=== PATIENT | female | born 1935 | race Caucasian/White ===

== ENCOUNTER 2019-09-13 09:08 | Outpatient (CLI) | payer MEDICARE, SELFPAY ==
[2019-09-13 09:57] LABS: Basophils Absolute Auto 0.1 K/mm3 (0.0-0.1); Basophils Percent Auto 0.5 % (0.2-1.2); Eosinophils Absolute Auto 0.1 K/mm3 (0-0.3); Eosinophils Percent Auto 1.1 % (0-4.4); Hematocrit 37.9 % (37.0-47.0); Hemoglobin 11.7 g/dL (12.0-15.0); Immature Granulocyte Absolute 0.05 K/mm3 (0.00-0.031); Immature Granulocyte Percent A 0.4 % (0-0.5); Lymphocytes Absolute Auto 1.04 K/mm3 (0.9-3.2); Lymphocytes Percent Auto 8.5 % (18.3-44.2); Mean Corpuscular HGB Conc 30.9 g/dl (32-36); Mean Corpuscular Hemoglobin 29.3 pg (26-34); Mean Corpuscular Volume 94.8 fl (80-100); Mean Platelet Volume 12.2 fl (7.4-10.4); Monocytes Percent Auto 8.5 % (2.6-8.5); Neutrophils Absolute Auto 9.9 K/mm3 (1.3-6.7); Platelet Count Result 168 k/mm3 (150-375); Red Cell Distribution Width 14.2 % (11.5-14.5); White Blood Count 12.2 K/mm3 (4.5-10.0)
[2019-09-13 10:03] LABS: Hemoglobin A1C 5.8 % (<5.7)
[2019-09-13 10:05] LABS: Blood Urea Nitrogen 22 mg/dL (7-17); Calcium 10.1 mg/dL (8.4-10.2); Carbon Dioxide 29 mmol/L (22-30); Chloride 102 mmol/L (98-107); Cholesterol 131 mg/dL (0-200); Estimated Glomerular Filt Rate 43; Glucose 110 mg/dL (65-105); HDL Direct 69 mg/dL; Potassium 4.1 mmol/L (3.4-5.0); Sodium 137 mmol/L (137-145); Triglycerides 51 mg/dL (<150)
[2019-09-13 10:16] LABS: LDL Cholesterol Direct 39 mg/dL
== END 2019-09-13 09:09 | disposition home or self-care (01) ==
PROVIDERS: PCP Internal Medicine; Visit Provider Internal Medicine
DX: E78.2 Mixed hyperlipidemia (principal); I10 Essential (primary) hypertension; E11.9 Type 2 diabetes mellitus without complications
CPT/HCPCS: 36415; 80048; 80061; 83036; 85025

== ENCOUNTER 2019-10-19 12:15 | Outpatient (CLI) | payer MEDICARE, SELFPAY ==
[2019-10-19 12:47] LABS: Basophils Percent Auto 0.5 % (0.2-1.2); Eosinophils Absolute Auto 0.3 K/mm3 (0-0.3); Eosinophils Percent Auto 3.8 % (0-4.4); Hemoglobin 11.4 g/dL (12.0-15.0); Immature Granulocyte Absolute 0.03 K/mm3 (0.00-0.031); Immature Granulocyte Percent A 0.4 % (0-0.5); Lymphocytes Absolute Auto 1.51 K/mm3 (0.9-3.2); Lymphocytes Percent Auto 17.8 % (18.3-44.2); Mean Corpuscular HGB Conc 31.7 g/dl (32-36); Mean Corpuscular Hemoglobin 29.8 pg (26-34); Mean Corpuscular Volume 94.2 fl (80-100); Mean Platelet Volume 11.8 fl (7.4-10.4); Monocytes Absolute Auto 0.8 K/mm3 (0.1-0.6); Monocytes Percent Auto 8.9 % (2.6-8.5); Neutrophils Absolute Auto 5.8 K/mm3 (1.3-6.7); Neutrophils Percent Auto 68.6 % (45.5-73.1); Platelet Count Result 176 k/mm3 (150-375); Red Blood Count 3.82 M/mm3 (4.2-5.4); Red Cell Distribution Width 14.6 % (11.5-14.5); White Blood Count 8.5 K/mm3 (4.5-10.0)
[2019-10-19 13:03] LABS: Blood Urea Nitrogen 19 mg/dL (7-17); CRP 2.1 mg/dL (<1.0); Carbon Dioxide 25 mmol/L (22-30); Chloride 106 mmol/L (98-107); Estimated Glomerular Filt Rate 53; Glucose 88 mg/dL (65-105); Potassium 4.4 mmol/L (3.4-5.0); Sodium 137 mmol/L (137-145)
[2019-10-19 13:41] LABS: Erythrocyte Sedimentation Rate 77 mm/hr (0-20)
== END 2019-10-19 12:16 | disposition home or self-care (01) ==
PROVIDERS: PCP Internal Medicine; Visit Provider Internal Medicine
DX: M35.3 Polymyalgia rheumatica (principal); E11.9 Type 2 diabetes mellitus without complications
CPT/HCPCS: 36415; 80048; 85025; 85652; 86140

== ENCOUNTER 2019-11-26 10:24 | Outpatient (CLI) | payer MEDICARE, SELFPAY ==
[2019-11-26 11:17] LABS: Erythrocyte Sedimentation Rate 22 mm/hr (0-20)
[2019-11-26 11:21] LABS: Blood Urea Nitrogen 29 mg/dL (7-17); CRP 0.6 mg/dL (<1.0); Calcium 9.8 mg/dL (8.4-10.2); Carbon Dioxide 26 mmol/L (22-30); Chloride 106 mmol/L (98-107); Estimated Glomerular Filt Rate 39; Glucose 113 mg/dL (65-105); Potassium 4.7 mmol/L (3.4-5.0); Sodium 138 mmol/L (137-145)
[2019-11-26 11:23] LABS: Hemoglobin A1C 5.8 % (<5.7)
== END 2019-11-26 10:25 | disposition home or self-care (01) ==
LOC: ANHLAB 10:27
PROVIDERS: PCP Internal Medicine; Visit Provider Internal Medicine
DX: E11.9 Type 2 diabetes mellitus without complications (principal); M35.3 Polymyalgia rheumatica; I10 Essential (primary) hypertension
CPT/HCPCS: 36415; 80048; 83036; 85652; 86140

== ENCOUNTER 2019-12-14 10:22 | Observation (INO) | payer MEDICARE, SELFPAY ==
[2019-12-14] VITALS (10 sets, daily range): BP systolic 119–163; BP diastolic 67–107; PULSE 80–106; RESP 16–22; TEMP 36.3–37.3; O2SAT 97–100; BMI 28.8
--- NOTE | ~2019-12-14 | XR_ITS ---
EXAMINATION: XR hip BI 2V w AP pelvis DATE: 12/15/2019 08:29 INDICATION: Chronic bilateral hip pain TECHNIQUE: AP view the pelvis and two views of each hip were obtained. COMPARISON: 05/20/2018 FINDINGS: There are changes of left hip hemiarthroplasty. There is moderate right hip osteoarthritis. Bone alignment is normal. There is no fracture. Phleboliths are noted in the pelvis. IMPRESSION: 1. No acute osseous abnormality. Reviewed, dictated and finalized at location B.
--- NOTE | ~2019-12-14 | XR_ITS ---
EXAMINATION: XR chest 1V INDICATION: Leukocytosis and generalized weakness TECHNIQUE: AP view of the chest is obtained COMPARISON: 05/19/2018 FINDINGS: The lungs are free of acute opacities. There is no pleural effusion or pneumothorax. The ca rdiomediastinal silhouette is normal. The visualized bones and soft tissues are unremarkable. IMPRESSION: 1. No acute cardiopulmonary abnormality. Reviewed, dictated and finalized at location B.
[2019-12-14 10:56] LABS: Basophils Percent Auto 0.2 % (0.2-1.2); Eosinophils Percent Auto 0.2 % (0-4.4); Hematocrit 40.5 % (37.0-47.0); Hemoglobin 13.2 g/dL (12.0-15.0); Immature Granulocyte Absolute 0.13 K/mm3 (0.00-0.031); Immature Granulocyte Percent A 0.8 % (0-0.5); Lymphocytes Absolute Auto 1.27 K/mm3 (0.9-3.2); Lymphocytes Percent Auto 7.9 % (18.3-44.2); Mean Corpuscular HGB Conc 32.6 g/dl (32-36); Mean Corpuscular Hemoglobin 31.4 pg (26-34); Mean Corpuscular Volume 96.4 fl (80-100); Mean Platelet Volume 11.6 fl (7.4-10.4); Monocytes Absolute Auto 1.6 K/mm3 (0.1-0.6); Monocytes Percent Auto 9.7 % (2.6-8.5); Neutrophils Percent Auto 81.2 % (45.5-73.1); Platelet Count Result 165 k/mm3 (150-375); Red Cell Distribution Width 15.7 % (11.5-14.5); White Blood Count 16.1 K/mm3 (4.5-10.0)
[2019-12-14 11:10] LABS: Alanine Aminotransferase 23 U/L (4-35); Albumin Level 4.1 g/dL (3.5-5.1); Alkaline Phosphatase 89 U/L (38-126); Aspartate Amino Transferase 31 U/L (14-36); Bilirubin,Total 1.1 mg/dL (0.2-1.3); Blood Urea Nitrogen 21 mg/dL (7-17); Calcium 10.1 mg/dL (8.4-10.2); Carbon Dioxide 28 mmol/L (22-30); Chloride 104 mmol/L (98-107); Creatine Kinase 142 U/L (30-135); Estimated CRCL calculation 33 ml/min; Estimated Glomerular Filt Rate 47; Glucose 106 mg/dL (65-105); Sodium 140 mmol/L (137-145)
--- NOTE | 2019-12-14 11:46 | ED.WEAKNESS ---
HPI - Weakness General Chief complaint: Weakness Stated complaint: Weakness Time Seen by Provider: 12/14/19 11:35 History of Present Illness HPI Narrative: Patient presents via EMS from home after falling on the floor and not being able to get up all night. She has polymyalgia rheumatica, and has severe hip pain. She is currently on prednisone for that, but it is not helping the pain or the weakness. She is unable to sit herself up in the exam bed. She has chronic hip pain. He has been walking with a walker and a cane. She has a lifeline but did not use it last night waiting for her cousin Angelique to come and pick her up. Angelique said she is not strong enough to pick her up. The daughter lives in [place] and was on the phone and wants her mom to go back to rehab. If rehab does not work she will need long-term nursing care. The patient is oriented x3 I would prefer to go back home but does not have sufficient help there. She has not been sick recently. MD Complaint: generalized weakness Onset (ago): hour(s) Duration: constant Location: generalized Context: history of similar Associated symptoms: denies other symptoms Related Data Home Medications Medication Instructions Recorded Confirmed ascorbate calcium (vitamin C) 500 500 mg PO DAILY 04/19/19 11/26/19 mg tablet aspirin 81 mg tablet,delayed 81 mg PO DAILY 04/19/19 11/26/19 release blood sugar diagnostic #10 each 04/19/19 11/26/19 magnesium oxide 400 mg PO DAILY 04/19/19 11/26/19 potassium chloride 10 mEq 10 meq PO DAILY 04/19/19 11/26/19 tablet,extended release vitamin B complex 1 tablet PO DAILY 04/19/19 11/26/19 multivit with 1 tablet PO DAILY 09/21/19 11/26/19 [id number] 8 mg iron-400 mcg-300 mcg tablet Allergies Allergy/AdvReac Type Severity Reaction Status Date / Time No Known Allergies Allergy Unknown Verified 11/26/19 09:48 Review of Systems Review of Systems: Narrative: CONSTITUTIONAL: Denies fever, chills, or sweats. EYES: Denies visual changes, redness, or discharge. ENT: Denies rhinorrhea, congestion, sore throat, or otalgia. CARDIOVASCULAR: Denies chest pain, palpitations, or edema. RESPIRATORY: Denies cough or dyspnea. GASTROINTESTINAL: Denies abdominal pain, nausea, vomiting, or diarrhea. GENITOURINARY: Denies dysuria or hematuria. SKIN: Denies rash or itching. MUSCULOSKELETAL: Denies back pain, but has bilateral hip pain. NEUROLOGIC: Denies headache, numbness, but has generalized weakness.. All systems reviewed & are unremarkable except as noted in HPI and below PMFSH Past Medical History Medical History Abnormal finding of blood chemistry, unspecified Arrhythmia Benign essential hypertension BMI 29.0-29.9,adult BMI 30.0-30.9,adult BMI 31.0-31.9,adult Cellulitis Diastolic dysfunction DJD (degenerative joint disease), multiple sites DM type 2 (diabetes mellitus, type 2) Encounter for routine adult health examination without abnormal findings Follow up Hyperlipidemia On long-term drug therapy Pedal edema Valvular heart disease Social History Social History Second hand tobacco smoke exposure: No Alcohol intake: never Exam Narrative: Exam Narrative: GENERAL: Well-appearing, well-nourished, and in no acute distress. HEAD: Normocephalic, atraumatic. EYES: PERRLA and EOMI. ENT: Nares clear, no rhinorrhea or epistaxis. Mucous membranes moist. NECK: Supple. CHEST: Clear to auscultation. No respiratory distress. HEART: Regular rate and rhythm. No murmur heard. Normal peripheral pulses. ABDOMEN: Soft, nontender, nondistended, normal active bowel sounds. EXTREMITIES: Normal range of motion. No edema. SKIN: Warm, dry, no rash. NEURO: No focal deficits. Alert and oriented x3. PSYCH: Normal mood and affect. Course Consultations Consultation #1: The daughter from [place] was on the phone and wants her mom to
[2019-12-14 12:13] LABS: Add Urine Microscopic? YES; Appearance Urine Clear (Clear); Bilirubin Urine Negative (Negative); Blood Urine Negative (Negative); Color Urine Yellow (Yellow); Glucose Urine UA Negative (Negative); Ketones Urine Trace mg/dL (Negative); Leukocyte Esterase Ur Negative LEU/UL (Negative); Nitrate Urine Negative (Negative); Protein Urine Negative (Negative); RBC Urine 0-2 /hpf (0-2); Specific Grav Ur 1.011 (1.001-1.035); Urobilinogen Urine Negative mg/dL (<2.0)
[2019-12-14 13:28] LABS: CRP 6.8 mg/dL (<1.0)
[2019-12-14 14:05] LABS: Erythrocyte Sedimentation Rate 44 mm/hr (0-20)
--- NOTE | 2019-12-14 14:22 | ADMGEN ---
This patient, Nery Agrawal, was admitted to 3 Med Surg Room 322-01. Patient/family oriented to hospital policies and general routines including ID bracelet, bed and alarms, visiting hours, pain management, procedures, bathroom and other care routines, personal items, smoking policy, room service/diet, and visiting hours. Valuables list has been completed. Information on how to activate the Rapid Response Team has been discussed. Patient/Family are encouraged to report perceived risks to care and to ask questions if they do not understand what they are told or what they should do.
--- NOTE | 2019-12-14 16:00 | PM.IMHP ---
H&P: HPI History of Present Illness Chief complaint: Generalized weakness. Narrative: Nery Agrawal is an 84-year-old female with history of memory loss, paroxysmal atrial fibrillation, hypertension, chronic kidney disease, and polymyalgia rheumatica presented to the emergency department earlier this morning via EMS from home for evaluation of generalized weakness. She was seen by Dr. Cheikh Galvan on October 19, 2019 with complaints of 3 to 4 weeks worth aching in her shoulders hips and low back. She was started on prednisone 40 milligrams for polymyalgia rheumatica and was doing much better when she was seen in follow-up on November 25. Unfortunately her symptoms worsened when her steroid taper hit 10 mg a day. She has pain and weakness, more so in her left hip but she has aching in her lower back and upper arms/shoulders as well. last night when she tried to get up to go to the bathroom, she was too weak to stand up, and she slid herself off the chair and onto her buttocks on the floor. She is able to scoot around but could not get herself up to the toilet so she lie on the floor from around midnight until 0930. It sounds as though a cousin came to check up on the patient and found her on the floor. She has a Life Alert necklace however did not push the button because I forgot it was there. At the time my evaluation she has no active complaints. Her children think that she needs to go to a rehab facility, and she is okay with that but she is hesitant to move to assisted living. She denies falling last night and tells me she purposely slid herself off the chair onto the floor as she knew she would fall if she stood up. She denies head trauma and loss of consciousness. She sustained no injuries. She has not had fever, chills, or sweats. No nausea, vomiting, or diarrhea. No dysuria. Review of Systems Review of Systems: Narrative: Twelve systems were reviewed with pertinent positives and negatives as per HPI. No fever, chills, or sweats. No recent cold or flu symptoms. She denies cough and shortness of breath. No travel or sick contacts. She denies chest pain, pleuritic pain, and palpitations. She is not on long-term anticoagulation for her paroxysmal atrial fibrillation, presumably due to fall risk. Except as documented, all other systems were reviewed and are negative. [facility] Past Medical History Medical History (Updated 12/14/19 @ 22:50 by Arianne Mcfadden PA-C) Benign essential hypertension Cellulitis Chronic kidney disease, stage 3 Baseline creatinine around 1.20. Degenerative joint disease Diastolic dysfunction recent echocardiogram showed mild mitral valve regurgitation, grade 1 diastolic dysfunction, ejection fraction of 69%. Hyperlipidemia Kidney stones Memory loss Parathyroid adenoma Paroxysmal atrial fibrillation Polymyalgia rheumatica Type 2 diabetes mellitus Hemoglobin A1c was 5.8% on 11/26/2019. Valvular heart disease Surgical History Surgical History (Updated 12/14/19 @ 20:50 by Arianne Mcfadden PA-C) History of bunionectomy of both great toes History of parathyroidectomy Family History Family History Father Family history of diabetes mellitus in first degree relative Diabetes mellitus Mother Family history of malignant neoplasm of brain Hypertension Other Family history of coronary artery disease Social History Social History (Updated 12/14/19 @ 20:52 by Arianne Mcfadden PA-C) Social History: Surrogate decision maker: Therese Agrawal, daughter. Code status: Full code. Smoking status: Never smoker Second hand tobacco smoke exposure: No Alcohol intake: current Substance use type: does not use Additional living arrangements comments: Patient lives in her own home in [place]. Occupation/Education: retired Gender identity (if verbalized by the patient): Female Sexual Orientation (if Verbalized by the Patien
[2019-12-14] MEDS: METOPROLOL TARTRATE 25 MG TABLET PO (21:42)
[2019-12-14] MEDS: predniSONE 20 MG TABLET 40 MG PO (21:42)
[2019-12-14] MEDS: SODIUM CHLORIDE 0.9% IV 500 ML IV CONT (23:25)
[2019-12-15 06:00] VITALS: BP 172/79; PULSE 76; RESP 18; TEMP 36.7; O2SAT 96
[2019-12-15 06:13] LABS: Basophils Percent Auto 0.1 % (0.2-1.2); Hematocrit 37.1 % (37.0-47.0); Hemoglobin 11.8 g/dL (12.0-15.0); Immature Granulocyte Absolute 0.07 K/mm3 (0.00-0.031); Immature Granulocyte Percent A 0.9 % (0-0.5); Lymphocytes Absolute Auto 0.44 K/mm3 (0.9-3.2); Lymphocytes Percent Auto 5.4 % (18.3-44.2); Mean Corpuscular HGB Conc 31.8 g/dl (32-36); Mean Corpuscular Hemoglobin 30.6 pg (26-34); Mean Corpuscular Volume 96.1 fl (80-100); Mean Platelet Volume 11.6 fl (7.4-10.4); Monocytes Absolute Auto 0.3 K/mm3 (0.1-0.6); Monocytes Percent Auto 3.2 % (2.6-8.5); Neutrophils Absolute Auto 7.3 K/mm3 (1.3-6.7); Neutrophils Percent Auto 90.4 % (45.5-73.1); Platelet Count Result 148 k/mm3 (150-375); Red Blood Count 3.86 M/mm3 (4.2-5.4); Red Cell Distribution Width 15.5 % (11.5-14.5); White Blood Count 8.1 K/mm3 (4.5-10.0)
[2019-12-15 06:29] LABS: Glucose Point of Care 125 (65-105)
[2019-12-15 06:46] LABS: Anion Gap 9.2 mmol/L (7-16); Blood Urea Nitrogen 21 mg/dL (7-17); Calcium 9.1 mg/dL (8.4-10.2); Carbon Dioxide 25 mmol/L (22-30); Chloride 106 mmol/L (98-107); Estimated CRCL calculation 36 ml/min; Estimated Glomerular Filt Rate 53; Glucose 130 mg/dL (65-105); Potassium 4.2 mmol/L (3.4-5.0); Sodium 136 mmol/L (137-145)
[2019-12-15 08:49] LABS: Glucose Point of Care 124 (65-105)
[2019-12-15] MEDS: IRBESARTAN 150 MG TABLET 300 MG PO (08:55)
[2019-12-15] MEDS: THERAPEUTIC MULTIVITAMINS/MINERALS TAB (*BKC) 1 TABLET PO (08:55)
[2019-12-15] MEDS: MAGNESIUM OXIDE 400 MG TABLET PO (08:55)
[2019-12-15] MEDS: VITAMIN B COMPLEX CAPSULE 1 CAP PO (08:55)
[2019-12-15] MEDS: FUROSEMIDE 40 MG TABLET PO (08:56)
[2019-12-15] MEDS: predniSONE 20 MG TABLET 40 MG PO (08:56)
[2019-12-15] MEDS: ASPIRIN 81 MG ENTERIC TABLET PO (08:56)
[2019-12-15] MEDS: POTASSIUM CHLORIDE 10 MEQ TABLET.ER PO (08:56)
[2019-12-15] MEDS: ASCORBIC ACID 500 MG TABLET PO (08:56)
[2019-12-15 08:57] VITALS: PULSE 62
[2019-12-15] MEDS: METOPROLOL TARTRATE 25 MG TABLET PO (08:57)
--- NOTE | 2019-12-15 11:08 | PM.IMPN ---
Progress Note: A&P Assessment and Plan (1) Polymyalgia rheumatica: Code(s): M35.3 - Polymyalgia rheumatica Status: Acute Assessment and Plan: Patient recently diagnosed by PCP with PMR and was started on prednisone. It seems her symptoms worsened (MIQUEL hip pain, weakness primarily) as her prednisone dose tapered lower. Previous provider discussed with Dr Galvan a longer prednisone taper. XR of MIQUEL hips unremarkable. Care coordination arranging discharge to SNF. Ordered COVID test for discharge planning. (2) Generalized weakness: Code(s): R53.1 - Weakness Status: Acute Assessment and Plan: PT/OT. Anticipate possible discharge to rehab. (3) Chronic kidney disease, stage 3: Code(s): N18.3 - Chronic kidney disease, stage 3 (moderate) Status: Chronic Assessment and Plan: Cr stable on review of previous labs. (4) Type 2 diabetes mellitus: Code(s): E11.9 - Type 2 diabetes mellitus without complications Status: Acute Assessment and Plan: A1c 5.8% on 11/26/2019. Hold home Jardiance. Monitor with Accu-cheks and cover with SSI. Blood sugars appropriate this morning. (5) Benign essential hypertension: Code(s): I10 - Essential (primary) hypertension Status: Acute Assessment and Plan: BP elevated this AM prior to mornning medications. Continue home lopressor and monitor. Will add PRN hydralazine if needed. (6) Leukocytosis: Code(s): D72.829 - Elevated white blood cell count, unspecified Status: Resolved Assessment and Plan: Resolved today. Likely due to recent steroid use and inflammation from PMR; no infectious process suspected. Subjective Date/time seen: 12/15/19 1030 Interval history: Ms. Agrawal is a pleasant 84yo F admitted for weakness and hip pain with polymyalgia rheumatica. She is feeling a bit better this morning. She is agreeable to discharging to rehab. She denies chest pain or shortness of breath. She denies nausea or vomiting and has tolerated some breakfast. Review of Systems Review of Systems: Narrative: Twelve systems were reviewed with pertinent positives and negatives as per HPI. Exam Narrative: Exam Narrative: General: Elderly female sitting comfortably in bedside chair in no acute distress. HEENT: Normocephalic, EOMI, oral mucosa moist. Cardiovascular: Rate and rhythm are regular. Respiratory: Lungs clear to auscultation all [place]. Non-labored breathing. Abdomen: Soft, non-tender, non-distended, bowel sounds present. Extremities: Peripheral pulses intact. No edema. Neuro: No focal neurological deficits. Speech is clear. Objective Data Vital Signs Vital Signs: Last Vital Signs Temp 98.0 F 12/15/19 06:00 Pulse 62 12/15/19 08:57 Resp 18 12/15/19 06:00 BP 172/79 H 12/15/19 06:00 Pulse Ox 96 12/15/19 06:00 Intake/Output Intake/Output: Intake & Output 12/12/19 12/13/19 12/14/19 12/15/19 23:59 23:59 23:59 23:59 Intake Total 300 820 Output Total 400 Balance 300 420 Meds/Results Medications: Active Medications Generic Name Dose Route Start Last Admin Trade Name Freq PRN Reason Stop Dose Admin Ascorbic Acid 500 mg 12/15/19 09:00 12/15/19 08:56 Vitamin C PO 500 mg DAILY VANI Administration Aspirin 81 mg 12/15/19 09:00 12/15/19 08:56 Aspirin Ec PO 81 mg DAILY VANI Administration Dextrose 12.5 gm 12/14/19 22:52 Dextrose 50% Syringe IV PUSH PRN PRN Hypoglycemia Protocol Furosemide 40 mg 12/15/19 09:00 12/15/19 08:56 Lasix Tablet PO 40 mg QAM VANI Administration Glucagon 1 mg 12/14/19 22:52 Glucagon For Inj IM PRN PRN Hypoglycemia Protocol Glucose 15 gm 12/14/19 22:52 Glutose 15 PO
[2019-12-15 12:47] LABS: Glucose Point of Care 123 (65-105)
[2019-12-15 14:00] VITALS: BP 138/74; PULSE 77; RESP 18; TEMP 36.8; O2SAT 98
--- NOTE | 2019-12-19 05:19 | PM.DS ---
DS: Admitting Diagnosis Admitting Diagnosis Admitting Diagnosis: Polymyalgia rheumatica DS: Discharge Diagnosis Discharge Diagnosis (1) Polymyalgia rheumatica: Code(s): M35.3 - Polymyalgia rheumatica Status: Acute Assessment and Plan: Patient recently diagnosed by PCP with PMR and was started on prednisone. It seems her symptoms worsened (MIQUEL hip pain, weakness primarily) as her prednisone dose tapered lower. Previous provider discussed with Dr Galvan a longer prednisone taper. XR of MIQUEL hips unremarkable. Discharge to [facility] for continued PT/OT. (2) Generalized weakness: Code(s): R53.1 - Weakness Status: Acute Assessment and Plan: PT/OT. TR. (3) Chronic kidney disease, stage 3: Code(s): N18.3 - Chronic kidney disease, stage 3 (moderate) Status: Chronic Assessment and Plan: Cr stable on review of previous labs. (4) Type 2 diabetes mellitus: Code(s): E11.9 - Type 2 diabetes mellitus without complications Status: Acute Assessment and Plan: A1c 5.8% on 11/26/2019. Hold home Jardiance. Blood sugars appropriate this morning. (5) Benign essential hypertension: Code(s): I10 - Essential (primary) hypertension Status: Acute Assessment and Plan: BP elevated this AM prior to mornning medications. BP improved to 138/74 prior to discharge, continue home Lopressor. (6) Leukocytosis: Code(s): D72.829 - Elevated white blood cell count, unspecified Status: Resolved Assessment and Plan: Resolved today. Likely due to recent steroid use and inflammation from PMR; no infectious process suspected. DS: Summary Hospital Course Hospital Course: Date of Service 12/15/19 Ms. Agrawal is an 84 yo F who had recently be diagnosed with polymyalgia rheumatica by her PCP and was prescribed prednisone taper, who presented to the ED for evaluation of worsening bilateral hip pain. She laid on the floor from 0000 to 0930 when family found her as she could not get off the floor. She described that her symptoms were improved on prednisone but began to worsen once the dose tapered down to 10mg daily. She was otherwise medically stable. Previous PA spoke with patient's PCP, Dr Galvan, and they agreed on restarting prednisone at 40 mg daily with a longer taper. She worked with PT/ OT and was felt to be a good candidate for continued therapy at [facility]. She was hemodynamically stable for discharge to [facility] on 12/15/19 and will follow up with Dr Galvan after her discharge. Time Spent with Patient Time attestation: Total time spent providing and/or coordinating discharge services: 35 minutes Exam Narrative: Exam Narrative: Last Vital Signs Temp 98.3 F 12/15/19 14:00 Pulse 77 12/15/19 14:00 Resp 18 12/15/19 14:00 BP 138/74 12/15/19 14:00 Pulse Ox 98 12/15/19 14:00 General: Elderly female sitting comfortably in bedside chair in no acute distress. HEENT: Normocephalic, EOMI, oral mucosa moist. Cardiovascular: Rate and rhythm are regular. Respiratory: Lungs clear to auscultation all [place]. Non-labored breathing. Abdomen: Soft, non-tender, non-distended, bowel sounds present. Extremities: Peripheral pulses intact. No edema. Neuro: No focal neurological deficits. Speech is clear. DS: Data Imaging Radiologist's impression: ITS Impressions Chest X-Ray 12/15/19 08:35 IMPRESSION: 1. No acute cardiopulmonary abnormality. Hip/Pelvis X-Ray 12/15/19 08:38 IMPRESSION: 1. No acute osseous abnormality. Laboratory Tests 12/15/19 05:53 12/15/19 05:53 Discharge Plan Discharge Attending aric
== END 2019-12-15 16:45 ==
LOC: ANHED 12:33 → ANH3MEDSUR 13:33
PROVIDERS: Physician Assistant; Admitting Provider Internal Medicine; Emergency Provider Emergency Medicine; PCP Internal Medicine; Visit Provider Family Medicine
DX: M35.3 Polymyalgia rheumatica (principal); R53.1 Weakness; D72.829 Elevated white blood cell count, unspecified; I13.0 Hypertensive heart and chronic kidney disease with heart failure and stage 1 through stage 4 chronic kidney disease, or unspecified chronic kidney disease; E78.5 Hyperlipidemia, unspecified; I48.0 Paroxysmal atrial fibrillation; N18.3 Chronic kidney disease, stage 3 (moderate); E11.22 Type 2 diabetes mellitus with diabetic chronic kidney disease; I50.30 Unspecified diastolic (congestive) heart failure; Z79.82 Long term (current) use of aspirin
CPT/HCPCS: 36415; 51701; 71045; 73521; 80048; 80053; 81001; 82550; 84443; 85025; 85652; 86140; 97161; 97165; 99285; A9270; G0378; J7040; J7512

== ENCOUNTER 2019-12-15 16:54 | IRF | payer MEDICARE, SELFPAY ==
[2019-12-15 16:54] VITALS: BP 117/75; PULSE 56; RESP 18; TEMP 36.4; O2SAT 98; BMI 30.4
--- NOTE | 2019-12-15 16:54 | PC.NURSE ---
This patient, Nery Agrawal, was admitted to [facility] Room 221-02. Patient/family oriented to hospital policies and general routines including ID bracelet, bed and alarms, visiting hours, pain management, procedures, bathroom and other care routines, personal items, smoking policy, room service/diet, and visiting hours. Valuables list has been completed. Information on how to activate the Rapid Response Team has been discussed. Patient/Family are encouraged to report perceived risks to care and to ask questions if they do not understand what they are told or what they should do.
[2019-12-15 17:09] VITALS: BMI 30.4
[2019-12-15 17:12] VITALS: PULSE 58; RESP 18; O2SAT 97
[2019-12-15 20:55] VITALS: PULSE 66
[2019-12-15] MEDS: METOPROLOL TARTRATE 25 MG TABLET PO (20:55)
--- NOTE | 2019-12-15 20:56 | PM.DS ---
DS: Summary Hospital Course Hospital Course: Date of Service 12/15/19 Ms. Agrawal is an 84yo F Time Spent with Patient Time attestation: Total time spent providing and/or coordinating discharge services: 35 minutes Discharge Plan Discharge Follow-up/Referrals: Dr Galvan [Provider Group] (Follow up; call for appointment once you have discharged from rehab unit at [phone]) Discharge Medications: No Action Centrum Silver Women 8 mg iron-400 mcg-300 mcg tablet 1 tablet PO DAILY RF: 0 prednisone 10 mg tablet 40 mg PO DAILY 56 Days Qty: 140 RF: 0 furosemide [Lasix] 40 mg tablet 40 mg PO QAM RF: 0 aspirin [Adult Low Dose Aspirin] 81 mg tablet,delayed release (DR/EC) 81 mg PO DAILY RF: 0 vitamin B complex Tablet 1 tablet PO DAILY RF: 0 magnesium oxide 400 mg magnesium tablet 400 mg PO DAILY RF: 0 (DME) Blood Glucose Test Strip See Rx Instructions .ROUTE .MEDSUPPLY Qty: 10 RF: 0 ascorbate calcium (vitamin C) 500 mg tablet 500 mg PO DAILY RF: 0 potassium chloride [Klor-Con 10] 10 mEq tablet extended release 10 meq PO DAILY RF: 0 triamcinolone acetonide 0.1 % cream 1 applic TOPICAL BID Qty: 30 RF: 1 nystatin 100,000 unit/gram cream 1 applic TOPICAL BID Qty: 30 RF: 1 Januvia 100 mg tablet 100 mg PO DAILY Qty: 90 RF: 3 metoprolol tartrate 25 mg tablet 25 mg PO BID Qty: 180 RF: 3 rosuvastatin 10 mg tablet 10 mg PO DAILY Qty: 90 RF: 3 irbesartan 300 mg tablet 300 mg PO DAILY Qty: 90 RF: 3 Date of admission: 12/15/19 16:54 Primary Care Provider: Cheikh Galvan Admitting Provider: Jose R Donovan Attending physician on admission: Jose R Donovan
[2019-12-15 21:18] LABS: Glucose Point of Care 173 (65-105)
[2019-12-15 22:00] VITALS: BP 135/87; PULSE 75; RESP 17; TEMP 36.4; O2SAT 98
[2019-12-16 04:59] LABS: Basophils Percent Auto 0.2 % (0.2-1.2); Eosinophils Absolute Auto 0.1 K/mm3 (0-0.3); Eosinophils Percent Auto 0.4 % (0-4.4); Hematocrit 37.3 % (37.0-47.0); Immature Granulocyte Percent A 0.8 % (0-0.5); Lymphocytes Absolute Auto 1.24 K/mm3 (0.9-3.2); Lymphocytes Percent Auto 9.3 % (18.3-44.2); Mean Corpuscular HGB Conc 32.2 g/dl (32-36); Mean Corpuscular Volume 96.4 fl (80-100); Mean Platelet Volume 11.3 fl (7.4-10.4); Monocytes Absolute Auto 1.4 K/mm3 (0.1-0.6); Monocytes Percent Auto 10.4 % (2.6-8.5); Neutrophils Absolute Auto 10.5 K/mm3 (1.3-6.7); Neutrophils Percent Auto 78.9 % (45.5-73.1); Platelet Count Result 156 k/mm3 (150-375); Red Blood Count 3.87 M/mm3 (4.2-5.4); Red Cell Distribution Width 15.3 % (11.5-14.5); White Blood Count 13.3 K/mm3 (4.5-10.0)
[2019-12-16 05:17] LABS: Anion Gap 7.8 mmol/L (7-16); Blood Urea Nitrogen 31 mg/dL (7-17); Calcium 9.1 mg/dL (8.4-10.2); Carbon Dioxide 29 mmol/L (22-30); Chloride 103 mmol/L (98-107); Estimated CRCL calculation 34 ml/min; Estimated Glomerular Filt Rate 47; Glucose 128 mg/dL (65-105); Potassium 3.8 mmol/L (3.4-5.0); Sodium 136 mmol/L (137-145)
[2019-12-16 06:00] VITALS: BP 149/60; PULSE 60; RESP 18; TEMP 36.3; O2SAT 96
[2019-12-16 06:58] LABS: Glucose Point of Care 98 (65-105)
[2019-12-16] MEDS: ASPIRIN 81 MG ENTERIC TABLET PO (08:35)
[2019-12-16] MEDS: FUROSEMIDE 40 MG TABLET PO (08:35)
[2019-12-16] MEDS: ASCORBIC ACID 500 MG TABLET PO (08:35)
[2019-12-16 08:36] VITALS: PULSE 60
[2019-12-16] MEDS: THERAPEUTIC MULTIVITAMINS/MINERALS TAB (*BKC) 1 TABLET PO (08:36)
[2019-12-16] MEDS: IRBESARTAN 150 MG TABLET 300 MG PO (08:36)
[2019-12-16] MEDS: METOPROLOL TARTRATE 25 MG TABLET PO ×2 (08:36→20:49)
[2019-12-16] MEDS: MAGNESIUM OXIDE 400 MG TABLET PO (08:36)
[2019-12-16] MEDS: POTASSIUM CHLORIDE 10 MEQ TABLET.ER PO (08:36)
[2019-12-16] MEDS: predniSONE 10 MG TABLET 40 MG PO (08:37)
[2019-12-16] MEDS: ROSUVASTATIN 10 MG TABLET PO (08:37)
[2019-12-16] MEDS: VITAMIN B COMPLEX CAPSULE 1 CAP PO (08:37)
--- NOTE | 2019-12-16 10:00 | WPDREHABHP ---
H&P: HPI History of Present Illness Chief complaint: Debility/Polymyalgia/Rheumatica Narrative: Nery Agrawal is a 84 year old femaleHISTORY OF PRESENT ILLNESS: The patient's primary rehab impairment category is rheumatoid and other arthritis The etiologic diagnosis is polymyalgia rheumatica with significant weakness of both upper lower extremities proximal distance about equally involved and generalize weakness and aches and pains starting from the lower part of the neck all the way down to her feet and ankles I saw this patient [id number] on December 16, 2019 at 10:00 a.m. The patient is a very pleasant 84-year-old woman with a history of memory loss, proximal atrial fibrillation, hypertension, chronic kidney disease and polymyalgia rheumatica which was initially diagnosed several weeks ago and she was on prednisone on doing fairly well she presented to [facility]'s emergency department on December 14, 2019. She arrived via EMS from home for evaluation of generalized weakness. The patient was initially seen by her primary care physician on October 19, 2019 with complaints of 3 to 4 weeks worth of aching in her shoulders hips and low back. She was started on prednisone 40 milligram for new diagnosis of polymyalgia rheumatica and was doing much better when she was seen for follow-up on November 25. Unfortunately her symptoms worsened where his toy taper hit 10 milligram a day. She had pain and weakness more in her left hip but also in the lower back and upper arms and shoulders. On the night of December 13, 2019 when the patient tried to get up to the bathroom she was too weak to stand up. She then slid herself off the chair onto her buttocks on the floor. She was able to scoot around but could not get herself up the toilet so she continue to lie on the floor from 12:00 a.m. until 9:30 a.m. on December 14, 2019 her cousin came to check on the patient and found her on the floor. She has a Life Alert necklace but did not push the button because she forgot it was there. The patient vital signs in the emergency room were fairly decent and oxygenation on room air was 99% blood pressure was also fairly decent [place] [address] and decent BUN and creatinine and glucose of 106 on December 15, 2019 the patient's x-rays of chest and hip and pelvis revealed no abnormalities. Lab work revealed hemoglobin of 11.8 sodium 136 BUN of 21 and creatinine of 1.0. The glucose was 125 the patient's A1c was noted to be 5.8 and November 25 so the hospitalist held her home GERD aunts and the patient will become monitored and covered with a sliding scale insulin the patient blood pressure has been elevated during this hospital stay and her home medications Lopressor was continued and p.r.n. hydralazine was added. The patient will require belt pressure monitoring and medication adjustments prior to discharge home. Lab work we monitoring the rehab due to elevated BUN and also CRP glucose and low hemoglobin. The patient initial treatment of polymyalgia rheumatica was unsuccessful with the patient is having performed weakness and intractable pain resulting in hospitalization. Patient presents less awake alert well oriented x3 and demonstrated significant decrease in the strength gait deviation higher imbalance and significant amount of the pain weakness is much more performed in the lower extremities than the upper extremities and aches and pains her prednisone has been increased back to 40 milligram daily for right now Therapy was initiated at the acute care facility and the patient transferred to us from [facility] on December 15, 2019 FALLS OR SURGERIES: The patient has had no major surgeries in the 100 days prior to admission. They had falls in the past year. They had no falls with injury in the past year. PAST MEDICAL HISTORY: benign essential hypertension, cellulitis, chronic kidney disease stage 3, did to joint disease, diastolic dysfunction, hype
[2019-12-16 12:09] LABS: Glucose Point of Care 148 (65-105)
[2019-12-16 12:26] VITALS: BMI 30.4
[2019-12-16 14:00] VITALS: BP 125/79; PULSE 74; RESP 20; TEMP 37.1; O2SAT 95
--- NOTE | 2019-12-16 14:53 | PCCCNOTE ---
On 12/16/19, the student, [Augusto Naqvi ], provided care and completed [facility] documentation on this patient. I have reviewed the student's documentation and agree with the findings.
--- NOTE | 2019-12-16 15:33 | RPD ---
INDIVIDUALIZED PLAN OF CARE FOR Nery Agrawal Brief Synthesis of Pre-Admission Screen, Post-Admission Evaluation and Therapy Evaluations: The patient presents to rehab with polymyalgia rheumatica. Comorbidities include leukocytosis, stage 3 CKD, polymyagia rheumatica, type 2 diabetes mellitus, diastolic dysfunction, DJD, paroxysmal atrial fibrillation, hyperlipidemia, hypertension, hyponatremia, cellulitis, valvular heart disease, pedal edema, anemia, hyperglycemia, and pain. The patient?s needs will be best met in an intensive program vs. at a lower level of care. The patient requires physician services for medical oversight, management of medical complications during her hospital stay in the setting of present comorbidities, and pain management. The patient requires nursing services for medication management and education, pressure relief and skin care management, monitoring of labs, diabetes management and education, and fall/safety precautions. Deficits include:ADLs, Balance, Cognition, Endurance, Family Training/Education, Mobility, Pain Management, ROM, Safety, Strength, Transfers Machine Slat Basket Maker/Case Management for: Discharge Planning and Patient/Family Counseling Physical Therapy: 5 days per week for 75 minutes. Treatments may include: Therapeutic Exercise, Gait Training, Neuromuscular Re-education, Transfer Training, Community Reintegration, Bed Mobility, Patient/Family Education, Wheelchair Mobility Group Therapy/Concurrent Therapy Rationales: -Improve attention span during functional activities in a distracted environment. -Enhance problem solving and/or adequate judgment skills during functional activities in a distracted environment. -Promote increased safety awareness in a distracted environment to reduce fall risk with functional tasks, transfers, and ambulation to allow a more safe, self-sufficient return to the home environment. -Improve dynamic balance skills to promote safety and independence with functional activities in a distracted environment for maximum gain. Occupational Therapy: 5 days per week for 75 minutes. Treatments may include: Therapeutic Exercise, Therapeutic Activity, Cognitive Training, Self-Care Transfer Training, Community Reintegration, Home Management, Patient/Family Education, Wheelchair Mobility Training, Energy Conservation Training Group Therapy/Concurrent Therapy Rationales: -Allow therapist to observe and teach generalization and carry-over of skills learned in individual therapy. -Enhance problem solving and sequencing skills during therapeutic activities in a distracted environment. -Promote increased safety awareness in a realistic setting to reduce fall risk with functional tasks due to visual and verbal distractions. -Increase functional level with ADLs, ADL transfers and use of adaptive equipment through therapeutic activities with others while promoting safety to allow a more safe, self-sufficient return home. Speech Therapy: 5 days per week for 30 minutes. Treatments may include: Dysphasia Therapy, Speech/Language/Communication Therapy, Cognitive Training, Patient/Family Education Group Therapy/Concurrent Therapy - Rationale: -Allow therapist to observe and teach generalization and carry-over of skills learned in individual therapy. -Improve comprehension skills with complex or abstract ideas through discussion in a realistic setting. -Enhance problem solving skills with complex issues during activities in a distracted environment. -Promote increased memory skills and concentration in a distracted environment for a safe transition home. -Improve attention and focus with language/communication skills in a realistic and supportive therapeutic setting. -Allow for practice of expression of basic needs and ideas through functional activities with others. Medical Prognosis: Good Anticipated Length of Stay: 7 days Rehab Goals: Eating Goal: 06-Independent Oral Hygiene Goal: 06-Independent Toileting Hygie
[2019-12-16 17:08] LABS: Glucose Point of Care 224 (65-105)
[2019-12-16 20:49] VITALS: PULSE 68
[2019-12-16 21:23] LABS: Glucose Point of Care 95 (65-105)
[2019-12-16 22:00] VITALS: BP 150/72; PULSE 70; RESP 19; TEMP 36.6; O2SAT 99
[2019-12-17 04:55] LABS: Potassium 3.9 mmol/L (3.4-5.0)
[2019-12-17 06:00] VITALS: BP 136/68; PULSE 54; RESP 16; TEMP 36.3; O2SAT 95
[2019-12-17 06:40] LABS: Glucose Point of Care 91 (65-105)
[2019-12-17] MEDS: ASPIRIN 81 MG ENTERIC TABLET PO (09:32)
[2019-12-17] MEDS: ASCORBIC ACID 500 MG TABLET PO (09:33)
[2019-12-17] MEDS: IRBESARTAN 150 MG TABLET 300 MG PO (09:33)
[2019-12-17] MEDS: FUROSEMIDE 40 MG TABLET PO (09:33)
[2019-12-17 09:38] VITALS: PULSE 54
[2019-12-17] MEDS: THERAPEUTIC MULTIVITAMINS/MINERALS TAB (*BKC) 1 TABLET PO (09:38)
[2019-12-17] MEDS: MAGNESIUM OXIDE 400 MG TABLET PO (09:38)
[2019-12-17] MEDS: POTASSIUM CHLORIDE 10 MEQ TABLET.ER PO (09:38)
[2019-12-17] MEDS: METOPROLOL TARTRATE 25 MG TABLET PO ×2 (09:38→20:35)
[2019-12-17] MEDS: ROSUVASTATIN 10 MG TABLET PO (09:39)
[2019-12-17] MEDS: predniSONE 10 MG TABLET 40 MG PO (09:39)
[2019-12-17] MEDS: VITAMIN B COMPLEX CAPSULE 1 CAP PO (09:40)
[2019-12-17 11:55] LABS: Glucose Point of Care 116 (65-105)
--- NOTE | 2019-12-17 13:53 | PCPTNOTE ---
Nery Laura Agrawal was evaluated for a wheeled walker on 12/17/2019 by this physical therapist internal medicine physician assistant. The wheeled walker will resolve patient's mobility limitations and will be used for ADL's within the home. The patient can safely use the wheeled walker. ?The wheeled walker will resolve the patient?s mobility deficits, including impaired balance and decreased endurance.
[2019-12-17 14:00] VITALS: BP 103/64; PULSE 50; RESP 18; TEMP 36.7; O2SAT 98
--- NOTE | 2019-12-17 14:40 | WPDNEURORHBP ---
Subjective Date/time seen: 12/17/19 14:40 Interval history: this 84-year-old is here because of significant debility related to body myalgia rheumatica she is relatively better comparing to previous several days being on a higher dose of prednisone she denies any headache nausea vomiting chest pain shortness of breath she is hard of hearing which is stable her daughter worse present who is from [facility] and her questions were answered to the best of my ability Review of Systems Review of Systems: All systems reviewed & are unremarkable except as noted in HPI and below Functional Status Ambulation Ability Ability to Ambulate 10 Feet: Contact Guard Ability to Ambulate 50 Feet With 2 Turns: Contact Guard Ambulation Assistive Devices: Walker, Wheeled Transfers Ability Ability to Transfer In/Out of Chair: Contact Guard Exam Const: General: comfortable and no acute distress HENMT: General nose exam: Normal nares present Mouth: Yes moist mucous membranes Eyes: General: appearance normal, both eyes and all related structures Neck: Neck: supple and no JVD Resp: Effort & Inspection: normal respiratory effort Auscultation: clear to auscultation bilaterally Cardio: Rate: regular rate Rhythm: regular rhythm GI: GI Palp: Yes Soft to palpation Auscultation: normal bowel sounds Skin: General skin exam: normal color and no rashes or lesions noted Neuro: Other: patient is awake alert well oriented with mild short-term memory deficit and also [id number] she has generalized weakness of both upper lower extremities proximal more than distal and the arthritic changes and multiple tender spots throughout her upper and lower extremities including the upper torso on the lower torso Extrem: Other: arthritic changes in the hands ankles and the feet Psych: Mental Status: mental status grossly normal Other: mild short-term memory deficit Objective Data Vital Signs Vital Signs: Vital Signs - 24 hr 12/16/19 20:49 12/16/19 22:00 12/17/19 06:00 Temperature 36.6 C 36.3 C L Pulse Rate 68 70 54 L Respiratory Rate 19 16 Blood Pressure 150/72 H 136/68 Pulse Oximetry 99 95 12/17/19 09:38 Temperature Pulse Rate 54 L Respiratory Rate Blood Pressure Pulse Oximetry Intake/Output Intake/Output: Intake & Output 12/14/19 12/15/19 12/16/19 12/17/19 23:59 23:59 23:59 23:59 Intake Total 480 240 Balance 480 240 Meds/Results Medications: Active Medications Generic Name Dose Route Start Last Admin Trade Name Fareed PRN Reason Stop Dose Admin Ascorbic Acid 500 mg 12/16/19 09:00 12/17/19 09:33 Vitamin C PO 500 mg DAILY [facility] Administration Aspirin 81 mg 12/16/19 09:00 12/17/19 09:32 Aspirin Ec PO 81 mg DAILY [facility] Administration Furosemide 40 mg 12/16/19 09:00 12/17/19 09:33 Lasix Tablet PO 40 mg QAM [facility] Administration Irbesartan 300 mg 12/16/19 09:00 12/17/19 09:33 Avapro PO 300 mg DAILY [facility] Administration Magnesium Oxide 400 mg 12/16/19 09:00 12/17/19 09:38 Mag-Ox PO 400 mg DAILY [facility] Administration Metoprolol Tartrate 25 mg 12/15/19 21:00 12/17/19 09:38 Lopressor PO 25 mg Q12HR [facility] Administration Multivitamins/Calcium 1 tablet 12/16/19 09:00 12/17/19 09:38 Therapeutic Multivitamins/Minerals PO 1 tablet DAILY [facility] Administration Non-Formulary Medication 1 applic 12/16/19 09:00 Nystatin TOPICAL 01/15/20 09:01 BID [facility] Potassium Chloride 10 meq 12/16/19 09:00 12/17/19 09:38 Kcl Tablet PO 10 meq DAILY [facility] Administration Prednisone 40 mg 12/16/19 09:00 12/17/19 09:39 Prednisone PO 02/08/20 08:59 40 mg DAILY [facility] Administration Taper Rosuvastatin Calcium 10 mg 12/16/19 09:00 12/17/19 09:39 Crestor PO 10 mg DAILY [facility] Administration Sitagliptin Phosphate 100 mg 12/16/19 09:00 12/17/19 09:39 Januvia PO 100 mg DAILY [facility] Administration Triamcinolone Acetonide 1 applic
[2019-12-17] MEDS: CALCIUM CARBONATE (OSCAL) 500 MG TABLET PO (17:40)
[2019-12-17 17:45] LABS: Glucose Point of Care 191 (65-105)
[2019-12-17 20:35] VITALS: PULSE 72
[2019-12-17 20:44] LABS: Glucose Point of Care 151 (65-105)
[2019-12-17 21:41] VITALS: BP 120/71; PULSE 93; RESP 18; TEMP 35.9; O2SAT 97
[2019-12-18 06:00] VITALS: BP 136/53; PULSE 67; RESP 18; TEMP 36.2; O2SAT 100
[2019-12-18 06:50] LABS: Glucose Point of Care 95 (65-105)
[2019-12-18 08:00] VITALS: PULSE 67; RESP 18; O2SAT 100
[2019-12-18] MEDS: FUROSEMIDE 40 MG TABLET PO (08:49)
[2019-12-18] MEDS: predniSONE 10 MG TABLET 40 MG PO (08:49)
[2019-12-18] MEDS: MAGNESIUM OXIDE 400 MG TABLET PO (08:49)
[2019-12-18] MEDS: CALCIUM CARBONATE (OSCAL) 500 MG TABLET PO ×2 (08:49→17:10)
[2019-12-18] MEDS: CHOLECALCIFEROL 1,000 UNIT TABLET 1000 UNITS PO (08:49)
[2019-12-18] MEDS: THERAPEUTIC MULTIVITAMINS/MINERALS TAB (*BKC) 1 TABLET PO (08:49)
[2019-12-18] MEDS: VITAMIN B COMPLEX CAPSULE 1 CAP PO (08:49)
[2019-12-18 08:50] VITALS: PULSE 67
[2019-12-18] MEDS: ASCORBIC ACID 500 MG TABLET PO (08:50)
[2019-12-18] MEDS: ASPIRIN 81 MG ENTERIC TABLET PO (08:50)
[2019-12-18] MEDS: IRBESARTAN 150 MG TABLET 300 MG PO (08:50)
[2019-12-18] MEDS: POTASSIUM CHLORIDE 10 MEQ TABLET.ER PO (08:50)
[2019-12-18] MEDS: ROSUVASTATIN 10 MG TABLET PO (08:50)
[2019-12-18] MEDS: METOPROLOL TARTRATE 25 MG TABLET PO ×2 (08:50→20:38)
[2019-12-18 14:00] VITALS: BP 122/62; PULSE 78; RESP 20; TEMP 36.6; O2SAT 100
[2019-12-18 16:30] LABS: Glucose Point of Care 152 (65-105)
[2019-12-18 20:38] VITALS: PULSE 78
[2019-12-18 20:42] LABS: Glucose Point of Care 155 (65-105)
[2019-12-18 21:35] VITALS: BP 122/48; PULSE 60; RESP 18; TEMP 36.1; O2SAT 98
[2019-12-19 06:00] VITALS: BP 146/52; PULSE 52; RESP 18; TEMP 35.4; O2SAT 98
[2019-12-19 06:48] LABS: Glucose Point of Care 96 (65-105)
[2019-12-19 07:18] LABS: Potassium 4.3 mmol/L (3.4-5.0)
[2019-12-19 08:00] VITALS: PULSE 58; RESP 18; O2SAT 98
[2019-12-19] MEDS: MAGNESIUM OXIDE 400 MG TABLET PO (08:39)
[2019-12-19] MEDS: VITAMIN B COMPLEX CAPSULE 1 CAP PO (08:39)
[2019-12-19] MEDS: CHOLECALCIFEROL 1,000 UNIT TABLET 1000 UNITS PO (08:39)
[2019-12-19 08:40] VITALS: PULSE 58
[2019-12-19] MEDS: METOPROLOL TARTRATE 25 MG TABLET PO ×2 (08:40→20:48)
[2019-12-19] MEDS: FUROSEMIDE 40 MG TABLET PO (08:40)
[2019-12-19] MEDS: IRBESARTAN 150 MG TABLET 300 MG PO (08:40)
[2019-12-19] MEDS: POTASSIUM CHLORIDE 10 MEQ TABLET.ER PO (08:40)
[2019-12-19] MEDS: predniSONE 10 MG TABLET 40 MG PO (08:40)
[2019-12-19] MEDS: ROSUVASTATIN 10 MG TABLET PO (08:41)
[2019-12-19] MEDS: ASCORBIC ACID 500 MG TABLET PO (08:41)
[2019-12-19] MEDS: THERAPEUTIC MULTIVITAMINS/MINERALS TAB (*BKC) 1 TABLET PO (08:41)
[2019-12-19] MEDS: ASPIRIN 81 MG ENTERIC TABLET PO (08:41)
[2019-12-19] MEDS: CALCIUM CARBONATE (OSCAL) 500 MG TABLET PO ×2 (08:41→17:19)
[2019-12-19 14:00] VITALS: BP 105/59; PULSE 54; RESP 18; TEMP 37; O2SAT 98
[2019-12-19 16:55] LABS: Glucose Point of Care 222 (65-105)
[2019-12-19 20:18] VITALS: BP 107/67; PULSE 64; RESP 18; TEMP 36.5; O2SAT 98
[2019-12-19 20:48] VITALS: PULSE 64
[2019-12-20 06:00] VITALS: BP 145/55; PULSE 75; RESP 20; TEMP 36.5; O2SAT 98
[2019-12-20 06:33] LABS: Glucose Point of Care 88 (65-105)
[2019-12-20] MEDS: POTASSIUM CHLORIDE 10 MEQ TABLET.ER PO (08:54)
[2019-12-20] MEDS: predniSONE 10 MG TABLET 40 MG PO (08:54)
[2019-12-20 08:55] VITALS: PULSE 76; RESP 18; O2SAT 98
[2019-12-20] MEDS: ROSUVASTATIN 10 MG TABLET PO (08:55)
[2019-12-20] MEDS: ASCORBIC ACID 500 MG TABLET PO (08:55)
[2019-12-20] MEDS: CALCIUM CARBONATE (OSCAL) 500 MG TABLET PO ×2 (08:55→18:01)
[2019-12-20] MEDS: ASPIRIN 81 MG ENTERIC TABLET PO (08:55)
[2019-12-20] MEDS: VITAMIN B COMPLEX CAPSULE 1 CAP PO (08:55)
[2019-12-20 08:56] VITALS: PULSE 76
[2019-12-20] MEDS: METOPROLOL TARTRATE 25 MG TABLET PO ×2 (08:56→20:15)
[2019-12-20] MEDS: FUROSEMIDE 40 MG TABLET PO (08:57)
[2019-12-20] MEDS: IRBESARTAN 150 MG TABLET 300 MG PO (08:57)
[2019-12-20] MEDS: THERAPEUTIC MULTIVITAMINS/MINERALS TAB (*BKC) 1 TABLET PO (08:57)
[2019-12-20] MEDS: MAGNESIUM OXIDE 400 MG TABLET PO (08:57)
[2019-12-20] MEDS: CHOLECALCIFEROL 1,000 UNIT TABLET 1000 UNITS PO (08:57)
--- NOTE | 2019-12-20 11:22 | WPDNEURORHBP ---
Subjective Date/time seen: seen on 12/19/19 12 noon and documented on 12/20/19 polymyalgia rheumatica with hearing deficit reviewed and treatment continued as such Review of Systems Review of Systems: All systems reviewed & are unremarkable except as noted in HPI and below Functional Status Ambulation Ability Ability to Ambulate 10 Feet: Standby Assistance Ability to Ambulate 50 Feet With 2 Turns: Standby Assistance Ambulation Assistive Devices: Walker, Wheeled Transfers Ability Ability to Transfer In/Out of Chair: Contact Guard Exam Const: General: cooperative, comfortable, no acute distress, well developed, alert and awake Nutritional Appearance: average body habitus HENMT: Head: normal to inspection and normocephalic General nose exam: Normal external nose present, Normal nares present and No nasal discharge present Face and sinus: normal facial exam Mouth: Yes Normal oral and palatal mucosa present, Yes tongue normal, Yes oropharynx normal, Yes moist mucous membranes and Yes Abnormal oral and palatal mucosa present Eyes: General: appearance normal, both eyes and all related structures Neck: Neck: full ROM Resp: Effort & Inspection: normal respiratory effort and able to speak in complete sentences Cardio: Rate: regular rate Rhythm: regular rhythm GI: Percussion: Yes normal to percussion Auscultation: normal bowel sounds Skin: General skin exam: no rashes or lesions noted Neuro: General: patient oriented x3, moves all extremities and CN's II-XI intact bilaterally Cranial nerves: Yes CN's II-XII intact bilaterally, Yes Equal, round and reactive pupils present, Yes Bilaterally intact EOM present, Yes Nystagmus not present, Yes facial symmetry, Yes Midline tongue present, Yes hard of hearing, Yes Ability to bilaterally rotate head present and Yes Altered sense of smell present Cognition (Neuro): abnormal cognition Speech: normal speech Motor exam (neuro): Abnormal motor strength present Sensory Exam: normal sensation Plantar Reflex Responses: downgoing: bilateral Extrem: General: normal to inspection and normal exam except as noted Psych: Appearance: grossly normal Mental Status: other (memory decreased) Speech and movement: Normal speech and movement present Affect: normal affect Attitude: cooperative Thought process: Normal thought process present Thought content: Yes Normal thought content present Insight: Fair insight present (Psych) Judgement: Fair judgement present (Psych) Objective Data Vital Signs Vital Signs: Vital Signs - 24 hr 12/19/19 14:00 12/19/19 20:18 12/19/19 20:48 Temperature 37.0 C 36.5 C Pulse Rate 54 L 64 64 Respiratory Rate 18 18 Blood Pressure 105/59 L 107/67 Pulse Oximetry 98 98 12/20/19 06:00 12/20/19 08:56 Temperature 36.5 C Pulse Rate 75 76 Respiratory Rate 20 Blood Pressure 145/55 H Pulse Oximetry 98 Intake/Output Intake/Output: Intake & Output 12/17/19 12/18/19 12/19/19 12/20/19 23:59 23:59 23:59 23:59 Intake Total 480 1440 1200 240 Balance 480 1440 1200 240 Meds/Results Medications: Active Medications Generic Name Dose Route Start Last Admin Trade Name Freq PRN Reason Stop Dose Admin Ascorbic Acid 500 mg 12/16/19 09:00 12/20/19 08:55 Vitamin C PO 500 mg DAILY [facility] Administration Aspirin 81 mg 12/16/19 09:00 12/20/19 08:55 Aspirin Ec PO 81 mg DAILY [facility] Administration Calcium Carbonate 500 mg 12/17/19 17:00 12/20/19 08:55 Oscal 500 Mg PO 500 mg BIDWM [facility] Administration Furosemide 40 mg 12/16/19 09:00 12/20/19 08:57 Lasix Tablet PO 40 mg QAM [facility] Administration Irbesartan 300 mg 12/16/19 09:00 12/20/19 08:57 Avapro PO 300 mg DAILY [facility] Administration Magnesium Oxide 400 mg 12/16/19 09:00 12/20/19 08:57 Mag-Ox PO 400 mg DAILY [facility] Administration Metoprolol Tartrate 25 mg 12/15/19 21:00 12/20/19 08:56 Lopressor PO 25 mg Q12HR [facility] Administration Multivitamins/Ca
[2019-12-20 11:51] LABS: Glucose Point of Care 130 (65-105)
[2019-12-20 14:00] VITALS: BP 123/58; PULSE 95; RESP 20; TEMP 36.7; O2SAT 96
[2019-12-20 17:04] LABS: Glucose Point of Care 140 (65-105)
[2019-12-20 20:15] VITALS: PULSE 72
[2019-12-20 20:42] LABS: Glucose Point of Care 168 (65-105)
[2019-12-20 21:43] VITALS: BP 110/66; PULSE 54; RESP 18; TEMP 35.9; O2SAT 96
[2019-12-21 05:54] LABS: Potassium 3.7 mmol/L (3.4-5.0)
[2019-12-21 06:00] VITALS: BP 144/48; PULSE 53; RESP 18; TEMP 35.6; O2SAT 100
[2019-12-21 06:45] LABS: Glucose Point of Care 91 (65-105)
[2019-12-21] MEDS: MAGNESIUM OXIDE 400 MG TABLET PO (10:04)
[2019-12-21] MEDS: FUROSEMIDE 40 MG TABLET PO (10:05)
[2019-12-21] MEDS: POTASSIUM CHLORIDE 10 MEQ TABLET.ER PO (10:05)
[2019-12-21] MEDS: THERAPEUTIC MULTIVITAMINS/MINERALS TAB (*BKC) 1 TABLET PO (10:05)
[2019-12-21 10:06] VITALS: PULSE 53
[2019-12-21] MEDS: IRBESARTAN 150 MG TABLET 300 MG PO (10:06)
[2019-12-21] MEDS: METOPROLOL TARTRATE 25 MG TABLET PO ×2 (10:06→20:11)
[2019-12-21] MEDS: ASPIRIN 81 MG ENTERIC TABLET PO (10:06)
[2019-12-21] MEDS: predniSONE 10 MG TABLET 40 MG PO (10:06)
[2019-12-21] MEDS: CHOLECALCIFEROL 1,000 UNIT TABLET 1000 UNITS PO (10:07)
[2019-12-21] MEDS: ASCORBIC ACID 500 MG TABLET PO (10:07)
[2019-12-21] MEDS: ROSUVASTATIN 10 MG TABLET PO (10:08)
[2019-12-21] MEDS: VITAMIN B COMPLEX CAPSULE 1 CAP PO (10:08)
[2019-12-21 11:26] LABS: Add Urine Microscopic? YES; Appearance Urine Turbid (Clear); Bilirubin Urine Negative (Negative); Blood Urine 2+ (Negative); Color Urine Yellow (Yellow); Glucose Urine UA Negative (Negative); Ketones Urine Negative (Negative); Leukocyte Esterase Ur 3+ LEU/UL (Negative); Nitrate Urine Negative (Negative); Protein Urine 2+ mg/dL (Negative); RBC Urine >75 /hpf (0-2); Specific Grav Ur 1.017 (1.001-1.035); Urobilinogen Urine Negative mg/dL (<2.0); WBC Clumps Urine Present /HPF; WBC Urine >75 /hpf
--- NOTE | 2019-12-21 12:20 | WPDNEURORHBP ---
Subjective Date/time seen: 12/21/19 12:20 Interval history: this 84-year-old woman with mild cognitive deficit is here because of debility/ reoccurrence of polymyalgia rheumatica for which she is on prednisone therapy. The patient denies any headache nausea vomiting chest pain shortness of breath fever chills sore throat Review of Systems Review of Systems: All systems reviewed & are unremarkable except as noted in HPI and below Functional Status Ambulation Ability Ability to Ambulate 10 Feet: Independent Ability to Ambulate 50 Feet With 2 Turns: Independent Ability to Ambulate 150 Feet: Contact Guard Ambulation Assistive Devices: Walker, Wheeled Transfers Ability Ability to Transfer In/Out of Chair: Contact Guard Exam Const: General: comfortable and no acute distress HENMT: General nose exam: Normal nares present Mouth: Yes moist mucous membranes Eyes: General: appearance normal, both eyes and all related structures Neck: Neck: supple and no JVD Resp: Effort & Inspection: normal respiratory effort Auscultation: clear to auscultation bilaterally Cardio: Rate: regular rate Rhythm: regular rhythm GI: GI Palp: Yes Soft to palpation Auscultation: normal bowel sounds Skin: General skin exam: normal color and no rashes or lesions noted Neuro: Other: the patient is awake and alert with mild short-term memory deficit her strength on her ability to the activities of daily living is improving and she is making progress Extrem: Other: multiple areas of tender spots including the head and shoulder arms in the legs with the arthritic changes in the hands and multiple joints Psych: Mental Status: mental status grossly normal Other: [id number] cognitive deficit Objective Data Vital Signs Vital Signs: Vital Signs - 24 hr 12/20/19 14:00 12/20/19 20:15 12/20/19 21:43 Temperature 36.7 C 35.9 C L Pulse Rate 95 72 54 L Respiratory Rate 20 18 Blood Pressure 123/58 L 110/66 Pulse Oximetry 96 96 12/21/19 06:00 12/21/19 10:06 Temperature 35.6 C L Pulse Rate 53 L 53 L Respiratory Rate 18 Blood Pressure 144/48 H Pulse Oximetry 100 Intake/Output Intake/Output: Intake & Output 12/18/19 12/19/19 12/20/19 12/21/19 23:59 23:59 23:59 23:59 Intake Total 1440 1200 720 240 Balance 1440 1200 720 240 Meds/Results Medications: Active Medications Generic Name Dose Route Start Last Admin Trade Name Fareed PRN Reason Stop Dose Admin Ascorbic Acid 500 mg 12/16/19 09:00 12/21/19 10:07 Vitamin C PO 500 mg DAILY [facility] Administration Aspirin 81 mg 12/16/19 09:00 12/21/19 10:06 Aspirin Ec PO 81 mg DAILY [facility] Administration Calcium Carbonate 500 mg 12/17/19 17:00 12/20/19 18:01 Oscal 500 Mg PO 500 mg BIDWM [facility] Administration Furosemide 40 mg 12/16/19 09:00 12/21/19 10:05 Lasix Tablet PO 40 mg QAM [facility] Administration Irbesartan 300 mg 12/16/19 09:00 12/21/19 10:06 Avapro PO 300 mg DAILY [facility] Administration Magnesium Oxide 400 mg 12/16/19 09:00 12/21/19 10:04 Mag-Ox PO 400 mg DAILY [facility] Administration Metoprolol Tartrate 25 mg 12/15/19 21:00 12/21/19 10:06 Lopressor PO 25 mg Q12HR [facility] Administration Multivitamins/Calcium 1 tablet 12/16/19 09:00 12/21/19 10:05 Therapeutic Multivitamins/Minerals PO 1 tablet DAILY [facility] Administration Non-Formulary Medication 1 applic 12/16/19 09:00 Nystatin TOPICAL 01/15/20 09:01 BID [facility] Potassium Chloride 10 meq 12/16/19 09:00 12/21/19 10:05 Kcl Tablet PO 10 meq DAILY [facility] Administration Prednisone 40 mg 12/16/19 09:00 12/21/19 10:06 Prednisone PO 02/08/20 08:59 40 mg DAILY [facility] Administration Taper Rosuvastatin Calcium 10 mg 12/16/19 09:00 12/21/19 10:08 Crestor PO 10 mg DAILY [facility] Administration Sitagliptin Phosphate 100 mg 12/16/19 09:00 12/21/19 10:07 Januvia PO 100 mg DAILY [facility] Administration Triamcinolone Acetonide
[2019-12-21 12:39] LABS: Glucose Point of Care 164 (65-105)
--- NOTE | 2019-12-21 13:48 | PCNFU ---
Nutrition Follow-Up Complete: Obesity related to hx excessive energy intake as evidenced by BMI of 30.4. Goal: Patient to consume 75% of meals or greater. Patient has met goal at 100% meal consumption. Pt current nutrition is Diabetic Consistent Carbohydrate. Nutrition recommendation: Agree with current recommendations Last recorded weight is 80.4 kg. Bowel Motility: last bowel movement reported on 12/18/19 Labs Reviewed: No updated labs. Recommend obtaining new labs. Meds Noted: Vitamin C, Lasix, Mag-Ox, MVI, KCl, Prednisone, Januvia, Vitamin B Complex, lopressor, multivitamin. vitamin D, crestor Additional Notes: Patient states appetite is good. Patient did not report any diet related concerns/questions at this time. Follow up every 7 days.
[2019-12-21 14:00] VITALS: BP 136/76; PULSE 93; RESP 20; TEMP 36; O2SAT 96
--- NOTE | 2019-12-21 14:04 | PCNSR ---
On 12/21/19, the student,Charli Kim, provided care and completed [facility] documentation on this patient. I have reviewed the student's documentation and agree with the findings.
[2019-12-21 17:07] LABS: Glucose Point of Care 212 (65-105)
[2019-12-21] MEDS: CALCIUM CARBONATE (OSCAL) 500 MG TABLET PO (17:21)
[2019-12-21 20:11] VITALS: PULSE 76
[2019-12-21 20:27] LABS: Glucose Point of Care 144 (65-105)
[2019-12-21 20:32] VITALS: BP 118/51; PULSE 67; RESP 18; TEMP 36.5; O2SAT 97
[2019-12-22 05:44] VITALS: BP 128/56; PULSE 51; RESP 20; TEMP 36; O2SAT 98
[2019-12-22 06:51] LABS: Glucose Point of Care 93 (65-105)
[2019-12-22] MEDS: CALCIUM CARBONATE (OSCAL) 500 MG TABLET PO ×2 (07:47→17:28)
[2019-12-22] MEDS: ASCORBIC ACID 500 MG TABLET PO (09:07)
[2019-12-22] MEDS: ASPIRIN 81 MG ENTERIC TABLET PO (09:07)
[2019-12-22] MEDS: CHOLECALCIFEROL 1,000 UNIT TABLET 1000 UNITS PO (09:08)
[2019-12-22] MEDS: VITAMIN B COMPLEX CAPSULE 1 CAP PO (09:08)
[2019-12-22] MEDS: FUROSEMIDE 40 MG TABLET PO (09:08)
[2019-12-22] MEDS: predniSONE 10 MG TABLET 40 MG PO (09:09)
[2019-12-22] MEDS: ROSUVASTATIN 10 MG TABLET PO (09:09)
[2019-12-22 09:10] VITALS: PULSE 51
[2019-12-22] MEDS: METOPROLOL TARTRATE 25 MG TABLET PO ×2 (09:10→20:45)
[2019-12-22] MEDS: POTASSIUM CHLORIDE 10 MEQ TABLET.ER PO (09:10)
[2019-12-22] MEDS: MAGNESIUM OXIDE 400 MG TABLET PO (09:10)
[2019-12-22] MEDS: THERAPEUTIC MULTIVITAMINS/MINERALS TAB (*BKC) 1 TABLET PO (09:10)
[2019-12-22] MEDS: IRBESARTAN 150 MG TABLET 300 MG PO (09:48)
[2019-12-22 12:08] LABS: Glucose Point of Care 144 (65-105)
[2019-12-22 14:00] VITALS: BP 119/55; PULSE 66; RESP 16; TEMP 36.4; O2SAT 100
--- NOTE | 2019-12-22 16:56 | WPDNEURORHBP ---
Subjective Date/time seen: 12/22/19 16:56 Interval history: this 84-year-old woman is here due to polymyalgia rheumatica and is on prednisone and doing fairly well she does have a mild short-term memory deficit her last CRP was over 7 and I will repeated to see with the effect of higher dose prednisone has done to it she does have some aches and pains which is now her concentrated on the lower extremities and around the pelvic area otherwise denies any headache nausea vomiting chest pain shortness of breath fever chills sore throat Review of Systems Review of Systems: All systems reviewed & are unremarkable except as noted in HPI and below Functional Status Ambulation Ability Ability to Ambulate 10 Feet: Independent Ability to Ambulate 50 Feet With 2 Turns: Independent Ability to Ambulate 150 Feet: Independent Ambulation Assistive Devices: Walker, Wheeled Transfers Ability Ability to Transfer In/Out of Chair: Independent Exam Const: General: comfortable and no acute distress HENMT: General nose exam: Normal nares present Mouth: Yes moist mucous membranes Eyes: General: appearance normal, both eyes and all related structures Neck: Neck: supple and no JVD Resp: Effort & Inspection: normal respiratory effort Auscultation: clear to auscultation bilaterally Cardio: Rate: regular rate Rhythm: regular rhythm GI: GI Palp: Yes Soft to palpation Auscultation: normal bowel sounds Skin: General skin exam: normal color and no rashes or lesions noted Neuro: Other: patient is awake and alert with mild short-term memory deficit in without any lateralizing weakness her tender spots in the upper torso as definitely much better she does have a tender spots around the pelvic area and the lower extremities Extrem: General: normal to inspection Other: arthritic changes are noted in multiple joints Psych: Other: mild short-term memory deficit Objective Data Vital Signs Vital Signs: Vital Signs - 24 hr 12/21/19 20:11 12/21/19 20:32 12/22/19 05:44 Temperature 36.5 C 36.0 C L Pulse Rate 76 67 51 L Respiratory Rate 18 20 Blood Pressure 118/51 L 128/56 L Pulse Oximetry 97 98 12/22/19 09:10 12/22/19 14:00 Temperature 36.4 C Pulse Rate 51 L 66 Respiratory Rate 16 Blood Pressure 119/55 L Pulse Oximetry 100 Intake/Output Intake/Output: Intake & Output 08/0212/20/19 12/21/19 12/22/19 23:59 23:59 23:59 23:59 Intake Total 1200 720 480 440 Balance 1200 720 480 440 Meds/Results Medications: Active Medications Generic Name Dose Route Start Last Admin Trade Name Fareed PRN Reason Stop Dose Admin Ascorbic Acid 500 mg 12/16/19 09:00 12/22/19 09:07 Vitamin C PO 500 mg DAILY [facility] Administration Aspirin 81 mg 12/16/19 09:00 12/22/19 09:07 Aspirin Ec PO 81 mg DAILY [facility] Administration Calcium Carbonate 500 mg 12/17/19 17:00 12/22/19 07:47 Oscal 500 Mg PO 500 mg BIDWM [facility] Administration Furosemide 40 mg 12/16/19 09:00 12/22/19 09:08 Lasix Tablet PO 40 mg QAM [facility] Administration Irbesartan 300 mg 12/16/19 09:00 12/22/19 09:48 Avapro PO 300 mg DAILY [facility] Administration Levofloxacin 500 mg 12/21/19 09:00 12/22/19 09:10 Levaquin Tab PO 12/27/19 09:01 500 mg DAILY [facility] Administration Magnesium Oxide 400 mg 12/16/19 09:00 12/22/19 09:10 Mag-Ox PO 400 mg DAILY [facility] Administration Metoprolol Tartrate 25 mg 12/15/19 21:00 12/22/19 09:10 Lopressor PO 25 mg Q12HR [facility] Administration Multivitamins/Calcium 1 tablet 12/16/19 09:00 12/22/19 09:10 Therapeutic Multivitamins/Minerals PO 1 tablet DAILY [facility] Administration Non-Formulary Medication 1 applic 12/16/19 09:00 Nystatin TOPICAL 01/15/20 09:01 BID [facility] Potassium Chloride 10 meq 12/16/19 09:00 12/22/19 09:10 Kcl Tablet PO 10 meq DAILY [facility] Administration Prednisone 40 mg 12/16/19 09:00 12/22/19 09:09 Prednisone PO 02/08/20 08:59 40 mg
[2019-12-22 17:20] LABS: Glucose Point of Care 177 (65-105)
[2019-12-22 18:17] LABS: CRP 2.8 mg/dL (<1.0)
[2019-12-22 20:24] LABS: Glucose Point of Care 222 (65-105)
[2019-12-22 20:45] VITALS: PULSE 66
[2019-12-22 21:48] VITALS: BP 117/63; PULSE 59; RESP 18; TEMP 36.2; O2SAT 96
[2019-12-23 04:52] LABS: Basophils Percent Auto 0.2 % (0.2-1.2); Eosinophils Absolute Auto 0.1 K/mm3 (0-0.3); Eosinophils Percent Auto 0.4 % (0-4.4); Hematocrit 39.2 % (37.0-47.0); Hemoglobin 12.7 g/dL (12.0-15.0); Immature Granulocyte Absolute 0.17 K/mm3 (0.00-0.031); Immature Granulocyte Percent A 1.2 % (0-0.5); Lymphocytes Absolute Auto 1.43 K/mm3 (0.9-3.2); Lymphocytes Percent Auto 10.4 % (18.3-44.2); Mean Corpuscular HGB Conc 32.4 g/dl (32-36); Mean Corpuscular Volume 95.6 fl (80-100); Mean Platelet Volume 11.8 fl (7.4-10.4); Monocytes Absolute Auto 1.5 K/mm3 (0.1-0.6); Monocytes Percent Auto 11.1 % (2.6-8.5); Neutrophils Absolute Auto 10.6 K/mm3 (1.3-6.7); Neutrophils Percent Auto 76.7 % (45.5-73.1); Platelet Count Result 159 k/mm3 (150-375); Red Cell Distribution Width 15.1 % (11.5-14.5); White Blood Count 13.8 K/mm3 (4.5-10.0)
[2019-12-23 05:30] LABS: Anion Gap 8.9 mmol/L (7-16); Blood Urea Nitrogen 42 mg/dL (7-17); Calcium 9.6 mg/dL (8.4-10.2); Carbon Dioxide 29 mmol/L (22-30); Chloride 102 mmol/L (98-107); Estimated CRCL calculation 27 ml/min; Estimated Glomerular Filt Rate 36; Glucose 109 mg/dL (65-105); Potassium 3.9 mmol/L (3.4-5.0); Sodium 136 mmol/L (137-145)
[2019-12-23 06:00] VITALS: BP 134/57; PULSE 57; RESP 18; TEMP 35.8; O2SAT 96
[2019-12-23 06:31] LABS: Glucose Point of Care 94 (65-105)
[2019-12-23] MEDS: MAGNESIUM OXIDE 400 MG TABLET PO (08:49)
[2019-12-23] MEDS: ROSUVASTATIN 10 MG TABLET PO (08:49)
[2019-12-23] MEDS: predniSONE 10 MG TABLET 40 MG PO (08:49)
[2019-12-23] MEDS: POTASSIUM CHLORIDE 10 MEQ TABLET.ER PO (08:49)
[2019-12-23] MEDS: IRBESARTAN 150 MG TABLET 300 MG PO (08:49)
[2019-12-23] MEDS: VITAMIN B COMPLEX CAPSULE 1 CAP PO (08:49)
[2019-12-23] MEDS: ASCORBIC ACID 500 MG TABLET PO (08:49)
[2019-12-23 08:50] VITALS: PULSE 57
[2019-12-23] MEDS: CALCIUM CARBONATE (OSCAL) 500 MG TABLET PO ×2 (08:50→17:41)
[2019-12-23] MEDS: CHOLECALCIFEROL 1,000 UNIT TABLET 1000 UNITS PO (08:50)
[2019-12-23] MEDS: ASPIRIN 81 MG ENTERIC TABLET PO (08:50)
[2019-12-23] MEDS: METOPROLOL TARTRATE 25 MG TABLET PO ×2 (08:50→20:47)
[2019-12-23] MEDS: THERAPEUTIC MULTIVITAMINS/MINERALS TAB (*BKC) 1 TABLET PO (08:52)
[2019-12-23] MEDS: FUROSEMIDE 40 MG TABLET PO (08:52)
[2019-12-23 14:00] VITALS: BP 131/55; PULSE 68; RESP 18; TEMP 36.3; O2SAT 98
[2019-12-23 18:03] LABS: Glucose Point of Care 178 (65-105)
[2019-12-23 20:47] VITALS: PULSE 76
[2019-12-23 22:00] VITALS: BP 129/69; PULSE 71; RESP 20; TEMP 36.6; O2SAT 99
[2019-12-24 06:00] VITALS: BP 146/58; PULSE 65; RESP 18; TEMP 36.2; O2SAT 97
[2019-12-24 06:57] LABS: Glucose Point of Care 96 (65-105)
[2019-12-24] MEDS: CALCIUM CARBONATE (OSCAL) 500 MG TABLET PO (08:36)
[2019-12-24] MEDS: FUROSEMIDE 40 MG TABLET PO (08:37)
[2019-12-24] MEDS: ASPIRIN 81 MG ENTERIC TABLET PO (08:37)
[2019-12-24] MEDS: CHOLECALCIFEROL 1,000 UNIT TABLET 1000 UNITS PO (08:37)
[2019-12-24] MEDS: ASCORBIC ACID 500 MG TABLET PO (08:37)
[2019-12-24] MEDS: IRBESARTAN 150 MG TABLET 300 MG PO (08:37)
[2019-12-24 08:38] VITALS: PULSE 68
[2019-12-24] MEDS: POTASSIUM CHLORIDE 10 MEQ TABLET.ER PO (08:38)
[2019-12-24] MEDS: MAGNESIUM OXIDE 400 MG TABLET PO (08:38)
[2019-12-24] MEDS: VITAMIN B COMPLEX CAPSULE 1 CAP PO (08:38)
[2019-12-24] MEDS: THERAPEUTIC MULTIVITAMINS/MINERALS TAB (*BKC) 1 TABLET PO (08:38)
[2019-12-24] MEDS: predniSONE 10 MG TABLET 40 MG PO (08:38)
[2019-12-24] MEDS: ROSUVASTATIN 10 MG TABLET PO (08:38)
[2019-12-24] MEDS: METOPROLOL TARTRATE 25 MG TABLET PO (08:38)
--- NOTE | 2019-12-24 11:03 | WPDNEURORHBP ---
Subjective Date/time seen: 12/24/19 11:03 Interval history: This 84-year-old low woman has completed the rehab process and is ready to be discharged today she denies any headache nausea vomiting chest pain shortness of breath her strength has improved and she is being treated for polymyalgia rheumatica with the tapering dosages of the prednisone medications were reviewed instructions were giving and the patient will follow-up with the primary care physician and the other physicians involved with her c Review of Systems Review of Systems: All systems reviewed & are unremarkable except as noted in HPI and below Functional Status Ambulation Ability Ability to Ambulate 10 Feet: Independent Ability to Ambulate 50 Feet With 2 Turns: Independent Ability to Ambulate 150 Feet: Independent Ambulation Assistive Devices: Walker, Wheeled Transfers Ability Ability to Transfer In/Out of Chair: Independent Exam Const: General: comfortable and no acute distress HENMT: General nose exam: Normal nares present Mouth: Yes moist mucous membranes Eyes: General: appearance normal, both eyes and all related structures Neck: Neck: supple and no JVD Resp: Effort & Inspection: normal respiratory effort Auscultation: clear to auscultation bilaterally Cardio: Rate: regular rate Rhythm: regular rhythm GI: GI Palp: Yes Soft to palpation Auscultation: normal bowel sounds Skin: General skin exam: normal color and no rashes or lesions noted Neuro: Other: patient is awake and alert well oriented does have a mild short-term memory deficit along on with the weakness which has significantly improved Extrem: Other: arthritic changes and the tender spots the tender spots around her lower torso are better also Psych: Mental Status: mental status grossly normal Other: [id number] memory deficit Objective Data Vital Signs Vital Signs: Vital Signs - 24 hr 12/23/19 14:00 12/23/19 20:47 12/23/19 22:00 Temperature 36.3 C L 36.6 C Pulse Rate 68 76 71 Respiratory Rate 18 20 Blood Pressure 131/55 L 129/69 Pulse Oximetry 98 99 12/24/19 06:00 12/24/19 08:38 Temperature 36.2 C L Pulse Rate 65 68 Respiratory Rate 18 Blood Pressure 146/58 H Pulse Oximetry 97 Intake/Output Intake/Output: Intake & Output 12/21/19 12/22/19 12/23/19 12/24/19 23:59 23:59 23:59 23:59 Intake Total 480 440 720 120 Balance 480 440 720 120 Meds/Results Medications: Active Medications Generic Name Dose Route Start Last Admin Trade Name Fareed CABALLERON Reason Stop Dose Admin Ascorbic Acid 500 mg 12/16/19 09:00 12/24/19 08:37 Vitamin C PO 500 mg DAILY [facility] Administration Aspirin 81 mg 12/16/19 09:00 12/24/19 08:37 Aspirin Ec PO 81 mg DAILY [facility] Administration Calcium Carbonate 500 mg 12/17/19 17:00 12/24/19 08:36 Oscal 500 Mg PO 500 mg BIDWM [facility] Administration Furosemide 40 mg 12/16/19 09:00 12/24/19 08:37 Lasix Tablet PO 40 mg QAM [facility] Administration Irbesartan 300 mg 12/16/19 09:00 12/24/19 08:37 Avapro PO 300 mg DAILY [facility] Administration Levofloxacin 500 mg 12/21/19 09:00 12/24/19 08:38 Levaquin Tab PO 12/27/19 09:01 500 mg DAILY [facility] Administration Magnesium Oxide 400 mg 12/16/19 09:00 12/24/19 08:38 Mag-Ox PO 400 mg DAILY [facility] Administration Metoprolol Tartrate 25 mg 12/15/19 21:00 12/24/19 08:38 Lopressor PO 25 mg Q12HR [facility] Administration Multivitamins/Calcium 1 tablet 12/16/19 09:00 12/24/19 08:38 Therapeutic Multivitamins/Minerals PO 1 tablet DAILY [facility] Administration Non-Formulary Medication 1 applic 12/16/19 09:00 Nystatin TOPICAL 01/15/20 09:01 BID [facility] Potassium Chloride 10 meq 12/16/19 09:00 12/24/19 08:38 Kcl Tablet PO 10 meq DAILY [facility] Administration Prednisone 40 mg 12/16/19 09:00 12/24/19 08:38 Prednisone PO 02/08/20 08:59 40 mg DAILY [facility] Administration Taper Rosuvastatin Calcium 10 mg
--- NOTE | 2019-12-29 14:08 | PM.DS ---
DS: Admitting Diagnosis Admitting Diagnosis Admitting Diagnosis: Polymyalgia rheumatica DS: Discharge Diagnosis Discharge Diagnosis (1) Hip pain, right: Code(s): M25.551 - Pain in right hip Status: Acute (2) Thrush: Code(s): B37.0 - Candidal stomatitis Status: Acute (3) BMI 28.0-28.9,adult: Code(s): Z68.28 - Body mass index (BMI) 28.0-28.9, adult Status: Acute (4) Hospital discharge follow-up: Code(s): Z09 - Encounter for follow-up examination after completed treatment for conditions other than malignant neoplasm Status: Acute (5) UTI (urinary tract infection): Code(s): N39.0 - Urinary tract infection, site not specified Status: Acute (6) Leukocytosis: Code(s): D72.829 - Elevated white blood cell count, unspecified Status: Resolved (7) Chronic kidney disease, stage 3: Code(s): N18.3 - Chronic kidney disease, stage 3 (moderate) Status: Chronic (8) Generalized weakness: Code(s): R53.1 - Weakness Status: Acute (9) Polymyalgia rheumatica: Code(s): M35.3 - Polymyalgia rheumatica Status: Acute (10) Type 2 diabetes mellitus: Code(s): E11.9 - Type 2 diabetes mellitus without complications Status: Acute (11) Diastolic dysfunction: Code(s): I51.89 - Other ill-defined heart diseases Status: Acute (12) DJD (degenerative joint disease), multiple sites: Qualifiers: Osteoarthritis type: unspecified Qualified Code(s): M15.9 - Polyosteoarthritis, unspecified Code(s): M15.9 - Polyosteoarthritis, unspecified Status: Acute (13) Valvular heart disease: Code(s): I38 - Endocarditis, valve unspecified Status: Acute DS: Summary Hospital Course Reason for hospitalization: This 84-year-old woman with underlying cognitive dysfunction was admitted due to significant weakness related to polymyalgia rheumatica along with the other medical issues mentioned in the above mentioned problems she received extensive therapy along with the medical management PT OT and gait training and was able to achieve the following independent measures Hospital Course: eating independent, oral hygiene independent, toileting independent, bathing setup, upper body dressing setup, lower body dressing setup, footwear independent, rolling in bed independent, sitting and lying independent, lying to sitting independent, sit to stand independent, chair transfers independent, toilet transfers independent, car transfers independent, walking 10 feet independent, walking 50 feet for 2 turns independent, walking 150 feet independent, walking 10 feet uneven surfaces independent, carbon are set up independent, 4 steps independent, 12 steps independent, picking up objects independent, wheelchair 50 feet independent, wheelchair 150 feet independent. The patient was discharged home with home health to follow no falls were recorded Time Spent with Patient Time attestation: Total time spent providing and/or coordinating discharge services: Exam Const: General: comfortable and no acute distress HENMT: General nose exam: Normal nares present Mouth: Yes dry mucous membranes Eyes: General: appearance normal, both eyes and all related structures Neck: Neck: supple and no JVD Resp: Effort & Inspection: normal respiratory effort Auscultation: clear to auscultation bilaterally Cardio: Rate: regular rate Rhythm: regular rhythm GI: GI Palp: Yes Soft to palpation Auscultation: normal bowel sounds Skin: General skin exam: normal color and no rashes or lesions noted Neuro: Other: patient is awake and alert well oriented however has short-term memory deficit overall weakness related to polymyalgia rheumatica significantly improved and she was able to achieve the independent measures as mentioned above Extrem: Other: evidence of arthritic changes in multiple joints along with some tender spots which had significan
== END 2019-12-24 12:45 | disposition home health service (06) | DRG 546 ==
PROVIDERS: Admitting Provider Psychiatry & Neurology Neurology; PCP Internal Medicine; Visit Provider Psychiatry & Neurology Neurology
DX: M35.3 Polymyalgia rheumatica (principal); E87.1 Hypo-osmolality and hyponatremia; I38 Endocarditis, valve unspecified; R53.1 Weakness; R60.0 Localized edema; D72.829 Elevated white blood cell count, unspecified; D63.1 Anemia in chronic kidney disease; E78.5 Hyperlipidemia, unspecified; E11.22 Type 2 diabetes mellitus with diabetic chronic kidney disease; H91.90 Unspecified hearing loss, unspecified ear; I12.9 Hypertensive chronic kidney disease with stage 1 through stage 4 chronic kidney disease, or unspecified chronic kidney disease; I48.91 Unspecified atrial fibrillation; I51.89 Other ill-defined heart diseases; M15.9 Polyosteoarthritis, unspecified; N18.3 Chronic kidney disease, stage 3 (moderate); R41.3 Other amnesia; Z79.4 Long term (current) use of insulin
CPT/HCPCS: 36415; 51701; 71045; 73521; 80048; 80053; 81001; 82550; 84132; 84443; 85025; 85652; 86140; 87077; 87086; 87088; 87186; 92507; 92523; 97110; 97116; 97129; 97130; 97161; 97162; 97165; 97166; 97530; 97535; 97542; 99285; A9270; G0378; J7040; J7512

== ENCOUNTER 2020-01-21 09:50 | Outpatient (CLI) | payer MEDICARE, SELFPAY ==
--- NOTE | ~2020-01-21 | US_ITS ---
EXAMINATION: US venous doppler LE RT DATE: 01/21/2020 10:39 INDICATION: Right lower limb edema. TECHNIQUE: Grayscale ultrasound images without and with compression and Doppler ultrasound images of the right lower extremity veins were obtained. COMPARISON: Ultrasound 06/03/2018 FINDINGS: There is thrombus in right common femoral vein, femoral vein, profunda femoral vein, popliteal vein, gastrocnemius veins, and posterior tibial and peroneal veins. IMPRESSION: 1. Extensive acute deep vein thrombosis in right lower limb. I discussed this result with Dr. Galvan . Reviewed, dictated and finalized at location A. IMPRESSION: 1. Extensive acute deep vein thrombosis in right lower limb. I discussed this result with Dr. Galvan.
[2020-01-21 11:17] LABS: Basophils Percent Auto 0.2 % (0.2-1.2); Hematocrit 37.6 % (37.0-47.0); Hemoglobin 12.1 g/dL (12.0-15.0); Immature Granulocyte Absolute 0.24 K/mm3 (0.00-0.031); Immature Granulocyte Percent A 1.8 % (0-0.5); Lymphocytes Absolute Auto 0.43 K/mm3 (0.9-3.2); Lymphocytes Percent Auto 3.2 % (18.3-44.2); Mean Corpuscular HGB Conc 32.2 g/dl (32-36); Mean Corpuscular Hemoglobin 31.9 pg (26-34); Mean Corpuscular Volume 99.2 fl (80-100); Mean Platelet Volume 11.8 fl (7.4-10.4); Monocytes Absolute Auto 0.7 K/mm3 (0.1-0.6); Monocytes Percent Auto 5.4 % (2.6-8.5); Neutrophils Percent Auto 89.4 % (45.5-73.1); Platelet Count Result 113 k/mm3 (150-375); Red Blood Count 3.79 M/mm3 (4.2-5.4); Red Cell Distribution Width 15.5 % (11.5-14.5); White Blood Count 13.4 K/mm3 (4.5-10.0)
[2020-01-21 11:25] LABS: INR 1.2; Prothrombin Time 15.3 Seconds (11.1-14.7)
[2020-01-21 11:26] LABS: Partial Thromboplastin Time 23.6 SECONDS (22.3-36.8)
[2020-01-21 11:28] LABS: Anion Gap 8 mmol/L (8-16); Blood Urea Nitrogen 36 mg/dL (7-17); Calcium 9.6 mg/dL (8.4-10.2); Carbon Dioxide 22 mmol/L (22-30); Chloride 104 mmol/L (98-107); Estimated Glomerular Filt Rate 24; Glucose 133 mg/dL (65-105); Sodium 134 mmol/L (137-145)
== END 2020-01-21 09:51 | disposition home or self-care (01) ==
PROVIDERS: PCP Internal Medicine; Visit Provider Internal Medicine
DX: M79.604 Pain in right leg (principal); R60.0 Localized edema; Z79.899 Other long term (current) drug therapy
CPT/HCPCS: 36415; 80048; 85025; 85055; 85610; 85730; 93971

== ENCOUNTER 2020-01-21 11:03 | Observation (INO) | payer MEDICARE, SELFPAY ==
[2020-01-21] VITALS (10 sets, daily range): BP systolic 98–139; BP diastolic 59–87; PULSE 3–100; RESP 10–20; TEMP 36.2–36.8; O2SAT 98–100; BMI 28.0
--- NOTE | ~2020-01-21 | CT_ITS ---
EXAMINATION: CT facial bones wo con DATE: 01/21/2020 11:55 INDICATION: Right facial pain after trauma TECHNIQUE: Computed tomography (CT) of the facial bones and maxillofacial region was performed withou t intravenous contrast. The dose-length product (DLP) was 605.33 mGy-cm. Automated exposure control a nd iterative reconstruction technique were employed. COMPARISON: None. FINDINGS: There is right periorbital soft tissue swelling. No facial bone fracture is identified. The facial soft tissues are otherwise unremarkable. The globes are intact. Severe cervical spondylosis i s noted. IMPRESSION: 1. Right periorbital soft tissue swelling without acute osseous abnormality. Reviewed, dictated and finalized at location A.
--- NOTE | ~2020-01-21 | CT_ITS ---
EXAMINATION: CT brain wo con INDICATION: Head injury COMPARISON: 05/19/2018 TECHNIQUE: Standard unenhanced head CT. The dose-length product (DLP) was 605.33 mGy-cm. The mA was a djusted according to patient size. Iterative reconstruction technique was employed. FINDINGS: There is no acute intraparenchymal hemorrhage. No evidence of mass lesion. No evidence of a cute infarction. There is mild periventricular and subcortical hypodensity probably related to small vessel ischemic disease. There is mild prominence of the sulci and ventricles related to cerebral atr ophy. Intracranial calcified cerebral atherosclerosis is noted. There are no extra-axial collections. There is no mass effect or midline shift. A right periorbital hematoma is noted. The visualized orbi ts are unremarkable. The visualized sinuses and mastoid air cells are well aerated. IMPRESSION: 1. No acute intracranial abnormality. 2. Age related findings. Reviewed, dictated and finalized at location A.
[2020-01-21 11:46] LABS: Basophils Absolute Auto 0.1 K/mm3 (0.0-0.1); Basophils Percent Auto 0.4 % (0.2-1.2); Hematocrit 39.4 % (37.0-47.0); Hemoglobin 12.6 g/dL (12.0-15.0); Immature Granulocyte Absolute 0.26 K/mm3 (0.00-0.031); Immature Platelet Fraction Pct 6.6 % (0.9-11.2); Lymphocytes Absolute Auto 0.44 K/mm3 (0.9-3.2); Lymphocytes Percent Auto 3.3 % (18.3-44.2); Mean Corpuscular Hemoglobin 31.7 pg (26-34); Mean Platelet Volume 11.3 fl (7.4-10.4); Monocytes Absolute Auto 0.6 K/mm3 (0.1-0.6); Monocytes Percent Auto 4.7 % (2.6-8.5); Neutrophils Percent Auto 89.6 % (45.5-73.1); Platelet Count Result 113 k/mm3 (150-375); Red Blood Count 3.98 M/mm3 (4.2-5.4); Red Cell Distribution Width 15.5 % (11.5-14.5); White Blood Count 13.3 K/mm3 (4.5-10.0)
[2020-01-21 11:56] LABS: INR 1.2; Prothrombin Time 14.4 Seconds (11.1-14.7)
[2020-01-21 11:57] LABS: Alanine Aminotransferase 18 U/L (4-35); Albumin Level 4.2 g/dL (3.5-5.1); Alkaline Phosphatase 215 U/L (38-126); Anion Gap 7 mmol/L (8-16); Aspartate Amino Transferase 24 U/L (14-36); Bilirubin,Total 1.1 mg/dL (0.2-1.3); Blood Urea Nitrogen 37 mg/dL (7-17); Calcium 9.9 mg/dL (8.4-10.2); Carbon Dioxide 23 mmol/L (22-30); Chloride 102 mmol/L (98-107); Estimated CRCL calculation 18 ml/min; Estimated Glomerular Filt Rate 24; Glucose 138 mg/dL (65-105); Potassium 5.2 mmol/L (3.4-5.0); Sodium 132 mmol/L (137-145)
--- NOTE | 2020-01-21 13:13 | ED.GENADULT ---
HPI - General Adult General Chief complaint: Extremity Problem,Nontraumatic Stated complaint: dvt-right Time Seen by Provider: 01/21/20 12:14 Source: patient and family Limitations: no limitations History of Present Illness HPI narrative: 84 years old white female, lives alone, tripped and fell 48 hours ago, subsequently developed a swelling on the right lower extremity. And right facial bruising. Patient denies loss of consciousness, headache, nausea, vomiting, chest pain, back pain, abdominal pain, dizziness, lightheadedness or shortness of breath. Patient referred to the emergency room by her family physician to rule out the possibility of deep vein thrombosis. Currently patient on aspirin. Patient reports multiple bruises all over her body even prior to the falls but the swelling of the right lower extremity is new after the fall. Related Data Home Medications Medication Instructions Recorded Confirmed ascorbate calcium (vitamin C) 500 500 mg PO DAILY 04/19/19 01/21/20 mg tablet aspirin 81 mg tablet,delayed 81 mg PO DAILY 04/19/19 01/21/20 release blood sugar diagnostic #10 each 04/19/19 01/21/20 vitamin B complex 1 tablet PO DAILY 04/19/19 01/21/20 multivit with 1 tablet PO DAILY 09/21/19 01/21/20 pigzszbt-[id number]-DQ-lutein 8 mg iron-400 mcg-300 mcg tablet furosemide [Lasix] 40 mg PO QAM 12/15/19 01/21/20 Allergies Allergy/AdvReac Type Severity Reaction Status Date / Time No Known Allergies Allergy Unknown Verified 01/21/20 12:13 Review of Systems Review of Systems: Narrative: CONSTITUTIONAL: Denies fever, chills, or sweats. EYES: Denies visual changes, redness, or discharge. ENT: Denies rhinorrhea, congestion, sore throat, or otalgia. CARDIOVASCULAR: Denies chest pain, palpitations, or edema. RESPIRATORY: Denies cough or dyspnea. GASTROINTESTINAL: Denies abdominal pain, nausea, vomiting, or diarrhea. GENITOURINARY: Denies dysuria or hematuria. SKIN: Denies rash or itching. MUSCULOSKELETAL: Denies back pain, joint pain, or myalgia. NEUROLOGIC: Denies headache, numbness, or weakness. PSYCHIATRIC: Denies anxiety or depression. [facility] Past Medical History Medical History Benign essential hypertension BMI 28.0-28.9,adult Cellulitis Chronic kidney disease, stage 3 Baseline creatinine around 1.20. Degenerative joint disease Diastolic dysfunction recent echocardiogram showed mild mitral valve regurgitation, grade 1 diastolic dysfunction, ejection fraction of 69%. Fall Hip pain, right Hospital discharge follow-up Hyperlipidemia Kidney stones Memory loss Pain and swelling of right lower extremity Parathyroid adenoma Paroxysmal atrial fibrillation Polymyalgia rheumatica Thrush Type 2 diabetes mellitus Hemoglobin A1c was 5.8% on 11/26/2019. Valvular heart disease Surgical History Surgical History History of bunionectomy of both great toes History of parathyroidectomy Family History Family History Father Family history of diabetes mellitus in first degree relative Diabetes mellitus Mother Family history of malignant neoplasm of brain Hypertension Other Family history of coronary artery disease Social History Social History Social History: Surrogate decision maker: Therese Agrawal, daughter. Code status: Full code. Smoking status: Never smoker Second hand tobacco smoke exposure: No Alcohol intake: never Substance use: never Substance use type: does not use Additional living arrangements comments: Patient lives in her own home in [place]. Gender identity (if verbalized by the patient): Female Spiritual care concerns: No Exam Narrative: Exam Narrative: General appearance: Well-developed, well-nourished Skin: Normal color. Multiple bruises upper
[2020-01-21] MEDS: ENOXAPARIN 80 MG/0.8 ML SYRINGE 70 MG SUB-Q (14:31)
--- NOTE | 2020-01-21 22:22 | PM.IMHP ---
H&P: HPI History of Present Illness Date/Time: 01/21/20 23:00 Chief complaint: Right lower extremity deep vein thrombosis Narrative: Nery Agrawal is a 84 year old female With a past medical history of diabetes, polymyalgia rheumatica, chronic gait instability, mild memory loss, and chronic kidney disease stage 3 who presented to the ER from her primary care physician's office due to imaging demonstrated extensive right lower extremity DVT. The patient reports that she tripped and fell while rushing to the door to answer it for her home health care provider approximately 48 hours prior to arrival to the ER. She developed swelling in her right lower extremity later that evening and thought it was due to her fall. She followed up with Dr. Cheikh Galvan today who ordered a venous Doppler of her right lower extremity which demonstrated extensive DVT. He directed the patient to come to the ER for further treatment. The patient reports that when she fell she was not feeling lightheaded or dizzy. She did hit her head and has extensive facial bruising and bruising to bilateral upper extremities. She did not lose consciousness. She was able to work her way over to 1 of her kitchen chairs and was able to stand up. She was ambulating with her cane when she fell. She reported that her home health provider was actually coming to the house to perform physical therapy. She was trying to perera to the door to answer when she fell. She was receiving physical therapy due to her polymyalgia rheumatica. She had been hospitalized in early December due to generalized weakness and had been discharged to acute rehab. She remained in acute rehab until December 28. Since that time she had returned home. She did not notice any pain in her lower extremity. She reports that the swelling in her lower extremity progressed rapidly and is now up into her thigh. She denies a history of prior blood clots. She denies any chest pain, shortness of breath or palpitations. She is not having any orthopnea or paroxysmal nocturnal dyspnea. She denies any hematuria dysuria or changes in urinary frequency. She will occasionally have a small amount of blood in her stool if she has an episode of constipation. She has not been constipated in quite some time. She does have a history of chronic kidney disease with her baseline creatinine between 1 and 1.4. Her creatinine is currently slightly elevated. She reports that she has been trying to drink plenty of fluids. she denies any recent medication changes. She has not been taking any NSAIDs Besides her baby aspirin daily. Source of information is patient report and review of past medical records. Patient is a fair historian. Review of Systems Review of Systems: Narrative: 12 systems were reviewed with pertinent positives and negatives per HPI. Except as documented in the HPI, all other systems were reviewed and are negative. [facility] Past Medical History Medical History (Updated 01/22/20 @ 01:32 by Talia Kemp DO) Benign essential hypertension BMI 28.0-28.9,adult Cellulitis Chronic kidney disease, stage 3 Baseline creatinine around 1.20. Degenerative joint disease Diastolic dysfunction recent echocardiogram showed mild mitral valve regurgitation, grade 1 diastolic dysfunction, ejection fraction of 69%. Hard of hearing Hyperlipidemia Kidney stones Memory loss Parathyroid adenoma s/p excision Paroxysmal atrial fibrillation followed by Dr. Alejo Del Rio. The patient had 1 episode atrial fibrillation following her hip replacement surgery in May Two thousand nineteen Polymyalgia rheumatica Type 2 diabetes mellitus Hemoglobin A1c was 5.8% on 11/26/2019. Valvular heart disease echocardiogram May 2018 demonstrated EF of 70-75%, grade 1 diastolic dysfunction, mild LVH, moderate mitral regurgitation, mild aortic insufficiency, mild pulmonary hypertension with RVSP of 40-45, mild tricuspid regurgitation, mild pulmo
[2020-01-22] VITALS (9 sets, daily range): BP systolic 95–152; BP diastolic 65–71; PULSE 60–99; RESP 18–20; TEMP 36.2–36.4; O2SAT 98–100
[2020-01-22 06:05] LABS: Creatine Kinase 24 U/L (30-135)
[2020-01-22 06:07] LABS: Hematocrit 35.8 % (37.0-47.0); Hemoglobin 11.6 g/dL (12.0-15.0); Immature Platelet Fraction Pct 6.8 % (0.9-11.2); Mean Corpuscular HGB Conc 32.4 g/dl (32-36); Mean Corpuscular Volume 98.9 fl (80-100); Mean Platelet Volume 11.9 fl (7.4-10.4); Platelet Count Result 99 k/mm3 (150-375); Red Blood Count 3.62 M/mm3 (4.2-5.4); Red Cell Distribution Width 15.2 % (11.5-14.5); White Blood Count 9.2 K/mm3 (4.5-10.0)
[2020-01-22 06:32] LABS: Anion Gap 4 mmol/L (8-16); Blood Urea Nitrogen 37 mg/dL (7-17); Calcium 9.3 mg/dL (8.4-10.2); Carbon Dioxide 24 mmol/L (22-30); Chloride 108 mmol/L (98-107); Estimated CRCL calculation 22 ml/min; Estimated Glomerular Filt Rate 29; Glucose 88 mg/dL (65-105); Sodium 136 mmol/L (137-145)
[2020-01-22 07:18] LABS: Potassium 4.5 mmol/L (3.4-5.0)
[2020-01-22 08:01] LABS: Glucose Point of Care 75 (65-105)
[2020-01-22] MEDS: predniSONE 10 MG TABLET 30 MG PO (08:21)
[2020-01-22] MEDS: THERAPEUTIC MULTIVITAMINS/MINERALS TAB (*BKC) 1 TABLET PO (08:21)
[2020-01-22] MEDS: CALCIUM CARBONATE (OSCAL) 500 MG TABLET PO (08:22)
[2020-01-22] MEDS: ASPIRIN 81 MG ENTERIC TABLET PO (08:22)
[2020-01-22] MEDS: ASCORBIC ACID 500 MG TABLET PO (08:22)
[2020-01-22] MEDS: ROSUVASTATIN 10 MG TABLET PO (08:22)
[2020-01-22] MEDS: METOPROLOL TARTRATE 12.5 MG TABLET PO ×2 (08:22→21:18)
[2020-01-22] MEDS: VITAMIN B COMPLEX CAPSULE 1 CAP PO (08:22)
--- NOTE | 2020-01-22 13:08 | PM.IMPN ---
Progress Note: A&P Assessment and Plan (1) Acute deep vein thrombosis (DVT) of right lower extremity: Qualifiers: Affected thrombotic vein of extremity: femoral Qualified Code(s): I82.411 - Acute embolism and thrombosis of right femoral vein Code(s): I82.401 - Acute embolism and thrombosis of unspecified deep veins of right lower extremity Status: Acute Assessment and Plan: Venous Doppler shows extensive acute DVT of right lower limb. Patient is on renally dosed Lovenox at this time. Will discontinue Lovenox and plan to transition to Eliquis tomorrow. Begin with 10 mg BID x7 days. No renal dosing required for therapeutic treatment. The risks of bleeding if future falls while on anticoagulants have been discussed with the patient. (2) Fall: Qualifiers: Encounter type: initial encounter Qualified Code(s): W19.XXXA - Unspecified fall, initial encounter Code(s): W19.XXXA - Unspecified fall, initial encounter Status: Acute Assessment and Plan: Patient tripped and fell while attempting to perera to answer her door. She has significant facial bruising with a CT showing right periorbital soft tissue swelling without fracture. Head CT was negative for any acute abnormalities. PT and OT consult has been placed and recommendations are appreciated. (3) Acute renal failure superimposed on stage 3 chronic kidney disease: Qualifiers: Acute renal failure type: unspecified Qualified Code(s): N17.9 - Acute kidney failure, unspecified; N18.3 - Chronic kidney disease, stage 3 (moderate) Code(s): N17.9 - Acute kidney failure, unspecified; N18.3 - Chronic kidney disease, stage 3 (moderate) Status: Acute Assessment and Plan: Baseline creatinine appears to be about 1.1-1.2. Creatinine at presentation was 2.0. Improved today to 1.7. Likely prerenal due to dehydration. Will add low dose IV fluids cautiously given diastolic dysfunction Continue to hold Lasix and angiotensin receptor kylah. Continue to monitor renal function closely. Renally dose medications and avoid nephrotoxic agents. (4) Polymyalgia rheumatica: Code(s): M35.3 - Polymyalgia rheumatica Status: Acute Assessment and Plan: She reports no current joint pain. Continue PO prednisone (5) Type 2 diabetes mellitus: Qualifiers: Diabetes mellitus mcfp insulin use: without mcfp use Code(s): E11.9 - Type 2 diabetes mellitus without complications Status: Acute Assessment and Plan: The patient was euglycemic on presentation to the ER. Blood sugars reviewed today and are stable. Will continue patient's home Januvia and low-dose sliding scale insulin with Accu-Cheks ACHS and hypoglycemia protocol. (6) Hyperkalemia: Code(s): E87.5 - Hyperkalemia Status: Acute Assessment and Plan: Potassium was 5.2 at presentation. She is on 10 mEq KCl daily. The patient's home potassium supplement and angiotensin receptor kylah have been held. Repeat BMP in a.m. (7) Thrombocytopenia: Code(s): D69.6 - Thrombocytopenia, unspecified Status: Acute Assessment and Plan: Platelets within normal limits at presentation 159k. Declined to 113k yesterday evening and 99,000 today. Etiology for this is unclear. Most likely secondary to platelet consumption due to extensive DVT burden, which is supported by elevated immature platelets. ITP, TTP, and HUS is considered given bruising, but this may simply be explained by patients fall. She has no petechiae or any additional evidence of bleeding. No fevers or diarrhea. HIT is considered as patient has received 2 doses of Lovenox. Less likely with only 2 doses and <4 days since exposure. Patient has 1 point on 4T score indicating low probability for HIT. Discontinue Lovenox. Monitor platelets closely. Suspect platelet increase wi
[2020-01-22] MEDS: ENOXAPARIN 80 MG/0.8 ML SYRINGE 70 MG SUB-Q (14:27)
[2020-01-22 16:26] LABS: Glucose Point of Care 198 (65-105)
[2020-01-22] MEDS: SODIUM CHLORIDE 0.9% IV 500 ML 75 ML IV CONT (17:19)
[2020-01-22 20:21] LABS: Glucose Point of Care 116 (65-105)
[2020-01-22 21:26] LABS: Glucose Point of Care 117 (65-105)
[2020-01-23] VITALS (7 sets, daily range): BP systolic 104–142; BP diastolic 58–62; PULSE 54–99; RESP 16–18; TEMP 36.2–36.3; O2SAT 99–100
[2020-01-23 06:01] LABS: Basophils Percent Auto 0.2 % (0.2-1.2); Eosinophils Percent Auto 0.3 % (0-4.4); Hematocrit 34.6 % (37.0-47.0); Hemoglobin 11.2 g/dL (12.0-15.0); Immature Granulocyte Percent A 2.2 % (0-0.5); Immature Platelet Fraction Pct 6.3 % (0.9-11.2); Lymphocytes Absolute Auto 0.76 K/mm3 (0.9-3.2); Lymphocytes Percent Auto 8.2 % (18.3-44.2); Mean Corpuscular HGB Conc 32.4 g/dl (32-36); Mean Corpuscular Volume 98.9 fl (80-100); Mean Platelet Volume 11.8 fl (7.4-10.4); Monocytes Absolute Auto 0.9 K/mm3 (0.1-0.6); Monocytes Percent Auto 9.3 % (2.6-8.5); Neutrophils Absolute Auto 7.4 K/mm3 (1.3-6.7); Neutrophils Percent Auto 79.8 % (45.5-73.1); Platelet Count Result 103 k/mm3 (150-375); Red Cell Distribution Width 15.1 % (11.5-14.5); White Blood Count 9.3 K/mm3 (4.5-10.0)
[2020-01-23 06:19] LABS: Alanine Aminotransferase 13 U/L (4-35); Albumin Level 3.4 g/dL (3.5-5.1); Alkaline Phosphatase 153 U/L (38-126); Anion Gap 4 mmol/L (8-16); Aspartate Amino Transferase 19 U/L (14-36); Bilirubin,Total 0.6 mg/dL (0.2-1.3); Blood Urea Nitrogen 37 mg/dL (7-17); Calcium 9.4 mg/dL (8.4-10.2); Carbon Dioxide 24 mmol/L (22-30); Chloride 107 mmol/L (98-107); Estimated CRCL calculation 28 ml/min; Estimated Glomerular Filt Rate 39; Glucose 101 mg/dL (65-105); Potassium 4.6 mmol/L (3.4-5.0); Sodium 135 mmol/L (137-145)
[2020-01-23 07:43] LABS: Glucose Point of Care 71 (65-105)
[2020-01-23] MEDS: METOPROLOL TARTRATE 12.5 MG TABLET PO (09:34)
[2020-01-23] MEDS: predniSONE 10 MG TABLET 30 MG PO (09:35)
[2020-01-23] MEDS: ROSUVASTATIN 10 MG TABLET PO (09:35)
[2020-01-23] MEDS: VITAMIN B COMPLEX CAPSULE 1 CAP PO (09:35)
[2020-01-23] MEDS: CALCIUM CARBONATE (OSCAL) 500 MG TABLET PO (09:35)
[2020-01-23] MEDS: ASCORBIC ACID 500 MG TABLET PO (09:35)
[2020-01-23] MEDS: ASPIRIN 81 MG ENTERIC TABLET PO (09:35)
[2020-01-23] MEDS: APIXABAN 5 MG TABLET 10 MG PO (09:36)
[2020-01-23] MEDS: THERAPEUTIC MULTIVITAMINS/MINERALS TAB (*BKC) 1 TABLET PO (09:36)
[2020-01-23 12:39] LABS: Glucose Point of Care 134 (65-105)
--- NOTE | 2020-01-23 13:37 | PM.DS ---
DS: Admitting Diagnosis Admitting Diagnosis Admitting Diagnosis: Right lower extremity deep vein thrombosis DS: Discharge Diagnosis Discharge Diagnosis (1) Acute deep vein thrombosis (DVT) of right lower extremity: Qualifiers: Affected thrombotic vein of extremity: femoral Qualified Code(s): I82.411 - Acute embolism and thrombosis of right femoral vein Code(s): I82.401 - Acute embolism and thrombosis of unspecified deep veins of right lower extremity Status: Acute Assessment and Plan: Venous Doppler shows extensive acute DVT of right lower limb. She was initiated on renally dosed Lovenox and received 2 doses. She was then transitioned to Eliquis which she will continue. No renal dosing is required for therapeutic dosing. Patient has a HAS-BLED score of 2 Risk of bleeding with anticoagulants was discussed with the patient in depth and she was educated on monitoring for any signs or symptoms of bleeding and to seek evaluation for falls, injuries, or accidents which put her at risk for bleeding. (2) Fall: Qualifiers: Encounter type: initial encounter Qualified Code(s): W19.XXXA - Unspecified fall, initial encounter Code(s): W19.XXXA - Unspecified fall, initial encounter Status: Acute Assessment and Plan: Patient tripped and fell while attempting to perera to answer her door. She did not hit her head, she did not lose consciousness, and she did not feel dizzy or lightheaded prior to falling. She has significant facial bruising with a CT showing right periorbital soft tissue swelling without fracture. Head CT was negative for any acute abnormalities. she was evaluated by PT and OT and will continue therapy at [facility]. (3) Acute renal failure superimposed on stage 3 chronic kidney disease: Qualifiers: Acute renal failure type: unspecified Qualified Code(s): N17.9 - Acute kidney failure, unspecified; N18.3 - Chronic kidney disease, stage 3 (moderate) Code(s): N17.9 - Acute kidney failure, unspecified; N18.3 - Chronic kidney disease, stage 3 (moderate) Status: Acute Assessment and Plan: Likely prerenal secondary to dehydration. Baseline creatinine appears to be about 1.1-1.2. Creatinine at presentation was 2.0. Improved to to 1.3 with very gentle IV fluids given her diastolic dysfunction. Lasix and irbesartan initially held but were resumed upon improvement in renal function. (4) Polymyalgia rheumatica: Code(s): M35.3 - Polymyalgia rheumatica Status: Acute Assessment and Plan: She reports no current joint pain. Continue PO prednisone (5) Type 2 diabetes mellitus: Qualifiers: Diabetes mellitus residential insulin use: without residential use Code(s): E11.9 - Type 2 diabetes mellitus without complications Status: Acute Assessment and Plan: Blood sugars were reviewed and remained well controlled with low-dose SSI. Continue Januvia. (6) Hyperkalemia: Code(s): E87.5 - Hyperkalemia Status: Acute Assessment and Plan: Likely due to dehydration exacerbated by potassium sparing medications. Potassium was 5.2 at presentation. She is on 10 mEq KCl daily which was held. Irbesartan was held as well. Potassium declined to 4.6. Low-dose potassium supplement and irbesartan was resumed, and patient should obtain repeat potassium level in 1 week. Educated on maintaining adequate hydration. (7) Thrombocytopenia: Code(s): D69.6 - Thrombocytopenia, unspecified Status: Acute Assessment and Plan: Platelets within normal limits at presentation at 159k. Declined to 113k and then 99,000 on 01/22/20. Etiology for this is most likely secondary to platelet consumption due to extensive DVT burden, which is supported by elevated immature platelets. ITP, TTP, and HUS was considered given bruising, although bruising has clear explanation given patients fall. She has n
[2020-01-23 16:33] LABS: Glucose Point of Care 150 (65-105)
== END 2020-01-23 18:15 ==
LOC: ANHED 15:40 → ANH3MED 16:30
PROVIDERS: Emergency Medicine; Internal Medicine; Admitting Provider Family Medicine; Emergency Provider Emergency Medicine; PCP Internal Medicine; Visit Provider Physician Assistant
DX: I82.411 Acute embolism and thrombosis of right femoral vein (principal); W01.0XXA Fall on same level from slipping, tripping and stumbling without subsequent striking against object, initial encounter; I13.0 Hypertensive heart and chronic kidney disease with heart failure and stage 1 through stage 4 chronic kidney disease, or unspecified chronic kidney disease; I50.30 Unspecified diastolic (congestive) heart failure; N18.3 Chronic kidney disease, stage 3 (moderate); E87.5 Hyperkalemia; D69.6 Thrombocytopenia, unspecified; E78.5 Hyperlipidemia, unspecified; I48.0 Paroxysmal atrial fibrillation; M35.3 Polymyalgia rheumatica; E11.22 Type 2 diabetes mellitus with diabetic chronic kidney disease; Z79.82 Long term (current) use of aspirin; Z79.84 Long term (current) use of oral hypoglycemic drugs
CPT/HCPCS: 36415; 70450; 70486; 80048; 80053; 82550; 85025; 85027; 85055; 85610; 85730; 93971; 96372; 97110; 97116; 97161; 97165; 99285; A9270; G0378; J1650; J7040; J7512

== ENCOUNTER 2020-01-23 18:58 | IRF | payer MEDICARE, SELFPAY ==
[2020-01-23 18:10] VITALS: BP 127/73; PULSE 65; RESP 20; TEMP 36.3; O2SAT 100; BMI 28.3
--- NOTE | 2020-01-23 18:55 | ADMGEN ---
This patient, Nery Agrawal, was admitted to [facility] Room 221-01. Patient/family oriented to hospital policies and general routines including ID bracelet, bed and alarms, visiting hours, pain management, procedures, bathroom and other care routines, personal items, smoking policy, room service/diet, and visiting hours. Valuables list has been completed. Information on how to activate the Rapid Response Team has been discussed. Patient/Family are encouraged to report perceived risks to care and to ask questions if they do not understand what they are told or what they should do. Patient arrived to floor at 1810, She is alert and oriented with no c/o pain at this time, her nice is with her. She has been here before and remembers protocols for [facility] and is ready to participate in therapy.
[2020-01-23 20:00] VITALS: BMI 27.6
[2020-01-23] MEDS: APIXABAN 5 MG TABLET 10 MG PO (21:18)
[2020-01-23 22:00] VITALS: BP 125/59; PULSE 64; RESP 20; TEMP 36.5; O2SAT 95
[2020-01-24 04:53] LABS: Basophils Percent Auto 0.3 % (0.2-1.2); Eosinophils Percent Auto 0.3 % (0-4.4); Hematocrit 33.2 % (37.0-47.0); Hemoglobin 10.7 g/dL (12.0-15.0); Immature Granulocyte Absolute 0.27 K/mm3 (0.00-0.031); Immature Granulocyte Percent A 3.1 % (0-0.5); Immature Platelet Fraction Pct 6.8 % (0.9-11.2); Lymphocytes Absolute Auto 0.83 K/mm3 (0.9-3.2); Lymphocytes Percent Auto 9.6 % (18.3-44.2); Mean Corpuscular HGB Conc 32.2 g/dl (32-36); Mean Corpuscular Hemoglobin 31.9 pg (26-34); Mean Corpuscular Volume 99.1 fl (80-100); Mean Platelet Volume 11.6 fl (7.4-10.4); Monocytes Absolute Auto 0.8 K/mm3 (0.1-0.6); Monocytes Percent Auto 8.9 % (2.6-8.5); Neutrophils Absolute Auto 6.7 K/mm3 (1.3-6.7); Neutrophils Percent Auto 77.8 % (45.5-73.1); Platelet Count Result 111 k/mm3 (150-375); Red Blood Count 3.35 M/mm3 (4.2-5.4); Red Cell Distribution Width 14.9 % (11.5-14.5); White Blood Count 8.6 K/mm3 (4.5-10.0)
[2020-01-24 05:01] LABS: Anion Gap 3 mmol/L (8-16); Blood Urea Nitrogen 38 mg/dL (7-17); Calcium 9.4 mg/dL (8.4-10.2); Carbon Dioxide 25 mmol/L (22-30); Chloride 106 mmol/L (98-107); Estimated CRCL calculation 31 ml/min; Estimated Glomerular Filt Rate 43; Glucose 100 mg/dL (65-105); Potassium 4.2 mmol/L (3.4-5.0); Sodium 134 mmol/L (137-145)
[2020-01-24 06:00] VITALS: BP 150/69; PULSE 54; RESP 20; TEMP 36.4; O2SAT 100
[2020-01-24 06:40] LABS: Glucose Point of Care 81 (65-105)
[2020-01-24 07:55] VITALS: PULSE 84
[2020-01-24] MEDS: predniSONE 10 MG TABLET 30 MG PO (08:37)
[2020-01-24] MEDS: ASPIRIN 81 MG ENTERIC TABLET PO (08:38)
[2020-01-24] MEDS: ASCORBIC ACID 500 MG TABLET PO (08:38)
[2020-01-24] MEDS: APIXABAN 5 MG TABLET 10 MG PO ×2 (08:38→19:55)
[2020-01-24 08:39] VITALS: PULSE 54
[2020-01-24] MEDS: CALCIUM CARBONATE (OSCAL) 500 MG TABLET PO (08:39)
[2020-01-24] MEDS: IRBESARTAN 150 MG TABLET 300 MG PO (08:39)
[2020-01-24] MEDS: POTASSIUM CHLORIDE 10 MEQ TABLET.ER PO (08:39)
[2020-01-24] MEDS: FUROSEMIDE 40 MG TABLET PO (08:39)
[2020-01-24] MEDS: METOPROLOL TARTRATE 12.5 MG TABLET PO ×2 (08:39→19:55)
[2020-01-24] MEDS: THERAPEUTIC MULTIVITAMINS/MINERALS TAB (*BKC) 1 TABLET PO (08:39)
[2020-01-24] MEDS: ROSUVASTATIN 10 MG TABLET PO (08:40)
[2020-01-24] MEDS: VITAMIN B COMPLEX CAPSULE 1 CAP PO (08:40)
--- NOTE | 2020-01-24 11:00 | WPDREHABHP ---
H&P: HPI History of Present Illness Date/Time: 01/24/20 12:05 Chief complaint: Generalized Weakness Narrative: Nery Agrawal is a 84 year old female she is here with rehab impairment category of miscellaneous /generalized weakness The patient was seen [id number] at 11:00 a.m. on January 24, 2020 This 84-year-old woman is known to me from the previous rehab hospitalization she is right-handed with a prior medical history of hypertension polymyalgia rheumatica, chronic kidney disease 3, paroxysmal atrial fibrillation, type 2 diabetes mellitus who presented to [facility] on January 21, 2020 from her PCP office because the patient had tripped and fell 48 hours prior neb subsequently developed swelling of the right lower extremity and right facial bruising. She reported that she ambulating with a cane and was rushing to the door to let in her home health physical therapist when she fell the patient reported that she hit her head and face but denies loss of consciousness. She was referred to the emergency room by Dr. Blayne orellana she he due to an extensive DVT which was revealed a venous Doppler of the right lower extremity which is still swollen but better as she reported. The patient also reported a multiple bruises all over her body and swelling of the right lower extremity. Head CT showed no acute intracranial abnormality and age-related findings. Face CT revealed right periorbital soft tissue swelling without acute osseous abnormality. The potassium on presentation was noted to be 5.2 and her home potassium supplement and angiotensin receptor blockers have been held the the patient has laboratory analysis done and seems to be fairly good at this point The patient has not traveled outside the [place] or had contact with someone who is ill that has traveled outside the [place] in the past 21 days. The patient has not traveled to an area of the [place] that is experiencing known transmission of the Coronavirus and has not had close personal contact with anyone that has. The patient does not have a fever. The patient is not experiencing lower respiratory illness symptoms. Therapy was initiated at the acute care facility and the patient was transferred to us from [facility] on January 23, 2020. The patient has not had any major surgeries in the 100 days prior to admission. The patient has had falls in the past year. The patient has had falls with injury in the past year. Review of Systems Constitutional Constitutional: Reports as per HPI Eyes Eyes: Reports as per HPI ENT Reports as per HPI Cardiovascular Cardiovascular: Reports as per HPI Respiratory Respiratory: Reports as per HPI Gastrointestinal Gastrointestinal: Reports as per HPI Genitourinary Genitourinary: Reports as per HPI Musculoskeletal Musculoskeletal: Reports as per HPI Integumentary/Breasts Skin/Breast: Reports as per HPI Neurologic Reports as per HPI Psychiatric Psychiatric: Reports as per HPI [facility] Past Medical History Medical History Benign essential hypertension BMI 28.0-28.9,adult Cellulitis Chronic kidney disease, stage 3 Baseline creatinine around 1.20. Degenerative joint disease Diastolic dysfunction recent echocardiogram showed mild mitral valve regurgitation, grade 1 diastolic dysfunction, ejection fraction of 69%. Hard of hearing Hyperlipidemia Kidney stones Memory loss Parathyroid adenoma s/p excision Paroxysmal atrial fibrillation followed by Dr. Alejo Del Rio. The patient had 1 episode atrial fibrillation following her hip replacement surgery in May thousand nineteen Polymyalgia rheumatica Type 2 diabetes mellitus Hemoglobin A1c was 5.8% on 11/26/2019. Valvular heart disease echocardiogram May 2018 demonstrated EF of 70-75%, grade 1 diastolic dysfunction, mild LVH, moderate mitral regurgitation, mild aortic insufficiency, mild pulmonary hypertension with RVSP of 40-45, mild tr
[2020-01-24 12:03] LABS: Glucose Point of Care 132 (65-105)
[2020-01-24 14:00] VITALS: BP 146/68; PULSE 68; RESP 20; TEMP 36.6; O2SAT 98
[2020-01-24 17:08] LABS: Glucose Point of Care 133 (65-105)
[2020-01-24 19:55] VITALS: PULSE 68
[2020-01-24 22:00] VITALS: BP 107/61; PULSE 72; RESP 18; TEMP 36.1; O2SAT 99
[2020-01-25 06:00] VITALS: BP 151/57; PULSE 71; RESP 16; TEMP 36.7; O2SAT 100
[2020-01-25 06:45] LABS: Glucose Point of Care 76 (65-105)
[2020-01-25] MEDS: CALCIUM CARBONATE (OSCAL) 500 MG TABLET PO (07:45)
[2020-01-25] MEDS: ASCORBIC ACID 500 MG TABLET PO (07:46)
[2020-01-25] MEDS: predniSONE 10 MG TABLET 30 MG PO (07:46)
[2020-01-25] MEDS: APIXABAN 5 MG TABLET 10 MG PO ×2 (07:46→20:10)
[2020-01-25 07:47] VITALS: PULSE 71
[2020-01-25] MEDS: FUROSEMIDE 40 MG TABLET PO (07:47)
[2020-01-25] MEDS: METOPROLOL TARTRATE 12.5 MG TABLET PO ×2 (07:47→20:10)
[2020-01-25] MEDS: IRBESARTAN 150 MG TABLET 300 MG PO (07:47)
[2020-01-25] MEDS: ASPIRIN 81 MG ENTERIC TABLET PO (07:47)
[2020-01-25] MEDS: THERAPEUTIC MULTIVITAMINS/MINERALS TAB (*BKC) 1 TABLET PO (07:47)
[2020-01-25] MEDS: POTASSIUM CHLORIDE 10 MEQ TABLET.ER PO (07:48)
[2020-01-25] MEDS: ROSUVASTATIN 10 MG TABLET PO (07:48)
[2020-01-25] MEDS: VITAMIN B COMPLEX CAPSULE 1 CAP PO (07:48)
[2020-01-25 12:07] LABS: Glucose Point of Care 133 (65-105)
--- NOTE | 2020-01-25 13:02 | WPDNEURORHBP ---
Subjective Date/time seen: 01/25/20 13:02 Interval history: this 84-year-old woman is here due to generalized weakness debility which followed her fall at home she is doing fairly well she denies any headache nausea vomiting chest pain or shortness of breath the patient does have DVT for which she is being treated the input from the GI physical therapist is good she is walking with wheel walker fairly good Review of Systems Review of Systems: All systems reviewed & are unremarkable except as noted in HPI and below Functional Status Ambulation Ability Ability to Ambulate 10 Feet: Standby Assistance Ability to Ambulate 50 Feet With 2 Turns: Standby Assistance Ability to Ambulate 150 Feet: Standby Assistance Ambulation Assistive Devices: Walker, Wheeled Transfers Ability Ability to Transfer In/Out of Chair: Standby Assistance Exam Const: General: comfortable and no acute distress HENMT: General nose exam: Normal nares present Mouth: Yes moist mucous membranes Eyes: General: appearance normal, both eyes and all related structures Neck: Neck: supple and no JVD Resp: Effort & Inspection: normal respiratory effort Auscultation: clear to auscultation bilaterally Cardio: Rate: regular rate Rhythm: regular rhythm GI: GI Palp: Yes Soft to palpation Auscultation: normal bowel sounds Skin: General skin exam: normal color and no rashes or lesions noted Neuro: General: gait normal Speech: normal speech Extrem: Other: right lower extremity swelling is little bit less where she has the DVT Psych: Mental Status: mental status grossly normal Other: mild memory deficit Objective Data Vital Signs Vital Signs: Vital Signs - 24 hr 01/24/20 14:00 01/24/20 19:55 01/24/20 22:00 Temperature 36.6 C 36.1 C L Pulse Rate 68 68 72 Respiratory Rate 20 18 Blood Pressure 146/68 H 107/61 Pulse Oximetry 98 99 01/25/20 06:00 01/25/20 07:47 Temperature 36.7 C Pulse Rate 71 71 Respiratory Rate 16 Blood Pressure 151/57 H Pulse Oximetry 100 Intake/Output Intake/Output: Intake & Output 01/22/20 01/23/20 01/24/20 01/25/20 23:59 23:59 23:59 23:59 Intake Total 720 600 Balance 720 600 Meds/Results Medications: Active Medications Generic Name Dose Route Start Last Admin Trade Name Freq PRN Reason Stop Dose Admin Apixaban 5 mg 01/30/20 09:00 Eliquis PO Q12HR VANI Apixaban 10 mg 01/23/20 21:00 01/25/20 07:46 Eliquis PO 01/29/20 21:01 10 mg Q12HR VANI Administration Ascorbic Acid 500 mg 01/24/20 09:00 01/25/20 07:46 Vitamin C PO 500 mg DAILY VANI Administration Aspirin 81 mg 01/24/20 09:00 01/25/20 07:47 Aspirin Ec PO 81 mg DAILY VANI Administration Calcium Carbonate 500 mg 01/24/20 09:00 01/25/20 07:45 Oscal 500 Mg PO 500 mg DAILY VANI Administration Dextrose 12.5 gm 01/23/20 19:52 Dextrose 50% Syringe IV PUSH PRN PRN Hypoglycemia Protocol Furosemide 40 mg 01/24/20 09:00 01/25/20 07:47 Lasix Tablet PO 40 mg QAM VANI Administration Glucagon 1 mg 01/23/20 19:52 Glucagon For Inj IM PRN PRN Hypoglycemia Protocol Glucose 15 gm 01/23/20 19:52 Glutose 15 PO PRN PRN Hypoglycemia Protocol Dextrose 1,000 mls @ 100 mls/hr 01/23/20 19:52 Dextrose 5% 1,000 Ml IVPB PRN PRN Hypoglycemia Protocol Irbesartan 300 mg 01/24/20 09:00 01/25/20 07:47 Avapro PO 300 mg DAILY VANI Administration Metoprolol Tartrate 12.5 mg 01/24/20 09:00 01/25/20 07:47 Lopressor PO 12.5 mg Q12HR VANI Administration Multivitamins/Calcium 1 tablet 01/24/20 09:00 01/25/20 07:47 Therapeutic Multivitamins/Minerals PO 1 tablet DAILY VANI Administration Potassium Chloride 10 meq 01/24/20 09:00 01/25/20 07:48 Kcl Tablet PO 10 meq DAILY [facility] Administration Prednisone 20 mg 01/26/20 08:00 Prednisone PO 02/22/20 08:01 DAILY@0800 [facility] Rosuvast
[2020-01-25 13:19] VITALS: BMI 27.6
[2020-01-25 14:00] VITALS: BP 132/64; PULSE 69; RESP 20; TEMP 36.6; O2SAT 100
--- NOTE | 2020-01-25 16:01 | RPD ---
INDIVIDUALIZED PLAN OF CARE FOR Nery Agrawal Brief Synthesis of Pre-Admission Screen, Post-Admission Evaluation and Therapy Evaluations: The patient presents to rehab with generalized weakness. Comorbidities include polymyalgia rheumatica, mild memory loss, acute renal failure superimposed on chronic kidney disease stage 3, type 2 diabetes mellitus, diastolic dysfunction, DJD, paroxysmal atrial fibrillation, hyperlipidemia, hypertension, valvular heart disease, pedal edema, anemia, right lower extremity pain, s/p ground level fall, periorbital soft tissue swelling, hyperkalemia, and thrombocytopenia. The complexity of the patient's medical management, nursing, and therapy needs require an inpatient rehab hospital stay with a physician-led interdisciplinary team approach. The patient's needs will be best met in an intensive program vs. at a lower level of care. The patient requires physician services for medical oversight, pain control, monitoring of a DVT, monitoring of labs, medication changes, and medical complications that have occurred during her hospital stay. The patient requires nursing services for lab monitoring, anti-coagulation therapy, medication management and education, pressure relief and skin care management, diabetes management and education, and fall/safety precautions. Deficits include:ADLs, Balance, Endurance, Family Training/Education, Mobility, Pain Management, ROM, Safety, Strength, and Transfers. [employer] Mail Processor/Case Management for: Discharge Planning and Patient/Family Counseling Physical Therapy: 5 days per week for 90 minutes. Treatments may include: Therapeutic Exercise, Gait Training, Neuromuscular Re-education, Transfer Training, Community Reintegration, Bed Mobility, Patient/Family Education, Wheelchair Mobility Group Therapy/Concurrent Therapy Rationales: -Improve attention span during functional activities in a distracted environment. -Enhance problem solving and/or adequate judgment skills during functional activities in a distracted environment. -Promote increased safety awareness in a distracted environment to reduce fall risk with functional tasks, transfers, and ambulation to allow a more safe, self-sufficient return to the home environment. -Improve dynamic balance skills to promote safety and independence with functional activities in a distracted environment for maximum gain. Occupational Therapy: 5 days per week for 90 minutes. Treatments may include: Therapeutic Exercise, Therapeutic Activity, Cognitive Training, Self-Care Transfer Training, Community Reintegration, Home Management, Patient/Family Education, Wheelchair Mobility Training, Energy Conservation Training Group Therapy/Concurrent Therapy Rationales: -Allow therapist to observe and teach generalization and carry-over of skills learned in individual therapy. -Enhance problem solving and sequencing skills during therapeutic activities in a distracted environment. -Promote increased safety awareness in a realistic setting to reduce fall risk with functional tasks due to visual and verbal distractions. -Increase functional level with ADLs, ADL transfers and use of adaptive equipment through therapeutic activities with others while promoting safety to allow a more safe, self-sufficient return home. Medical Prognosis: Good Anticipated Length of Stay: 7 days Rehab Goals: Eating Goal: 06-Independent Oral Hygiene Goal: 06-Independent Toileting Hygiene Goal: 06-Independent Shower/Bathe Self Goal: 06-Independent Upper Body Dressing Goal: 06-Independent Lower Body Dressing Goal: 06-Independent Putting On/Taking Off Footwear Goal: 06-Independent Rolling Left and Right Goal: 06-Independent Sit to Lying Goal: 06-Independent Lying to Sitting on Side of Bed Goal: 06-Independent Sit to Stand Goal: 06-Independent Chair/Eis-yc-Mhbeg Transfer Goal: 06-Independent Toilet Transfer Goal: 06-Independent Car Transfer Goal: 06-Independent Walk 10' Goal: 06-Independent Wa
[2020-01-25 17:03] LABS: Glucose Point of Care 154 (65-105)
[2020-01-25 20:00] VITALS: PULSE 75; RESP 18; O2SAT 98
[2020-01-25 20:10] VITALS: PULSE 75
[2020-01-25 20:55] VITALS: BP 127/72; PULSE 75; RESP 18; TEMP 36; O2SAT 98
[2020-01-26 04:58] VITALS: BP 136/58; PULSE 63; RESP 18; TEMP 36.1; O2SAT 99
[2020-01-26 07:01] LABS: Glucose Point of Care 80 (65-105)
[2020-01-26] MEDS: predniSONE 20 MG TABLET PO (07:57)
[2020-01-26] MEDS: APIXABAN 5 MG TABLET 10 MG PO ×2 (07:57→20:30)
[2020-01-26 07:58] VITALS: PULSE 64
[2020-01-26] MEDS: ASPIRIN 81 MG ENTERIC TABLET PO (07:58)
[2020-01-26] MEDS: METOPROLOL TARTRATE 12.5 MG TABLET PO ×2 (07:58→20:30)
[2020-01-26] MEDS: CALCIUM CARBONATE (OSCAL) 500 MG TABLET PO (07:58)
[2020-01-26] MEDS: ASCORBIC ACID 500 MG TABLET PO (07:58)
[2020-01-26] MEDS: IRBESARTAN 150 MG TABLET 300 MG PO (07:58)
[2020-01-26] MEDS: FUROSEMIDE 40 MG TABLET PO (07:58)
[2020-01-26] MEDS: POTASSIUM CHLORIDE 10 MEQ TABLET.ER PO (07:59)
[2020-01-26] MEDS: THERAPEUTIC MULTIVITAMINS/MINERALS TAB (*BKC) 1 TABLET PO (07:59)
[2020-01-26] MEDS: ROSUVASTATIN 10 MG TABLET PO (08:00)
[2020-01-26] MEDS: VITAMIN B COMPLEX CAPSULE 1 CAP PO (08:01)
--- NOTE | 2020-01-26 11:32 | WPDNEURORHBP ---
Subjective Date/time seen: 01/26/20 11:32 Interval history: this pleasant 84-year-old woman is here because of debility generalized weakness and a fall which has resulted in the ecchymosis and bruising of the right side of the face the patient denies any headache nausea vomiting chest pain shortness of breath fever chills sore throat she was seen by primary care physician yesterday and was told she is doing fairly well the prednisone she takes for polymyalgia rheumatica has been decreased from 30 to 20 milligram daily Review of Systems Review of Systems: All systems reviewed & are unremarkable except as noted in HPI and below Functional Status Ambulation Ability Ability to Ambulate 10 Feet: Independent Ability to Ambulate 50 Feet With 2 Turns: Independent Ability to Ambulate 150 Feet: Independent Ambulation Assistive Devices: Walker, Wheeled Transfers Ability Ability to Transfer In/Out of Chair: Independent Exam Const: General: comfortable and no acute distress HENMT: General nose exam: Normal nares present Mouth: Yes moist mucous membranes Other: the bruising on the right side of the face and ecchymosis is improved Eyes: General: appearance normal, both eyes and all related structures Neck: Neck: supple and no JVD Resp: Effort & Inspection: normal respiratory effort Auscultation: clear to auscultation bilaterally Cardio: Rate: regular rate Rhythm: regular rhythm GI: GI Palp: Yes Soft to palpation Auscultation: normal bowel sounds Skin: Other: the bruising on the right side of the face is improving Neuro: Other: patient remains awake and alert will oriented with mild short-term memory deficit with generalized weakness needing assistance in the activities of daily living Extrem: General: normal to inspection Psych: Mental Status: mental status grossly normal Objective Data Vital Signs Vital Signs: Vital Signs - 24 hr 01/25/20 14:00 01/25/20 20:00 01/25/20 20:10 Temperature 36.6 C Pulse Rate 69 75 75 Respiratory Rate 20 18 Blood Pressure 132/64 Pulse Oximetry 100 98 01/25/20 20:55 01/26/20 04:58 01/26/20 07:58 Temperature 36.0 C L 36.1 C L Pulse Rate 75 63 64 Respiratory Rate 18 18 Blood Pressure 127/72 136/58 L Pulse Oximetry 98 99 Intake/Output Intake/Output: Intake & Output 01/23/20 01/24/20 01/25/2009/20 23:59 23:59 23:59 23:59 Intake Total 720 840 240 Balance 720 840 240 Meds/Results Medications: Active Medications Generic Name Dose Route Start Last Admin Trade Name Fareed PRN Reason Stop Dose Admin Apixaban 5 mg 01/30/20 09:00 Eliquis PO Q12HR VANI Apixaban 10 mg 01/23/20 21:00 01/26/20 07:57 Eliquis PO 01/29/20 21:01 10 mg Q12HR VANI Administration Ascorbic Acid 500 mg 01/24/20 09:00 01/26/20 07:58 Vitamin C PO 500 mg DAILY VANI Administration Aspirin 81 mg 01/24/20 09:00 01/26/20 07:58 Aspirin Ec PO 81 mg DAILY VANI Administration Calcium Carbonate 500 mg 01/24/20 09:00 01/26/20 07:58 Oscal 500 Mg PO 500 mg DAILY VANI Administration Dextrose 12.5 gm 01/23/20 19:52 Dextrose 50% Syringe IV PUSH PRN PRN Hypoglycemia Protocol Furosemide 40 mg 01/24/20 09:00 01/26/20 07:58 Lasix Tablet PO 40 mg QAM VANI Administration Glucagon 1 mg 01/23/20 19:52 Glucagon For Inj IM PRN PRN Hypoglycemia Protocol Glucose 15 gm 01/23/20 19:52 Glutose 15 PO PRN PRN Hypoglycemia Protocol Dextrose 1,000 mls @ 100 mls/hr 01/23/20 19:52 Dextrose 5% 1,000 Ml IVPB PRN PRN Hypoglycemia Protocol Irbesartan 300 mg 01/24/20 09:00 01/26/20 07:58 Avapro PO 300 mg DAILY VANI Administration Metoprolol Tartrate 12.5 mg 01/24/20 09:00 01/26/20 07:58 Lopressor PO 12.5 mg Q12HR VANI Administration Multivitamins/Calcium 1 tablet 01/24/20 09:00 01/26/20 07:59 Therapeutic Multivitamins/Minerals PO 1 tablet
[2020-01-26 12:32] LABS: Glucose Point of Care 110 (65-105)
[2020-01-26 14:00] VITALS: BP 101/58; PULSE 104; RESP 20; TEMP 36; O2SAT 100
[2020-01-26 17:33] LABS: Glucose Point of Care 131 (65-105)
[2020-01-26 20:30] VITALS: PULSE 60
[2020-01-26 21:55] VITALS: BP 136/55; PULSE 50; RESP 20; TEMP 36.9; O2SAT 100
[2020-01-27 05:48] VITALS: BP 122/58; PULSE 73; RESP 20; TEMP 36.3; O2SAT 100
[2020-01-27 06:42] LABS: Glucose Point of Care 69 (65-105)
[2020-01-27 07:53] VITALS: PULSE 86
[2020-01-27] MEDS: predniSONE 20 MG TABLET PO (07:53)
[2020-01-27] MEDS: METOPROLOL TARTRATE 12.5 MG TABLET PO ×2 (07:53→20:26)
[2020-01-27] MEDS: APIXABAN 5 MG TABLET 10 MG PO ×2 (07:53→20:26)
[2020-01-27] MEDS: POTASSIUM CHLORIDE 10 MEQ TABLET.ER PO (07:54)
[2020-01-27] MEDS: FUROSEMIDE 40 MG TABLET PO (07:54)
[2020-01-27] MEDS: IRBESARTAN 150 MG TABLET 300 MG PO (07:54)
[2020-01-27] MEDS: ASCORBIC ACID 500 MG TABLET PO (07:54)
[2020-01-27] MEDS: VITAMIN B COMPLEX CAPSULE 1 CAP PO (07:54)
[2020-01-27] MEDS: CALCIUM CARBONATE (OSCAL) 500 MG TABLET PO (07:54)
[2020-01-27] MEDS: THERAPEUTIC MULTIVITAMINS/MINERALS TAB (*BKC) 1 TABLET PO (07:54)
[2020-01-27] MEDS: ROSUVASTATIN 10 MG TABLET PO (07:55)
[2020-01-27] MEDS: ASPIRIN 81 MG ENTERIC TABLET PO (07:55)
[2020-01-27 08:26] VITALS: PULSE 63; O2SAT 99
--- NOTE | 2020-01-27 10:18 | WPDNEURORHBP ---
Subjective Date/time seen: 01/27/20 10:18 Interval history: this 84-year-old woman with mild cognitive dysfunction is here because of generalized weakness and debility related to a fall with ecchymosis and bruising of the right side of the face she denies any new complaints like headache nausea vomiting chest pain shortness of breath she is being treated for polymyalgia rheumatica and is doing fairly well with current dose of 20 milligram of the prednisone and does not have the aches and pains which she had prior to the diagnosis of the polymyalgia rheumatica Review of Systems Review of Systems: All systems reviewed & are unremarkable except as noted in HPI and below Functional Status Ambulation Ability Ability to Ambulate 10 Feet: Independent Ability to Ambulate 50 Feet With 2 Turns: Independent Ability to Ambulate 150 Feet: Independent Ambulation Assistive Devices: Walker, Wheeled Transfers Ability Ability to Transfer In/Out of Chair: Independent Exam Const: General: comfortable and no acute distress HENMT: General nose exam: Normal nares present Mouth: Yes moist mucous membranes Other: the bruising and ecchymosis around the right side of the face is improving Eyes: General: appearance normal, both eyes and all related structures Neck: Neck: supple and no JVD Resp: Effort & Inspection: normal respiratory effort Auscultation: clear to auscultation bilaterally Cardio: Rate: regular rate Rhythm: regular rhythm GI: GI Palp: Yes Soft to palpation Auscultation: normal bowel sounds Skin: General skin exam: normal color and no rashes or lesions noted Neuro: Other: patient is awake alert well oriented time place and person except mild short-term memory deficit her generalized weakness is improving and she is engage in therapy and looking forward to be going home in the next couple of days to 1 of the relatives Extrem: General: normal to inspection Psych: Mental Status: mental status grossly normal Objective Data Vital Signs Vital Signs: Vital Signs - 24 hr 01/26/20 14:00 01/26/20 20:30 01/26/20 21:55 Temperature 36.0 C L 36.9 C Pulse Rate 104 H 60 50 L Pulse Rate [With Activity During Therapy Session] Respiratory Rate 20 20 Blood Pressure 101/58 L 136/55 L Pulse Oximetry 100 100 Pulse Oximetry [With Activity During Therapy Session] 01/27/20 05:48 01/27/20 07:53 01/27/20 08:26 Temperature 36.3 C L Pulse Rate 73 86 Pulse Rate [With Activity During Therapy Session] 63 Respiratory Rate 20 Blood Pressure 122/58 L Pulse Oximetry 100 Pulse Oximetry [With Activity During Therapy Session] 99 Intake/Output Intake/Output: Intake & Output 01/24/20 01/25/20 01/26/20 01/27/20 23:59 23:59 23:59 23:59 Intake Total 720 840 720 240 Balance 720 840 720 240 Meds/Results Medications: Active Medications Generic Name Dose Route Start Last Admin Trade Name Freq PRN Reason Stop Dose Admin Apixaban 5 mg 01/30/20 09:00 Eliquis PO Q12HR VANI Apixaban 10 mg 01/23/20 21:00 01/27/20 07:53 Eliquis PO 01/29/20 21:01 10 mg Q12HR VANI Administration Ascorbic Acid 500 mg 01/24/20 09:00 01/27/20 07:54 Vitamin C PO 500 mg DAILY VANI Administration Aspirin 81 mg 01/24/20 09:00 01/27/20 07:55 Aspirin Ec PO 81 mg DAILY VANI Administration Calcium Carbonate 500 mg 01/24/20 09:00 01/27/20 07:54 Oscal 500 Mg PO 500 mg DAILY VANI Administration Dextrose 12.5 gm 01/23/20 19:52 Dextrose 50% Syringe IV PUSH PRN PRN Hypoglycemia Protocol Furosemide 40 mg 01/24/20 09:00 01/27/20 07:54 Lasix Tablet PO 40 mg QAM VANI Administration Glucagon 1 mg 01/23/20 19:52 Glucagon For Inj IM PRN PRN Hypoglycemia Protocol Glucose 15 gm 01/23/20 19:52 Glutose 15 PO PRN PRN Hypoglycemia Protocol Dextrose 1,000 mls @ 100 mls/hr 01/23/20 19:52 Dextrose 5% 1,000 Ml IVPB PRN PRN
--- NOTE | 2020-01-27 12:28 | PCDIET ---
Nutrition Follow-Up Complete: Nutrition Diagnosis: Decreased sodium needs related to diastolic dysfunction and CKD as evidenced by EMR. Nutrition Goal: Patient to consume 75% of meals or greater. Goal met. Patient consuming 75-100% of most meals on diabetic diet which is appropriate. Last recorded weight is 75 kg. Recommend weekly weights. Bowel Motility: Last documented BM on 01/26/20, per nursing flowsheet. Labs Reviewed: 01/26/20 Glucose ranged from 69-131mg/dL. Meds Noted: Vitamin C, Oscal, Lasix, MVI/minerals, KCl, Prednisone, Januvia, Vitamin B Complex Additional Notes: Bruising noted to multiple areas, but no open sores. Will continue to monitor with same goal. Nutrition Monitoring and Evaluation: Follow up every 7 days.
[2020-01-27 14:00] VITALS: BP 101/47; PULSE 60; RESP 16; TEMP 37.1; O2SAT 100
[2020-01-27 20:26] VITALS: PULSE 66
[2020-01-27 22:00] VITALS: BP 135/55; PULSE 70; RESP 18; TEMP 36.6; O2SAT 97
[2020-01-28 06:00] VITALS: BP 134/52; PULSE 62; RESP 16; TEMP 36.9; O2SAT 99
[2020-01-28 06:34] LABS: Glucose Point of Care 76 (65-105)
[2020-01-28] MEDS: predniSONE 20 MG TABLET PO (09:08)
[2020-01-28] MEDS: ASPIRIN 81 MG ENTERIC TABLET PO (09:08)
[2020-01-28] MEDS: APIXABAN 5 MG TABLET 10 MG PO ×2 (09:08→20:02)
[2020-01-28] MEDS: ASCORBIC ACID 500 MG TABLET PO (09:08)
[2020-01-28 09:09] VITALS: PULSE 65
[2020-01-28] MEDS: FUROSEMIDE 40 MG TABLET PO (09:09)
[2020-01-28] MEDS: METOPROLOL TARTRATE 12.5 MG TABLET PO ×2 (09:09→20:03)
[2020-01-28] MEDS: IRBESARTAN 150 MG TABLET 300 MG PO (09:09)
[2020-01-28] MEDS: CALCIUM CARBONATE (OSCAL) 500 MG TABLET PO (09:09)
[2020-01-28] MEDS: ROSUVASTATIN 10 MG TABLET PO (09:10)
[2020-01-28] MEDS: VITAMIN B COMPLEX CAPSULE 1 CAP PO (09:10)
[2020-01-28] MEDS: THERAPEUTIC MULTIVITAMINS/MINERALS TAB (*BKC) 1 TABLET PO (09:10)
[2020-01-28] MEDS: POTASSIUM CHLORIDE 10 MEQ TABLET.ER PO (09:11)
--- NOTE | 2020-01-28 11:42 | WPDNEURORHBP ---
Subjective Date/time seen: 01/28/20 11:42 Interval history: this pleasant 84-year-old woman was admitted due to a fall and generalized weakness with underlying polymyalgia rheumatica for which has been followed by the primary care physician and on who is recommendation the prednisone has been cut to 20 milligram daily she is slated for discharge tomorrow to a family member with home health PT OT to continue and also follow-up with the primary care physician she denies any headache nausea vomiting chest pain shortness of breath fever chills sore throat and she is using walker diligently and walking quite a bit at this time Review of Systems Review of Systems: All systems reviewed & are unremarkable except as noted in HPI and below Functional Status Ambulation Ability Ability to Ambulate 10 Feet: Independent Ability to Ambulate 50 Feet With 2 Turns: Independent Ability to Ambulate 150 Feet: Independent Ambulation Assistive Devices: Walker, Wheeled Transfers Ability Ability to Transfer In/Out of Chair: Independent Exam Const: General: comfortable and no acute distress HENMT: General nose exam: Normal nares present Mouth: Yes moist mucous membranes Other: the ecchymosis and the bruising of the right side of the face is improving Eyes: General: appearance normal, both eyes and all related structures Neck: Neck: supple and no JVD Resp: Effort & Inspection: normal respiratory effort Auscultation: clear to auscultation bilaterally Cardio: Rate: regular rate Rhythm: regular rhythm GI: GI Palp: Yes Soft to palpation Auscultation: normal bowel sounds Skin: General skin exam: normal color and no rashes or lesions noted Neuro: Other: patient is awake alert well oriented her weakness which was generalized has significantly improved from the time he received her her aches and pains are also well controlled Extrem: General: normal to inspection Psych: Mental Status: mental status grossly normal Objective Data Vital Signs Vital Signs: Vital Signs - 24 hr 01/27/20 14:00 01/27/20 20:26 01/27/20 22:00 Temperature 37.1 C 36.6 C Pulse Rate 60 66 70 Respiratory Rate 16 18 Blood Pressure 101/47 L 135/55 L Pulse Oximetry 100 97 01/28/20 06:00 01/28/20 09:09 Temperature 36.9 C Pulse Rate 62 65 Respiratory Rate 16 Blood Pressure 134/52 L Pulse Oximetry 99 Intake/Output Intake/Output: Intake & Output 01/25/20 01/26/20 01/27/20 01/28/20 23:59 23:59 23:59 23:59 Intake Total 840 720 720 240 Balance 840 720 720 240 Meds/Results Medications: Active Medications Generic Name Dose Route Start Last Admin Trade Name Freq PRN Reason Stop Dose Admin Apixaban 5 mg 01/30/20 09:00 Eliquis PO Q12HR VANI Apixaban 10 mg 01/23/20 21:00 01/28/20 09:08 Eliquis PO 01/29/20 21:01 10 mg Q12HR VANI Administration Ascorbic Acid 500 mg 01/24/20 09:00 01/28/20 09:08 Vitamin C PO 500 mg DAILY VANI Administration Aspirin 81 mg 01/24/20 09:00 01/28/20 09:08 Aspirin Ec PO 81 mg DAILY VANI Administration Calcium Carbonate 500 mg 01/24/20 09:00 01/28/20 09:09 Oscal 500 Mg PO 500 mg DAILY VANI Administration Dextrose 12.5 gm 01/23/20 19:52 Dextrose 50% Syringe IV PUSH PRN PRN Hypoglycemia Protocol Furosemide 40 mg 01/24/20 09:00 01/28/20 09:09 Lasix Tablet PO 40 mg QAM VANI Administration Glucagon 1 mg 01/23/20 19:52 Glucagon For Inj IM PRN PRN Hypoglycemia Protocol Glucose 15 gm 01/23/20 19:52 Glutose 15 PO PRN PRN Hypoglycemia Protocol Dextrose 1,000 mls @ 100 mls/hr 01/23/20 19:52 Dextrose 5% 1,000 Ml IVPB PRN PRN Hypoglycemia Protocol Irbesartan 300 mg 01/24/20 09:00 01/28/20 09:09 Avapro PO 300 mg DAILY VANI Administration Metoprolol Tartrate 12.5 mg 01/24/20 09:00 01/28/20 09:09 Lopressor PO 12.5 mg Q12HR VANI Administration Multivitamins/C
[2020-01-28 14:00] VITALS: BP 106/45; PULSE 82; RESP 20; TEMP 35.8; O2SAT 100
[2020-01-28 20:03] VITALS: PULSE 82
[2020-01-28 20:56] VITALS: BP 110/55; PULSE 58; RESP 18; TEMP 36.3; O2SAT 100
[2020-01-29 05:40] VITALS: BP 108/60; PULSE 56; RESP 18; TEMP 35.6; O2SAT 100
[2020-01-29 06:37] LABS: Glucose Point of Care 78 (65-105)
[2020-01-29] MEDS: IRBESARTAN 150 MG TABLET 300 MG PO (08:18)
[2020-01-29] MEDS: ASPIRIN 81 MG ENTERIC TABLET PO (08:19)
[2020-01-29] MEDS: APIXABAN 5 MG TABLET 10 MG PO (08:19)
[2020-01-29 08:20] VITALS: PULSE 56
[2020-01-29] MEDS: THERAPEUTIC MULTIVITAMINS/MINERALS TAB (*BKC) 1 TABLET PO (08:20)
[2020-01-29] MEDS: ASCORBIC ACID 500 MG TABLET PO (08:20)
[2020-01-29] MEDS: METOPROLOL TARTRATE 12.5 MG TABLET PO (08:20)
[2020-01-29] MEDS: POTASSIUM CHLORIDE 10 MEQ TABLET.ER PO (08:21)
[2020-01-29] MEDS: predniSONE 20 MG TABLET PO (08:21)
[2020-01-29] MEDS: VITAMIN B COMPLEX CAPSULE 1 CAP PO (08:21)
[2020-01-29] MEDS: CALCIUM CARBONATE (OSCAL) 500 MG TABLET PO (08:21)
[2020-01-29] MEDS: FUROSEMIDE 40 MG TABLET PO (08:21)
[2020-01-29] MEDS: ROSUVASTATIN 10 MG TABLET PO (08:21)
--- NOTE | 2020-02-02 10:51 | PM.DS ---
DS: Admitting Diagnosis Admitting Diagnosis Admitting Diagnosis: Generalized Weakness DS: Discharge Diagnosis Discharge Diagnosis (1) Thrombocytopenia: Code(s): D69.6 - Thrombocytopenia, unspecified Status: Acute (2) Hyperkalemia: Code(s): E87.5 - Hyperkalemia Status: Acute (3) Acute renal failure superimposed on stage 3 chronic kidney disease: Qualifiers: Acute renal failure type: unspecified Qualified Code(s): N17.9 - Acute kidney failure, unspecified; N18.3 - Chronic kidney disease, stage 3 (moderate) Code(s): N17.9 - Acute kidney failure, unspecified; N18.3 - Chronic kidney disease, stage 3 (moderate) Status: Acute (4) Acute deep vein thrombosis (DVT) of right lower extremity: Qualifiers: Affected thrombotic vein of extremity: femoral Qualified Code(s): I82.411 - Acute embolism and thrombosis of right femoral vein Code(s): I82.401 - Acute embolism and thrombosis of unspecified deep veins of right lower extremity Status: Acute (5) Pain and swelling of right lower extremity: Code(s): M79.604 - Pain in right leg; M79.89 - Other specified soft tissue disorders Status: Acute (6) Fall: Qualifiers: Encounter type: initial encounter Qualified Code(s): W19.XXXA - Unspecified fall, initial encounter Code(s): W19.XXXA - Unspecified fall, initial encounter Status: Acute (7) Hip pain, right: Code(s): M25.551 - Pain in right hip Status: Acute (8) Thrush: Code(s): B37.0 - Candidal stomatitis Status: Acute (9) BMI 28.0-28.9,adult: Code(s): Z68.28 - Body mass index (BMI) 28.0-28.9, adult Status: Acute (10) Hospital discharge follow-up: Code(s): Z09 - Encounter for follow-up examination after completed treatment for conditions other than malignant neoplasm Status: Acute (11) UTI (urinary tract infection): Code(s): N39.0 - Urinary tract infection, site not specified Status: Acute (12) Leukocytosis: Code(s): D72.829 - Elevated white blood cell count, unspecified Status: Resolved (13) Chronic kidney disease, stage 3: Code(s): N18.3 - Chronic kidney disease, stage 3 (moderate) Status: Chronic (14) Generalized weakness: Code(s): R53.1 - Weakness Status: Acute (15) Polymyalgia rheumatica: Code(s): M35.3 - Polymyalgia rheumatica Status: Acute (16) Type 2 diabetes mellitus: Qualifiers: Diabetes mellitus roasterman insulin use: without roasterman use Code(s): E11.9 - Type 2 diabetes mellitus without complications Status: Acute (17) Diastolic dysfunction: Code(s): I51.89 - Other ill-defined heart diseases Status: Acute (18) BMI 29.0-29.9,adult: Code(s): Z68.29 - Body mass index (BMI) 29.0-29.9, adult Status: Acute (19) Follow up: Code(s): Z09 - Encounter for follow-up examination after completed treatment for conditions other than malignant neoplasm Status: Acute (20) BMI 30.0-30.9,adult: Code(s): Z68.30 - Body mass index (BMI) 30.0-30.9, adult Status: Acute (21) Abnormal finding of blood chemistry, unspecified: Code(s): R79.9 - Abnormal finding of blood chemistry, unspecified Status: Acute (22) Encounter for routine adult health examination without abnormal findings: Code(s): Z00.00 - Encounter for general adult medical examination without abnormal findings Status: Acute (23) DM type 2 (diabetes mellitus, type 2): Qualifiers: Diabetes mellitus roasterman insulin use: without long-term use Diabetes mellitus complication status: without complication Qualified Code(s): E11.9 - Type 2 diabetes mellitus without complications Code(s): E11.9 - Type 2 diabetes mellitus without complications Status: Acute (24) Hyperlipidemia: Qualifiers: Hyperlipidemia type: mixed hyp
== END 2020-01-29 13:12 | disposition home health service (06) | DRG 301 ==
PROVIDERS: Admitting Provider Psychiatry & Neurology Neurology; PCP Internal Medicine; Visit Provider Psychiatry & Neurology Neurology
DX: I82.411 Acute embolism and thrombosis of right femoral vein (principal); S05.11XD Contusion of eyeball and orbital tissues, right eye, subsequent encounter; R53.1 Weakness; W19.XXXD Unspecified fall, subsequent encounter; I12.9 Hypertensive chronic kidney disease with stage 1 through stage 4 chronic kidney disease, or unspecified chronic kidney disease; D69.6 Thrombocytopenia, unspecified; E78.5 Hyperlipidemia, unspecified; E11.22 Type 2 diabetes mellitus with diabetic chronic kidney disease; I48.91 Unspecified atrial fibrillation; I08.3 Combined rheumatic disorders of mitral, aortic and tricuspid valves; M15.9 Polyosteoarthritis, unspecified; M35.3 Polymyalgia rheumatica; N18.3 Chronic kidney disease, stage 3 (moderate); R41.3 Other amnesia; R00.1 Bradycardia, unspecified; Z96.642 Presence of left artificial hip joint; Z79.4 Long term (current) use of insulin; Z23 Encounter for immunization; Z79.899 Other long term (current) drug therapy
CPT/HCPCS: 36415; 80048; 80053; 82550; 85025; 85027; 85055; 90471; 90686; 96372; 97110; 97116; 97161; 97165; 97530; 97535; A9270; G0008; G0378; J1650; J7040; J7512

== ENCOUNTER 2020-02-07 11:40 | Outpatient (CLI) | payer MEDICARE, SELFPAY ==
[2020-02-07 12:10] LABS: Basophils Percent Auto 0.3 % (0.2-1.2); Eosinophils Percent Auto 0.1 % (0-4.4); Hematocrit 32.1 % (37.0-47.0); Hemoglobin 10.1 g/dL (12.0-15.0); Immature Granulocyte Absolute 0.12 K/mm3 (0.00-0.031); Lymphocytes Absolute Auto 0.53 K/mm3 (0.9-3.2); Lymphocytes Percent Auto 4.5 % (18.3-44.2); Mean Corpuscular HGB Conc 31.5 g/dl (32-36); Mean Corpuscular Hemoglobin 32.4 pg (26-34); Mean Corpuscular Volume 102.9 fl (80-100); Mean Platelet Volume 11.2 fl (7.4-10.4); Monocytes Absolute Auto 0.4 K/mm3 (0.1-0.6); Monocytes Percent Auto 3.3 % (2.6-8.5); Neutrophils Absolute Auto 10.8 K/mm3 (1.3-6.7); Neutrophils Percent Auto 90.8 % (45.5-73.1); Platelet Count Result 169 k/mm3 (150-375); Red Blood Count 3.12 M/mm3 (4.2-5.4); Red Cell Distribution Width 15.3 % (11.5-14.5); White Blood Count 11.8 K/mm3 (4.5-10.0)
[2020-02-07 12:25] LABS: Anion Gap 5 mmol/L (8-16); Blood Urea Nitrogen 29 mg/dL (7-17); CRP 0.6 mg/dL (<1.0); Calcium 9.6 mg/dL (8.4-10.2); Carbon Dioxide 26 mmol/L (22-30); Chloride 104 mmol/L (98-107); Estimated Glomerular Filt Rate 31; Glucose 125 mg/dL (65-105); Potassium 4.8 mmol/L (3.4-5.0); Sodium 135 mmol/L (137-145)
[2020-02-07 13:32] LABS: Erythrocyte Sedimentation Rate 34 mm/hr (0-20)
== END 2020-02-07 11:41 | disposition home or self-care (01) ==
LOC: ANHLAB 11:45
PROVIDERS: PCP Internal Medicine; Visit Provider Internal Medicine
DX: M35.3 Polymyalgia rheumatica (principal); Z79.899 Other long term (current) drug therapy
CPT/HCPCS: 36415; 80048; 85025; 85652; 86140

== ENCOUNTER 2020-04-27 08:10 | Outpatient (CLI) | payer MEDICARE, SELFPAY ==
[2020-04-27 08:37] LABS: Basophils Absolute Auto 0.1 K/mm3 (0.0-0.1); Basophils Percent Auto 1.1 % (0.2-1.2); Eosinophils Absolute Auto 0.2 K/mm3 (0-0.3); Hematocrit 33.3 % (37.0-47.0); Hemoglobin 10.7 g/dL (12.0-15.0); Immature Granulocyte Absolute 0.03 K/mm3 (0.00-0.031); Immature Granulocyte Percent A 0.4 % (0-0.5); Lymphocytes Absolute Auto 0.89 K/mm3 (0.9-3.2); Lymphocytes Percent Auto 10.7 % (18.3-44.2); Mean Corpuscular HGB Conc 32.1 g/dl (32-36); Mean Corpuscular Hemoglobin 32.4 pg (26-34); Mean Corpuscular Volume 100.9 fl (80-100); Mean Platelet Volume 10.8 fl (7.4-10.4); Monocytes Absolute Auto 0.8 K/mm3 (0.1-0.6); Monocytes Percent Auto 9.5 % (2.6-8.5); Neutrophils Absolute Auto 6.4 K/mm3 (1.3-6.7); Neutrophils Percent Auto 76.3 % (45.5-73.1); Platelet Count Result 189 k/mm3 (150-375); Red Cell Distribution Width 13.8 % (11.5-14.5); White Blood Count 8.3 K/mm3 (4.5-10.0)
[2020-04-27 08:51] LABS: Anion Gap 7 mmol/L (8-16); Blood Urea Nitrogen 22 mg/dL (7-17); CRP 0.7 mg/dL (<1.0); Calcium 10.8 mg/dL (8.4-10.2); Carbon Dioxide 26 mmol/L (22-30); Chloride 105 mmol/L (98-107); Cholesterol 147 mg/dL (0-200); Estimated Glomerular Filt Rate 22; Glucose 117 mg/dL (65-105); HDL Direct 61 mg/dL; Potassium 4.4 mmol/L (3.4-5.0); Sodium 138 mmol/L (137-145); Triglycerides 145 mg/dL (<150)
[2020-04-27 08:56] LABS: Hemoglobin A1C 5.1 % (<5.7)
[2020-04-27 08:59] LABS: LDL Cholesterol Direct 48 mg/dL
[2020-04-27 09:29] LABS: Erythrocyte Sedimentation Rate 77 mm/hr (0-20)
== END 2020-04-27 08:11 | disposition home or self-care (01) ==
LOC: ANHLAB 08:13
PROVIDERS: PCP Internal Medicine; Visit Provider Internal Medicine
DX: M35.3 Polymyalgia rheumatica (principal); E11.9 Type 2 diabetes mellitus without complications; E78.5 Hyperlipidemia, unspecified; I10 Essential (primary) hypertension; Z79.899 Other long term (current) drug therapy
CPT/HCPCS: 36415; 80048; 80061; 83036; 84443; 85025; 85652; 86140

== ENCOUNTER 2020-05-02 14:27 | Outpatient (CLI) | payer MEDICARE, SELFPAY ==
[2020-05-02 15:03] LABS: Basophils Absolute Auto 0.1 K/mm3 (0.0-0.1); Basophils Percent Auto 0.7 % (0.2-1.2); Eosinophils Absolute Auto 0.2 K/mm3 (0-0.3); Eosinophils Percent Auto 2.3 % (0-4.4); Hematocrit 34.9 % (37.0-47.0); Hemoglobin 11.1 g/dL (12.0-15.0); Immature Granulocyte Absolute 0.02 K/mm3 (0.00-0.031); Immature Granulocyte Percent A 0.3 % (0-0.5); Lymphocytes Absolute Auto 1.28 K/mm3 (0.9-3.2); Lymphocytes Percent Auto 17.4 % (18.3-44.2); Mean Corpuscular HGB Conc 31.8 g/dl (32-36); Mean Corpuscular Hemoglobin 32.1 pg (26-34); Mean Corpuscular Volume 100.9 fl (80-100); Mean Platelet Volume 11.1 fl (7.4-10.4); Monocytes Absolute Auto 0.9 K/mm3 (0.1-0.6); Monocytes Percent Auto 12.8 % (2.6-8.5); Neutrophils Absolute Auto 4.9 K/mm3 (1.3-6.7); Neutrophils Percent Auto 66.5 % (45.5-73.1); Platelet Count Result 187 k/mm3 (150-375); Red Blood Count 3.46 M/mm3 (4.2-5.4); White Blood Count 7.4 K/mm3 (4.5-10.0)
[2020-05-02 15:12] LABS: Add Urine Microscopic? YES; Amorphous Sediment Urine Few; Appearance Urine Cloudy (Clear); Bilirubin Urine Negative (Negative); Blood Urine Negative (Negative); Color Urine Amber (Yellow); Glucose Urine UA Negative (Negative); Ketones Urine Negative (Negative); Leukocyte Esterase Ur Negative LEU/UL (NEGATIVE); Mucus Urine Rare /lpf; Nitrate Urine Negative (Negative); Protein Urine 1+ mg/dL (Negative); RBC Urine 0-2 /hpf (0-2); Specific Grav Ur 1.018 (1.001-1.035); Squamous Epithelial Cell Urine Occasional /hpf (Few); Urobilinogen Urine Negative mg/dL (<2.0); WBC Urine 0-3 /hpf (0-3)
[2020-05-02 15:36] LABS: Alanine Aminotransferase 15 U/L (4-35); Alkaline Phosphatase 66 U/L (38-126); Anion Gap 8 mmol/L (8-16); Aspartate Amino Transferase 32 U/L (14-36); Bilirubin,Total 0.5 mg/dL (0.2-1.3); Blood Urea Nitrogen 25 mg/dL (7-17); CRP < 0.5 mg/dL (<1.0); Calcium 11.2 mg/dL (8.4-10.2); Carbon Dioxide 25 mmol/L (22-30); Chloride 104 mmol/L (98-107); Estimated Glomerular Filt Rate 27; Glucose 98 mg/dL (65-105); Potassium 4.5 mmol/L (3.4-5.0); Sodium 137 mmol/L (137-145)
[2020-05-02 16:17] LABS: Erythrocyte Sedimentation Rate 65 mm/hr (0-20)
== END 2020-05-02 14:28 | disposition home or self-care (01) ==
PROVIDERS: PCP Internal Medicine; Visit Provider Internal Medicine
DX: R63.4 Abnormal weight loss (principal); M35.3 Polymyalgia rheumatica; Z79.899 Other long term (current) drug therapy
CPT/HCPCS: 36415; 80053; 81001; 85025; 85652; 86140

== ENCOUNTER 2020-05-04 15:29 | Outpatient (CLI) | payer MEDICARE, SELFPAY ==
--- NOTE | ~2020-05-04 | CT_ITS ---
EXAMINATION: CT chest abdomen pelvis wo con EXAM DATE: 05/04/2020 15:56 INDICATION: R63.4 - Abnormal weight loss . TECHNIQUE: Spiral CT of the chest, abdomen and pelvis was performed without contrast. Axial, engel l and sagittal images were reviewed. Coronal maximum intensity pixel images of chest reviewed. The dose-length product (DLP) for this examination was 464.81 mGy-cm. The exposure was tailored accordin g to patient size (auto mA exposure control), and iterative reconstruction (ASIR) was used as additio nal dose reduction technique. There is no prior study for comparison. FINDINGS: CHEST: Small amount of basilar postinfectious residua. There is mild emphysema. There are no pleura l or pericardial effusions. Tracheobronchial tree is patent. There is no mediastinal, hilar or ax illary lymphadenopathy. There is no pneumothorax. Heart normal in size. There is mild to modera te coronary arterial calcification, arterial sclerosis. The interventricular septum is perceptible, s uggesting patient is anemic. ABDOMEN PELVIS: The liver, spleen, adrenal glands and pancreas are unremarkable. Gallbladder is unre markable. No biliary obstruction. There is no nephrolithiasis or hydronephrosis. There are bilatera l renal cysts, largest on the right measuring 7.7 cm. The uterus is unremarkable. The bladder is u nremarkable. There is no retroperitoneal or pelvic lymphadenopathy. There is moderate scattered ar teriosclerotic disease. The appendix is normal. There is mild sigmoid colonic diverticulosis. There is no adjacent inflammat ory change to suggest diverticulitis. The stomach and small bowel are unremarkable. There is expecte d amount of colonic stool. No free intraperitoneal gas. There are chronic bilateral sacral insuff iciency fractures. There is a left hip replacement. There are no osteoblastic or osteolytic lesions i dentified. IMPRESSION: 1. Mild emphysema. 2. Renal cysts. 3. Mild sigmoid diverticulosis. 4. Chronic sacral insufficiency fractures. Reviewed, dictated and finalized at location A. GENETICS TECHNOLOGIST
== END 2020-05-04 15:30 | disposition home or self-care (01) ==
PROVIDERS: PCP Internal Medicine; Visit Provider Internal Medicine
DX: R63.4 Abnormal weight loss (principal); J43.9 Emphysema, unspecified; N28.1 Cyst of kidney, acquired; K57.30 Diverticulosis of large intestine without perforation or abscess without bleeding
CPT/HCPCS: 71250; 74176

== ENCOUNTER 2020-05-10 14:49 | Outpatient (CLI) | payer MEDICARE, SELFPAY ==
[2020-05-10 17:23] LABS: Parathyroid Intact 30.3 pg/mL (7.5-53.5)
[2020-05-10 17:29] LABS: Vitamin D 25 Hydroxy 53.8 ng/mL
== END 2020-05-10 14:50 | disposition home or self-care (01) ==
LOC: ANHLAB 14:51
PROVIDERS: PCP Internal Medicine; Visit Provider Internal Medicine
DX: E83.52 Hypercalcemia (principal)
CPT/HCPCS: 36415; 82306; 83970

== ENCOUNTER 2020-07-11 09:43 | Outpatient (CLI) | payer MEDICARE, SELFPAY ==
[2020-07-11 10:19] LABS: Anion Gap 7 mmol/L (8-16); Blood Urea Nitrogen 28 mg/dL (7-17); Calcium 10.5 mg/dL (8.4-10.2); Carbon Dioxide 30 mmol/L (22-30); Chloride 104 mmol/L (98-107); Estimated Glomerular Filt Rate 33; Glucose 138 mg/dL (65-105); Potassium 4.1 mmol/L (3.4-5.0); Sodium 141 mmol/L (137-145)
[2020-07-11 10:56] LABS: Erythrocyte Sedimentation Rate 46 mm/hr (0-20)
== END 2020-07-11 09:44 | disposition home or self-care (01) ==
PROVIDERS: PCP Internal Medicine; Visit Provider Internal Medicine
DX: I10 Essential (primary) hypertension (principal); Z79.899 Other long term (current) drug therapy; M35.3 Polymyalgia rheumatica
CPT/HCPCS: 36415; 80048; 85652; 86140

== ENCOUNTER 2020-09-12 09:55 | Outpatient (CLI) | payer MEDICARE, SELFPAY ==
[2020-09-12 10:13] LABS: Basophils Absolute Auto 0.1 K/mm3 (0.0-0.1); Basophils Percent Auto 0.5 % (0.2-1.2); Eosinophils Absolute Auto 0.1 K/mm3 (0-0.3); Eosinophils Percent Auto 0.4 % (0-4.4); Hematocrit 36.5 % (37.0-47.0); Hemoglobin 11.4 g/dL (12.0-15.0); Immature Granulocyte Absolute 0.16 K/mm3 (0.00-0.031); Lymphocytes Absolute Auto 1.14 K/mm3 (0.9-3.2); Lymphocytes Percent Auto 6.8 % (18.3-44.2); Mean Corpuscular HGB Conc 31.2 g/dl (32-36); Mean Corpuscular Volume 102.5 fl (80-100); Monocytes Percent Auto 5.7 % (2.6-8.5); Neutrophils Absolute Auto 14.3 K/mm3 (1.3-6.7); Neutrophils Percent Auto 85.6 % (45.5-73.1); Platelet Count Result 186 k/mm3 (150-375); Red Blood Count 3.56 M/mm3 (4.2-5.4); Red Cell Distribution Width 14.4 % (11.5-14.5); White Blood Count 16.7 K/mm3 (4.5-10.0)
[2020-09-12 10:26] LABS: Hemoglobin A1C 5.8 % (<5.7)
[2020-09-12 10:27] LABS: Anion Gap 6 mmol/L (8-16); Blood Urea Nitrogen 32 mg/dL (7-17); CRP 0.6 mg/dL (<1.0); Carbon Dioxide 26 mmol/L (22-30); Chloride 106 mmol/L (98-107); Cholesterol 151 mg/dL (0-200); Estimated Glomerular Filt Rate 33; Glucose 117 mg/dL (65-105); HDL Direct 92 mg/dL; Potassium 4.5 mmol/L (3.4-5.0); Sodium 138 mmol/L (137-145); Triglycerides 117 mg/dL (<150)
[2020-09-12 10:36] LABS: LDL Cholesterol Direct 41 mg/dL
[2020-09-12 13:04] LABS: Erythrocyte Sedimentation Rate 23 mm/hr (0-20)
[2020-09-14 17:58] LABS: Folic Acid > 20.0 ng/mL (2.76->20)
== END 2020-09-12 09:56 | disposition home or self-care (01) ==
LOC: ANHLAB 09-13 09:15
PROVIDERS: PCP Internal Medicine; Visit Provider Internal Medicine
DX: I10 Essential (primary) hypertension (principal); E11.9 Type 2 diabetes mellitus without complications; M35.3 Polymyalgia rheumatica; E78.2 Mixed hyperlipidemia; D69.6 Thrombocytopenia, unspecified; Z79.899 Other long term (current) drug therapy
CPT/HCPCS: 36415; 80048; 80061; 82607; 82746; 83036; 85025; 85652; 86140

== ENCOUNTER 2020-11-14 09:08 | Outpatient (CLI) | payer MEDICARE, SELFPAY ==
[2020-11-14 09:39] LABS: Basophils Absolute Auto 0.1 K/mm3 (0.0-0.1); Basophils Percent Auto 0.6 % (0.2-1.2); Eosinophils Absolute Auto 0.2 K/mm3 (0-0.3); Eosinophils Percent Auto 1.5 % (0-4.4); Hematocrit 37.3 % (37.0-47.0); Hemoglobin 11.7 g/dL (12.0-15.0); Immature Granulocyte Absolute 0.07 K/mm3 (0.00-0.031); Immature Granulocyte Percent A 0.6 % (0-0.5); Lymphocytes Absolute Auto 0.92 K/mm3 (0.9-3.2); Lymphocytes Percent Auto 7.7 % (18.3-44.2); Mean Corpuscular HGB Conc 31.4 g/dl (32-36); Mean Corpuscular Hemoglobin 32.1 pg (26-34); Mean Corpuscular Volume 102.5 fl (80-100); Mean Platelet Volume 11.6 fl (7.4-10.4); Monocytes Absolute Auto 0.9 K/mm3 (0.1-0.6); Monocytes Percent Auto 7.6 % (2.6-8.5); Neutrophils Absolute Auto 9.8 K/mm3 (1.3-6.7); Platelet Count Result 165 k/mm3 (150-375); Red Blood Count 3.64 M/mm3 (4.2-5.4); White Blood Count 11.9 K/mm3 (4.5-10.0)
[2020-11-14 10:15] LABS: Anion Gap 8 mmol/L (8-16); Blood Urea Nitrogen 26 mg/dL (7-17); CRP 0.9 mg/dL (<1.0); Calcium 10.5 mg/dL (8.4-10.2); Carbon Dioxide 25 mmol/L (22-30); Chloride 109 mmol/L (98-107); Estimated Glomerular Filt Rate 33; Glucose 101 mg/dL (65-105); Potassium 4.3 mmol/L (3.4-5.0); Sodium 142 mmol/L (137-145)
[2020-11-14 11:44] LABS: Erythrocyte Sedimentation Rate 35 mm/hr (0-20)
== END 2020-11-14 09:09 | disposition home or self-care (01) ==
PROVIDERS: PCP Internal Medicine; Visit Provider Internal Medicine
DX: I10 Essential (primary) hypertension (principal); M35.3 Polymyalgia rheumatica
CPT/HCPCS: 36415; 80048; 85025; 85652; 86140

== ENCOUNTER 2021-01-16 12:00 | Outpatient (CLI) | payer MEDICARE, SELFPAY ==
[2021-01-16 12:49] LABS: Basophils Absolute Auto 0.1 K/mm3 (0.0-0.1); Basophils Percent Auto 0.5 % (0.2-1.2); Eosinophils Absolute Auto 0.3 K/mm3 (0-0.3); Eosinophils Percent Auto 3.1 % (0-4.4); Hematocrit 33.5 % (37.0-47.0); Hemoglobin 10.3 g/dL (12.0-15.0); Immature Granulocyte Absolute 0.05 K/mm3 (0.00-0.031); Immature Granulocyte Percent A 0.5 % (0-0.5); Lymphocytes Absolute Auto 1.15 K/mm3 (0.9-3.2); Lymphocytes Percent Auto 11.7 % (18.3-44.2); Mean Corpuscular HGB Conc 30.7 g/dl (32-36); Mean Corpuscular Hemoglobin 30.8 pg (26-34); Mean Corpuscular Volume 100.3 fl (80-100); Mean Platelet Volume 11.7 fl (7.4-10.4); Monocytes Absolute Auto 0.9 K/mm3 (0.1-0.6); Monocytes Percent Auto 9.5 % (2.6-8.5); Neutrophils Absolute Auto 7.3 K/mm3 (1.3-6.7); Neutrophils Percent Auto 74.7 % (45.5-73.1); Platelet Count Result 168 k/mm3 (150-375); Red Blood Count 3.34 M/mm3 (4.2-5.4); Red Cell Distribution Width 13.3 % (11.5-14.5); White Blood Count 9.8 K/mm3 (4.5-10.0)
[2021-01-16 13:13] LABS: Anion Gap 7 mmol/L (8-16); Blood Urea Nitrogen 27 mg/dL (7-17); CRP < 0.5 mg/dL (<1.0); Calcium 10.1 mg/dL (8.4-10.2); Carbon Dioxide 25 mmol/L (22-30); Chloride 108 mmol/L (98-107); Estimated Glomerular Filt Rate 39; Glucose 101 mg/dL (65-110); Potassium 4.5 mmol/L (3.4-5.0); Sodium 140 mmol/L (137-145)
[2021-01-16 14:39] LABS: Erythrocyte Sedimentation Rate 44 mm/hr (0-20)
== END 2021-01-16 12:01 | disposition home or self-care (01) ==
PROVIDERS: PCP Internal Medicine; Visit Provider Internal Medicine
DX: M53.3 Sacrococcygeal disorders, not elsewhere classified (principal); I10 Essential (primary) hypertension
CPT/HCPCS: 36415; 80048; 85025; 85652; 86140

== ENCOUNTER 2021-03-06 11:34 | Outpatient (CLI) | payer MEDICARE, SELFPAY ==
[2021-03-06 12:05] LABS: Basophils Absolute Auto 0.1 K/mm3 (0.0-0.1); Basophils Percent Auto 0.5 % (0.2-1.2); Eosinophils Absolute Auto 0.6 K/mm3 (0-0.3); Eosinophils Percent Auto 5.5 % (0-4.4); Hematocrit 34.2 % (37.0-47.0); Hemoglobin 10.7 g/dL (12.0-15.0); Immature Granulocyte Absolute 0.03 K/mm3 (0.00-0.031); Immature Granulocyte Percent A 0.3 % (0-0.5); Lymphocytes Percent Auto 10.3 % (18.3-44.2); Mean Corpuscular HGB Conc 31.3 g/dl (32-36); Mean Corpuscular Hemoglobin 31.7 pg (26-34); Mean Corpuscular Volume 101.2 fl (80-100); Mean Platelet Volume 11.8 fl (7.4-10.4); Monocytes Absolute Auto 1.1 K/mm3 (0.1-0.6); Monocytes Percent Auto 9.3 % (2.6-8.5); Neutrophils Absolute Auto 8.6 K/mm3 (1.3-6.7); Neutrophils Percent Auto 74.1 % (45.5-73.1); Platelet Count Result 169 k/mm3 (150-375); Red Blood Count 3.38 M/mm3 (4.2-5.4); Red Cell Distribution Width 13.3 % (11.5-14.5); White Blood Count 11.7 K/mm3 (4.5-10.0)
[2021-03-06 12:14] LABS: Hemoglobin A1C 5.4 % (<5.7)
[2021-03-06 12:18] LABS: Anion Gap 9 mmol/L (8-16); Blood Urea Nitrogen 23 mg/dL (7-17); CRP 2.5 mg/dL (<1.0); Calcium 9.9 mg/dL (8.4-10.2); Carbon Dioxide 26 mmol/L (22-30); Chloride 105 mmol/L (98-107); Cholesterol 126 mg/dL (0-200); Estimated Glomerular Filt Rate 43; Glucose 104 mg/dL (65-110); HDL Direct 65 mg/dL; Potassium 4.2 mmol/L (3.4-5.0); Sodium 140 mmol/L (137-145); Triglycerides 98 mg/dL (<150)
[2021-03-06 12:27] LABS: LDL Cholesterol Direct 42 mg/dL
[2021-03-06 12:35] LABS: Erythrocyte Sedimentation Rate 31 mm/hr (0-20)
[2021-03-06 12:45] LABS: Thyroid Stimulating Hormone 0.431 uIU/mL (0.465-4.680)
== END 2021-03-06 11:35 | disposition home or self-care (01) ==
PROVIDERS: PCP Internal Medicine; Visit Provider Internal Medicine
DX: M35.3 Polymyalgia rheumatica (principal); I10 Essential (primary) hypertension; Z79.899 Other long term (current) drug therapy; E11.9 Type 2 diabetes mellitus without complications; E78.2 Mixed hyperlipidemia
CPT/HCPCS: 36415; 80048; 80061; 83036; 84439; 84443; 85025; 85652; 86140

== ENCOUNTER 2021-07-16 10:47 | Outpatient (CLI) | payer MEDICARE, SELFPAY ==
[2021-07-16 11:09] LABS: Basophils Absolute Auto 0.1 K/mm3 (0.0-0.1); Basophils Percent Auto 0.6 % (0.2-1.2); Eosinophils Absolute Auto 0.4 K/mm3 (0-0.3); Eosinophils Percent Auto 4.1 % (0-4.4); Hematocrit 37.7 % (37.0-47.0); Hemoglobin 11.9 g/dL (12.0-15.0); Immature Granulocyte Absolute 0.03 K/mm3 (0.00-0.031); Immature Granulocyte Percent A 0.3 % (0-0.5); Lymphocytes Absolute Auto 1.13 K/mm3 (0.9-3.2); Lymphocytes Percent Auto 12.2 % (18.3-44.2); Mean Corpuscular HGB Conc 31.6 g/dl (32-36); Mean Corpuscular Hemoglobin 31.2 pg (26-34); Mean Corpuscular Volume 98.7 fl (80-100); Mean Platelet Volume 11.7 fl (7.4-10.4); Monocytes Absolute Auto 0.9 K/mm3 (0.1-0.6); Monocytes Percent Auto 9.1 % (2.6-8.5); Neutrophils Absolute Auto 6.9 K/mm3 (1.3-6.7); Neutrophils Percent Auto 73.7 % (45.5-73.1); Platelet Count Result 162 k/mm3 (150-375); Red Blood Count 3.82 M/mm3 (4.2-5.4); Red Cell Distribution Width 14.4 % (11.5-14.5); White Blood Count 9.3 K/mm3 (4.5-10.0)
[2021-07-16 11:24] LABS: Anion Gap 6 mmol/L (8-16); Blood Urea Nitrogen 30 mg/dL (7-17); CRP < 0.5 mg/dL (<1.0); Calcium 9.9 mg/dL (8.4-10.2); Carbon Dioxide 27 mmol/L (22-30); Chloride 103 mmol/L (98-107); Cholesterol 132 mg/dL (0-200); Estimated Glomerular Filt Rate 39; Glucose 93 mg/dL (65-110); HDL Direct 61 mg/dL; Potassium 4.4 mmol/L (3.4-5.0); Sodium 136 mmol/L (137-145); Triglycerides 75 mg/dL (<150)
[2021-07-16 11:30] LABS: Hemoglobin A1C 5.3 % (<5.7)
[2021-07-16 11:33] LABS: LDL Cholesterol Direct 47 mg/dL
[2021-07-16 12:47] LABS: Erythrocyte Sedimentation Rate 22 mm/hr (0-20)
== END 2021-07-16 10:48 | disposition home or self-care (01) ==
PROVIDERS: PCP Internal Medicine; Visit Provider Internal Medicine
DX: E11.9 Type 2 diabetes mellitus without complications (principal); Z79.899 Other long term (current) drug therapy; M35.3 Polymyalgia rheumatica; I10 Essential (primary) hypertension; E78.2 Mixed hyperlipidemia
CPT/HCPCS: 36415; 80048; 80061; 83036; 84439; 84443; 85025; 85652; 86140

== ENCOUNTER 2021-11-28 11:39 | Outpatient (CLI) | payer MEDICARE, SELFPAY ==
[2021-11-28 12:47] LABS: CRP < 0.5 mg/dL (<1.0); Cholesterol 145 mg/dL (0-200); HDL Direct 55 mg/dL; Triglycerides 98 mg/dL (<150)
[2021-11-28 12:55] LABS: LDL Cholesterol Direct 46 mg/dL
[2021-11-28 13:21] LABS: Erythrocyte Sedimentation Rate 28 mm/hr (0-20)
[2021-11-28 20:09] LABS: Hemoglobin A1C 5.1 % (<5.7)
== END 2021-11-28 11:40 | disposition home or self-care (01) ==
LOC: ANHLAB 11:42
PROVIDERS: PCP Internal Medicine; Visit Provider Internal Medicine
DX: E55.9 Vitamin D deficiency, unspecified (principal); E78.2 Mixed hyperlipidemia; E11.9 Type 2 diabetes mellitus without complications; M35.3 Polymyalgia rheumatica
CPT/HCPCS: 36415; 80061; 82306; 83036; 85652; 86140

== ENCOUNTER 2022-04-09 11:20 | Outpatient (CLI) | payer MEDICARE, SELFPAY ==
[2022-04-09 12:00] LABS: Anion Gap 9 mmol/L (8-16); Blood Urea Nitrogen 27 mg/dL (7-17); Calcium 9.8 mg/dL (8.4-10.2); Carbon Dioxide 27 mmol/L (22-30); Chloride 104 mmol/L (98-107); Cholesterol 136 mg/dL (0-200); Estimated Glomerular Filt Rate 39; Glucose 117 mg/dL (65-110); HDL Direct 60 mg/dL; Potassium 4.2 mmol/L (3.4-5.0); Sodium 140 mmol/L (137-145); Triglycerides 119 mg/dL (<150)
[2022-04-09 12:12] LABS: LDL Cholesterol Direct 44 mg/dL
[2022-04-09 12:13] LABS: Hemoglobin A1C 5.5 % (<5.7)
== END 2022-04-09 11:21 | disposition home or self-care (01) ==
LOC: ANHLAB 11:22
PROVIDERS: PCP Internal Medicine; Visit Provider Internal Medicine
DX: E11.9 Type 2 diabetes mellitus without complications (principal); E78.2 Mixed hyperlipidemia; I10 Essential (primary) hypertension
CPT/HCPCS: 36415; 80048; 80061; 83036

== ENCOUNTER 2022-06-07 11:53 | Inpatient (IN) | payer MEDICARE, SELFPAY ==
[2022-06-07] VITALS (10 sets, daily range): BP systolic 122–172; BP diastolic 55–103; PULSE 61–90; RESP 13–19; TEMP 36.1–36.6; O2SAT 97–100; BMI 28.9
--- NOTE | ~2022-06-07 | XR_ITS ---
EXAMINATION: XR hip LT 2V w AP pelvis DATE: 06/07/2022 15:05 INDICATION: Left hip pain. Fall. TECHNIQUE: An anteroposterior view of the pelvis and 2 views of left hip were obtained. COMPARISON: Pelvis and hip radiographs 12/15/2019 FINDINGS: There is lumbar levocurvature and severe spondylosis. No fracture. There is a bipolar left hip hemiarthroplasty in near-anatomic alignment. There is moderate right hip osteoarthritis. IMPRESSION: 1. Bipolar left hip hemiarthroplasty in near-anatomic alignment. 2. Moderate right hip osteoarthritis. Reviewed, dictated and finalized at location A. VIORAL HEALTH DIRECTOR
--- NOTE | ~2022-06-07 | US_ITS ---
EXAMINATION: US venous doppler [facility] DATE: 06/08/2022 10:41 INDICATION: Lower limb edema. TECHNIQUE: Grayscale ultrasound images without and with compression and Doppler ultrasound images of the bilateral lower extremity veins were obtained. COMPARISON: Ultrasound 01/21/2020 FINDINGS: The visualized portions of right common femoral vein, profunda (deep) femoral vein, femoral vein, pop liteal vein, peroneal veins, posterior tibial veins, and greater saphenous vein outflow are patent. The visualized portions of left common femoral vein, profunda femoral vein, femoral vein, popliteal v ein, peroneal veins, posterior tibial veins, and greater saphenous vein outflow are patent. IMPRESSION: 1. No deep venous thrombosis. Reviewed, dictated and finalized at location A. CAL INSTRUMENT ASSEMBLER
--- NOTE | ~2022-06-07 | XR_ITS ---
EXAMINATION: XR knee LT 3V DATE: 06/07/2022 15:05 INDICATION: Left knee pain and swelling. Fall. TECHNIQUE: 3 views of left knee were obtained. COMPARISON: Left knee radiographs 01/16/2017 FINDINGS: Bone alignment is normal. No fracture. There is severe osteoarthritis of lateral compartmen t and mild osteoarthritis of medial and patellofemoral compartments. There is chondrocalcinosis of me dial meniscus. There is a moderate-sized knee joint effusion. There is a loose body in the posterior knee joint. IMPRESSION: 1. Severe left knee osteoarthritis. 2. Moderate-sized left knee joint effusion with loose body. Reviewed, dictated and finalized at location A. EVEL PROVIDER
--- NOTE | ~2022-06-07 | CT_ITS ---
EXAMINATION: CT brain wo con DATE: 06/07/2022 14:47 INDICATION: Fall. TECHNIQUE: Computed tomography (CT) of the head was performed without intravenous contrast. The mA wa s adjusted according to patient size. Iterative reconstruction technique was employed. The dose-lengt h product was 605.33 mGy-cm. COMPARISON: Head CT 01/21/2020 FINDINGS: There are scattered areas of low attenuation in the cerebral white matter. There is no intr acranial hemorrhage, acute infarction, or abnormal intracranial mass lesion. The ventricles are riky l in size. There are likely changes of ocular lens replacement surgeries. There is mild mucosal thick ening in the paranasal sinuses. The mastoid air cells are normal. IMPRESSION: 1. Stable moderate nonspecific cerebral white matter disease, which likely represents chronic small v essel ischemic disease. Reviewed, dictated and finalized at location A. ER TENDER IMPRESSION: 1. Stable moderate nonspecific cerebral white matter disease, which likely repr esents chronic small vessel ischemic disease.
--- NOTE | ~2022-06-07 | XR_ITS ---
EXAMINATION: XR wrist RT 2V DATE: 06/07/2022 15:04 INDICATION: Right wrist injury and swelling. TECHNIQUE: 2 views of right wrist were obtained. COMPARISON: None. FINDINGS: Bone alignment is normal. No fracture. There is severe osteoarthritis of triscaphe joint an d mild osteoarthritis of first carpometacarpal joint. IMPRESSION: 1. Polyarticular osteoarthritis. Reviewed, dictated and finalized at location A. UCTION BOW MAKER
--- NOTE | 2022-06-07 11:59 | ECG_ITS ---
Measurements Intervals [place] Rate: 73 P: HI: 0 QRS: -35 QRSD: 96 T: 75 QT: 406 QTc: 448 Interpretive Statements SINUS RHYTHM ATRIAL PREMATURE COMPLEXES LEFT AXIS DEVIATION LEFT VENTRICULAR HYPERTROPHY WITH ST-T CHANGE POOR R WAVE PROGRESSION, ANTERIOR LEADS BASELINE ARTIFACT- I, II, III, AVR, AVL, AVF, V1-V6 BORDERLINE ECG NO PREVIOUS ECG AVAILABLE FOR COMPARISON Electronically Signed On 06-07-2022 12:07:29 ROLL EDGE STITCHER HAND by Adam Alston D.O.
[2022-06-07 12:23] LABS: Appearance Urine Clear (Clear); Basophils Absolute Auto 0.1 K/mm3 (0.0-0.1); Basophils Percent Auto 0.9 % (0.2-1.2); Bilirubin Urine Negative (Negative); Blood Urine Trace-intact (Negative); Color Urine Yellow (Yellow); Eosinophils Absolute Auto 0.1 K/mm3 (0-0.3); Eosinophils Percent Auto 0.8 % (0-4.4); Glucose Urine UA Negative (Negative); Hematocrit 41.2 % (37.0-47.0); Hemoglobin 13.8 g/dL (12.0-15.0); Immature Granulocyte Absolute 0.05 K/mm3 (0.00-0.031); Immature Granulocyte Percent A 0.4 % (0-0.5); Ketones Urine Trace mg/dL (Negative); Leukocyte Esterase Ur Negative LEU/UL (Negative); Lymphocytes Absolute Auto 1.58 K/mm3 (0.9-3.2); Lymphocytes Percent Auto 13.5 % (18.3-44.2); Mean Corpuscular HGB Conc 33.5 g/dl (32-36); Mean Corpuscular Hemoglobin 31.3 pg (26-34); Mean Corpuscular Volume 93.4 fl (80-100); Mean Platelet Volume 11.6 fl (7.4-10.4); Monocytes Absolute Auto 1.1 K/mm3 (0.1-0.6); Monocytes Percent Auto 9.7 % (2.6-8.5); Neutrophils Absolute Auto 8.8 K/mm3 (1.3-6.7); Neutrophils Percent Auto 74.7 % (45.5-73.1); Nitrate Urine Negative (Negative); Platelet Count Result 188 k/mm3 (150-375); Protein Urine 1+ mg/dL (Negative); Red Blood Count 4.41 M/mm3 (4.2-5.4); Specific Grav Ur 1.015 (1.001-1.035); Urobilinogen Urine 0.2 mg/dL (<2.0); White Blood Count 11.7 K/mm3 (4.5-10.0); pH Urine 5.5 (5.0-9.0)
[2022-06-07 12:29] LABS: Mucus Urine Rare /lpf; RBC Urine 0-2 /hpf (0-2); Squamous Epithelial Cell Urine Rare /hpf (Few); WBC Urine 0-3 /hpf
[2022-06-07 12:31] LABS: Add Urine Microscopic? YES
[2022-06-07 12:35] LABS: Creatine Kinase 1182 U/L (30-135)
[2022-06-07 12:37] LABS: Alanine Aminotransferase 46 U/L (6-35); Albumin Level 4.4 g/dL (3.5-5.1); Alkaline Phosphatase 123 U/L (38-126); Anion Gap 10 mmol/L (8-16); Aspartate Amino Transferase 92 U/L (14-36); Bilirubin,Total 0.9 mg/dL (0.2-1.3); Blood Urea Nitrogen 46 mg/dL (7-17); Calcium 9.6 mg/dL (8.4-10.2); Carbon Dioxide 22 mmol/L (22-30); Chloride 96 mmol/L (98-107); Estimated CRCL calculation 14 ml/min; Estimated Glomerular Filt Rate 21; Glucose 122 mg/dL (65-110); Lactic Acid Reflex 2.3 mmol/L (0.7-2.0); Potassium 3.8 mmol/L (3.4-5.0); Sodium 128 mmol/L (137-145)
[2022-06-07] MEDS: SODIUM CHLORIDE 0.9% IV 1,000 ML 999 ML IV CONT ×2 (12:57→13:41)
--- NOTE | 2022-06-07 13:25 | ED.FALL ---
HPI - Fall General Chief Complaint: Fall Stated Complaint: falls & weakness Time Seen by Provider: 06/07/22 12:00 History of Present Illness HPI Narrative: Patient is an 87-year-old female with a history of A. fib on Eliquis, hypertension, hyperlipidemia presenting after a fall. Patient reports that she fell from her bed sometime last night. States that she slipped onto the floor. She does not think she struck her head. Patient was unable to get up until her neighbors found her this morning and called EMS. Currently, patient complains of knee pain. I spoke with the patient's daughter who states that this is actually her third fall in the last several days. Her daughter feels that she is no longer safe at home given recurrent falls. Patient's daughter and son are on their way to the area from the [facility]. Related Data Home Medications Medication Instructions Recorded Confirmed ascorbate calcium (vitamin C) 500 500 mg PO DAILY 04/19/19 04/23/22 mg tablet vitamin B complex 1 tablet PO DAILY 04/19/19 04/23/22 multivit with 1 tablet PO DAILY 09/21/19 04/23/22 vxalozci-nnyq-YX-lutein 8 mg iron-400 mcg-300 mcg tablet (Centrum Silver Women) calcium carbonate 600 mg-vitamin 1 tablet PO DAILY 01/02/21 04/23/22 D3 20 mcg (800 unit) tablet vitamin E (dl, acetate) 180 mg 180 mg PO DAILY 01/02/21 04/23/22 (400 unit) capsule Allergies Allergy/AdvReac Type Severity Reaction Status Date / Time No Known Allergies Allergy Unknown Verified 06/07/22 11:58 Review of Systems Review of Systems: All systems reviewed & are unremarkable except as noted in HPI and below PMFSH Past Medical History Medical History A-fib Benign essential hypertension BMI 26.0-26.9,adult BMI 27.0-27.9,adult BMI 28.0-28.9,adult Cellulitis Chronic kidney disease, stage 3 Baseline creatinine around 1.20. CKD (chronic kidney disease) Degenerative joint disease Diastolic dysfunction recent echocardiogram showed mild mitral valve regurgitation, grade 1 diastolic dysfunction, ejection fraction of 69%. Elevated serum creatinine Follow up Hard of hearing Hospital discharge follow-up Hypercalcemia Hyperlipidemia Kidney stones Memory loss Parathyroid adenoma s/p excision Paroxysmal atrial fibrillation followed by Dr. Alejo Del Rio. The patient had 1 episode atrial fibrillation following her hip replacement surgery in May Two thousand nineteen Polymyalgia rheumatica Skin mole Unintentional weight loss Valvular heart disease echocardiogram May 2018 demonstrated EF of 70-75%, grade 1 diastolic dysfunction, mild LVH, moderate mitral regurgitation, mild aortic insufficiency, mild pulmonary hypertension with RVSP of 40-45, mild tricuspid regurgitation, mild pulmonic insufficiency Weight loss Surgical History Surgical History History of bunionectomy of both great toes History of left hip replacement May 2018 secondary to fracture from fall History of parathyroidectomy Status post cataract extraction of both eyes with insertion of intraocular lens Family History Family History Father Diabetes mellitus Heart disease Mother Hypertension Brain malignancy Social History Social History Social History: She has 2 children. [place]. Her son lives in [place]. She has a cousin who lives nearby and helps her out from time to time. She is a retired accounts officer and worked retail. Surrogate decision maker: Therese Agrawal, daughter. Code status: Full code. Smoking status: Never smoker Second hand tobacco smoke exposure: No Alcohol intake: never Alcohol use details: She may drink a glass a wine once a year. Substance use: never Substance use type: peng
[2022-06-07 15:18] LABS: Reflex Lactic Acid Yes or No Add Lactic
[2022-06-07 15:46] LABS: Lactic Acid 0.7 mmol/L (0.7-2.0)
--- NOTE | 2022-06-07 15:46 | PCOTNOTE ---
Pt. just admitted from ED
[2022-06-07 15:50] LABS: Influenza A QL RT-PCR Negative (Negative); Influenza B QL RT-PCR Negative (Negative); SARS-CoV-2 RNA PCR Negative
--- NOTE | 2022-06-07 15:50 | PM.IMHP ---
H&P: HPI History of Present Illness Date/Time: 06/07/22 15:50 Chief Complaint: Fall. Narrative: This is an 87-year-old female with history of memory loss, paroxysmal atrial fibrillation, hypertension, chronic kidney disease, and polymyalgia rheumatica who presented to the emergency department for evaluation after a fall. The patient provides majority of the history however her cousin, Pricila, provides additional information with the patient's permission. She lives alone in her own home and ambulates with a cane or walker. At about 02:00 the patient got up to use the restroom and she tells me that she slid out of her bed and landed on her buttocks. She was unable to get herself up so she lay on the floor until she was found by her neighbors this morning, who in turn called EMS. With further questioning this will be her 3rd fall in the past 1 week though she tries to downplay that fact. She does not recall exactly why she slid off the bed but tells me that she has been getting a bit lightheaded and dizzy recently however she is certain that there was no loss of consciousness. She also denies head trauma. On arrival to the ED she was complaining of some mild left knee pain and right wrist discomfort. Imaging of the hip and pelvis, left knee, right wrist, and brain showed no acute fractures. Knee x-ray did show a moderate-sized left knee joint effusion with loose body. Vital signs have thus far been stable. Labs in the ED were significant for an acute on chronic kidney injury with a BUN and creatinine of 46 and 2.20 respectively (baseline creatinine 1.3 to 1.50), total CK 1182, AST 92, ALT 46. She is being admitted in this setting for IV hydration and PT/OT evaluation. Currently she has no specific complaint and she denies headache, vertigo, focal weakness, paresthesias, fever, chills, sweats, cold and flu symptoms, chest pain, shortness a breath, nausea, vomiting, diarrhea, and dysuria. Review of Systems Review of Systems: Twelve systems were reviewed and are negative except for as per HPI. [facility] Past Medical History Medical History Benign essential hypertension BMI 28.0-28.9,adult Cellulitis Chronic kidney disease, stage 3 Baseline creatinine around 1.20. Deep venous thrombosis Degenerative joint disease Diastolic dysfunction Recent echo showed mild mitral valve regurgitation, grade 1 diastolic dysfunction, ejection fraction of 69%. Hard of hearing Hyperlipidemia Kidney stones Memory loss Parathyroid adenoma Status post resection. Paroxysmal atrial fibrillation Followed by Dr. Alejo Del Rio. The patient had 1 episode atrial fibrillation following her hip replacement surgery in May 2018. Polymyalgia rheumatica Valvular heart disease Echocardiogram May 2018 demonstrated EF of 70-75%, grade 1 diastolic dysfunction, mild LVH, moderate mitral regurgitation, mild aortic insufficiency, mild pulmonary hypertension with RVSP of 40-45, mild tricuspid regurgitation, mild pulmonic insufficiency Surgical History Surgical History History of bunionectomy of both great toes History of left hip replacement May 2018 secondary to fracture from fall History of parathyroidectomy Status post cataract extraction of both eyes with insertion of intraocular lens Family History Family History Father Diabetes mellitus Heart disease Mother Hypertension Brain malignancy Social History Social History Social History: She has 2 children. Her daughter lives [place]. Her son lives in [place]. She has a cousin who lives nearby and helps her out from time to time. She is a retired deck officer and worked retail. Surrogate decision maker: Therese Agrawal, daughter. Code status: Full code. Shane
--- NOTE | 2022-06-07 16:10 | ADMGEN ---
This patient, Nery Agrawal, was admitted to Medical Room 254-01. Patient/family oriented to hospital policies and general routines including ID bracelet, bed and alarms, visiting hours, pain management, procedures, bathroom and other care routines, personal items, smoking policy, room service/diet, and visiting hours. Information on how to activate the Rapid Response Team has been discussed. Patient/Family are encouraged to report perceived risks to care and to ask questions if they do not understand what they are told or what they should do.
[2022-06-07 19:14] LABS: Anion Gap 10 mmol/L (8-16); Blood Urea Nitrogen 41 mg/dL (7-17); Calcium 8.5 mg/dL (8.4-10.2); Carbon Dioxide 17 mmol/L (22-30); Chloride 107 mmol/L (98-107); Estimated CRCL calculation 19 ml/min; Estimated Glomerular Filt Rate 30; Glucose 82 mg/dL (65-110); Potassium 3.8 mmol/L (3.4-5.0); Sodium 134 mmol/L (137-145)
[2022-06-08] VITALS (11 sets, daily range): BP systolic 127–169; BP diastolic 69–117; PULSE 70–121; RESP 16–18; TEMP 36.4–36.8; O2SAT 93–100
[2022-06-08] MEDS: LACTATED RINGERS 1,000 ML 100 ML IV CONT ×2 (00:56→12:37)
[2022-06-08 05:36] LABS: Hematocrit 35.9 % (37.0-47.0); Hemoglobin 12.1 g/dL (12.0-15.0); Mean Corpuscular HGB Conc 33.7 g/dl (32-36); Mean Corpuscular Hemoglobin 31.8 pg (26-34); Mean Corpuscular Volume 94.2 fl (80-100); Mean Platelet Volume 11.9 fl (7.4-10.4); Platelet Count Result 162 k/mm3 (150-375); Red Blood Count 3.81 M/mm3 (4.2-5.4); Red Cell Distribution Width 13.2 % (11.5-14.5); White Blood Count 9.6 K/mm3 (4.5-10.0)
[2022-06-08 05:58] LABS: Alanine Aminotransferase 39 U/L (6-35); Albumin Level 3.5 g/dL (3.5-5.1); Alkaline Phosphatase 101 U/L (38-126); Anion Gap 8 mmol/L (8-16); Aspartate Amino Transferase 59 U/L (14-36); Bilirubin,Total 0.8 mg/dL (0.2-1.3); Blood Urea Nitrogen 33 mg/dL (7-17); Calcium 8.6 mg/dL (8.4-10.2); Carbon Dioxide 19 mmol/L (22-30); Chloride 103 mmol/L (98-107); Creatine Kinase 649 U/L (30-135); Estimated CRCL calculation 21 ml/min; Estimated Glomerular Filt Rate 35; Glucose 82 mg/dL (65-110); Magnesium 1.9 mg/dL (1.6-2.3); Potassium 3.8 mmol/L (3.4-5.0); Sodium 130 mmol/L (137-145)
[2022-06-08] MEDS: THERAPEUTIC MULTIVITAMINS/MINERALS TAB (*BKC) 1 TABLET PO (09:10)
[2022-06-08] MEDS: ASCORBIC ACID 500 MG TABLET PO (09:11)
[2022-06-08] MEDS: VITAMIN B COMPLEX CAPSULE 1 CAP PO (09:11)
[2022-06-08] MEDS: METOPROLOL TARTRATE 12.5 MG TABLET PO ×2 (09:11→20:46)
[2022-06-08] MEDS: APIXABAN 2.5 MG TABLET BY MOUTH ×2 (09:11→16:40)
[2022-06-08] MEDS: VITAMIN E 400 UNIT CAPSULE PO (09:20)
--- NOTE | 2022-06-08 15:41 | PM.IMPN ---
Progress Note: A&P Assessment and Plan (1) Fall from ground level: Code(s): W18.30XA - Fall on same level, unspecified, initial encounter Status: Acute Assessment and Plan: Patient reportedly slid out of bed and onto the floor, landing on her buttocks. Was reportedly on the floor for 10 hours before being found by her neighbor. Has had frequent falls, reportedly 3 in the past 1 week[address] Fall precautions in place. Continue PT/ OT. Will likely require rehab/placement following discharge. concerns regarding patient's ability to care for herself independently at home (2) Rhabdomyolysis: Code(s): M62.82 - Rhabdomyolysis Status: Acute Assessment and Plan: Mild rhabdomyolysis with a CK of 1182 on admission. AST and ALT are also slightly elevated due to the rhabdo. she has been rehydrated with IV fluids. CK improved to 650 today. LFTs trending down. Will discontinue IV fluids as patient has been adequately rehydrated and is tolerating oral intake. Trend CK and LFTs (3) Acute on chronic renal failure: Code(s): N17.9 - Acute kidney failure, unspecified; N18.9 - Chronic kidney disease, unspecified Status: Acute Assessment and Plan: Review of prior labs demonstrates baseline to be around 1.3. Presumably due to rhabdomyolysis in addition to mild dehydration. Renal function has improved following IV fluid rehydration. Creatinine 1.4 this morning. Continue to monitor BMP (4) Benign essential hypertension: Code(s): I10 - Essential (primary) hypertension Status: Acute Assessment and Plan: Blood pressures are stable. Continue home metoprolol. Her irbesartan on hold due to ALLA. (5) Chronic anticoagulation: Code(s): Z79.01 - equipment operator intermodal yard (current) use of anticoagulants Status: Acute Assessment and Plan: Patient on apixaban due to paroxysmal atrial fibrillation and history of DVT. With her frequent falls concern is that the risks of anticoagulation may outweigh the benefits at this juncture. This will need to be weighed carefully. For now will continue with apixaban with fall precautions implemented and close monitoring prior to discussing risks versus benefits with family. Reportedly her children are coming in from out of town to make appropriate arrangements. Will have discussion upon their arrival Subjective Date/time seen: 06/08/22 15:41 Interval history: date of service: 06/08/2022 Nery Agrawal is an 87-year-old female with a history of hypertension, CKD, DVT and paroxysmal atrial fibrillation on chronic anticoagulation, hyperlipidemia, and polymyalgia rheumatica who is seen in follow-up for rhabdomyolysis secondary to fall. The patient is pleasantly confused. She knew she was in the hospital but believed she was here to have a checkup with her primary doctor. She does not recall suffering a fall. When I informed her that she had a fall and was on the ground for approximately 10 hours, she could not believe this and did not feel that this was accurate. she states that she did not suffer any injuries. She does complain of left knee pain though states this is been a chronic issue. She denies dizziness or lightheadedness. No episodes of fevers or chills. Denies dysuria or hematuria. Denies swelling of her extremities. She has a noticeable subconjunctival hemorrhage, and when asked about this, she states that she has no idea how she got this and it is not bothersome to her. Review of Systems Review of Systems: All systems reviewed & are unremarkable except as noted in HPI and below Exam Narrative: General: Thin, well-appearing 87-year-old female, sitting up in bed, comfortable, NARD Neuro: awake, alert and oriented x3 ( cannot recall details of hospitalization, exhibits confusion), speech clear, no focal neuro deficits noted HEENMT: normocephalic, atraumatic, EOMI, sclerae anicteric, medial subconjunctival hemorr
[2022-06-09] VITALS (8 sets, daily range): BP systolic 127–162; BP diastolic 64–94; PULSE 62–90; RESP 16–21; TEMP 36.2–37.3; O2SAT 92–100
[2022-06-09 05:51] LABS: Hematocrit 35.8 % (37.0-47.0); Mean Corpuscular HGB Conc 33.5 g/dl (32-36); Mean Corpuscular Volume 95.5 fl (80-100); Mean Platelet Volume 11.3 fl (7.4-10.4); Platelet Count Result 145 k/mm3 (150-375); Red Blood Count 3.75 M/mm3 (4.2-5.4); White Blood Count 11.2 K/mm3 (4.5-10.0)
[2022-06-09 06:02] LABS: Alanine Aminotransferase 37 U/L (6-35); Albumin Level 3.1 g/dL (3.5-5.1); Alkaline Phosphatase 88 U/L (38-126); Anion Gap 2 mmol/L (8-16); Aspartate Amino Transferase 51 U/L (14-36); Bilirubin,Total 0.7 mg/dL (0.2-1.3); Blood Urea Nitrogen 24 mg/dL (7-17); Calcium 8.6 mg/dL (8.4-10.2); Carbon Dioxide 25 mmol/L (22-30); Chloride 106 mmol/L (98-107); Creatine Kinase 486 U/L (30-135); Estimated CRCL calculation 25 ml/min; Estimated Glomerular Filt Rate 42; Glucose 94 mg/dL (65-110); Potassium 3.8 mmol/L (3.4-5.0); Sodium 133 mmol/L (137-145)
--- NOTE | 2022-06-09 07:41 | PC.NURSE ---
Pt continues to be confused, unable to hold any detailed conversation. When given medication, pt initially refused, stating that she had already taken her med at home today. Pt turns on tv throughout the night and moves items around that are in reach while in bed. During rounding pt will state she needs to urinate but pt does not use call light- cannot grasp the concept to call for help. At one point during rounding, pt was awake and stated she was holding her pee because she didnt want to ask for help.
[2022-06-09] MEDS: APIXABAN 2.5 MG TABLET BY MOUTH ×2 (08:37→17:08)
[2022-06-09] MEDS: ASCORBIC ACID 500 MG TABLET PO (08:37)
[2022-06-09] MEDS: METOPROLOL TARTRATE 12.5 MG TABLET PO ×2 (08:38→21:03)
[2022-06-09] MEDS: THERAPEUTIC MULTIVITAMINS/MINERALS TAB (*BKC) 1 TABLET PO (08:38)
[2022-06-09] MEDS: VITAMIN B COMPLEX CAPSULE 1 CAP PO (08:38)
[2022-06-09] MEDS: VITAMIN E 400 UNIT CAPSULE PO (08:38)
--- NOTE | 2022-06-09 15:28 | PM.IMPN ---
Progress Note: A&P Assessment and Plan (1) Fall from ground level: Code(s): W18.30XA - Fall on same level, unspecified, initial encounter Status: Acute Assessment and Plan: Patient reportedly slid out of bed and onto the floor, landing on her buttocks. Was reportedly on the floor for 10 hours before being found by her neighbor. Has had frequent falls, reportedly 3 in the past [address] showed no acute findings. Fall precautions in place. Continue PT/ OT. Will likely require rehab/placement following discharge. concern regarding patient's ability to care for herself independently at home (2) Rhabdomyolysis: Code(s): M62.82 - Rhabdomyolysis Status: Acute Assessment and Plan: Mild rhabdomyolysis with a CK of 1182 on admission. AST and ALT are also slightly elevated due to the rhabdo. she has been rehydrated with IV fluids. CK improved to 480 today. LFTs trending down. IV fluids discontinue as patient has been adequately rehydrated and is tolerating oral intake. Trend LFTs (3) Generalized weakness: Code(s): R53.1 - Weakness Status: Acute Assessment and Plan: patient's family unsure what is triggered recent falls. Reportedly, patient is typically quite independent and active. Over the past week, she has had 3 falls and unsure what triggered this. No indications to suggest underlying infection. Perhaps related to polymyalgia rheumatica, however patient's family states this is well controlled. May be overall physical deconditioning. Will check TSH, B12, and folate. Continue PT/OT (4) Acute on chronic renal failure: Code(s): N17.9 - Acute kidney failure, unspecified; N18.9 - Chronic kidney disease, unspecified Status: Acute Assessment and Plan: Review of prior labs and office visits demonstrates baseline to be around 1.3. Presumably due to rhabdomyolysis in addition to mild dehydration. Renal function has returned to baseline following IV fluid rehydration. Continue to monitor BMP (5) Benign essential hypertension: Code(s): I10 - Essential (primary) hypertension Status: Acute Assessment and Plan: Blood pressures are stable. Continue home metoprolol. resume home irbesartan ( previously on hold due to ALLA) (6) Chronic anticoagulation: Code(s): Z79.01 - rat exterminator (current) use of anticoagulants Status: Acute Assessment and Plan: Patient on apixaban due to paroxysmal atrial fibrillation and history of DVT. With her frequent falls concern is that the risks of anticoagulation may outweigh the benefits at this juncture. discussion with patient and family today regarding risk versus benefits of continued anticoagulation. For now will continue with apixaban with fall precautions implemented and close monitoring. Family will consider and would like time to discuss. Plan MEDICAL DECISION MAKING NARRATIVE History obtained from: Patient History from independent sources: daughter and son External chart review: PCP notes New problems addressed: rhabdomyolysis, weakness, falls Chronic illnesses addressed: chronic anticoagulation, hypertension Independent interpretation of studies: CBC, CMP, head CT Risk of complication: Risk of bleeding with continued anticoagulation versus risk of stroke with discontinuation Time spent on encounter: 50 minutes Subjective Date/time seen: 06/09/22 15:28 Interval history: date of service: 06/09/2022 Nery Agrawal is an 87-year-old female with a history of hypertension, CKD, DVT and paroxysmal atrial fibrillation on chronic anticoagulation, hyperlipidemia, and polymyalgia rheumatica who is seen in follow-up for rhabdomyolysis secondary to fall. The patient is pleasantly confused. She states that she is feeling well today but does continue to endorse weakness. She was able to walk to the bathroom today with the assistance of her aide and a walker. Abhishek
[2022-06-09 18:36] LABS: Glucose Point of Care 117 mg/dl (65-105)
[2022-06-10] VITALS (8 sets, daily range): BP systolic 114–148; BP diastolic 58–81; PULSE 64–114; RESP 16–21; TEMP 36.3–37.1; O2SAT 97–100
[2022-06-10 05:15] LABS: Hematocrit 35.9 % (37.0-47.0); Hemoglobin 12.1 g/dL (12.0-15.0); Mean Corpuscular HGB Conc 33.7 g/dl (32-36); Mean Platelet Volume 11.2 fl (7.4-10.4); Platelet Count Result 153 k/mm3 (150-375); Red Blood Count 3.78 M/mm3 (4.2-5.4); Red Cell Distribution Width 13.2 % (11.5-14.5); White Blood Count 10.2 K/mm3 (4.5-10.0)
[2022-06-10 05:25] LABS: Alanine Aminotransferase 33 U/L (6-35); Albumin Level 3.2 g/dL (3.5-5.1); Alkaline Phosphatase 83 U/L (38-126); Anion Gap 4 mmol/L (8-16); Aspartate Amino Transferase 40 U/L (14-36); Bilirubin,Total 0.7 mg/dL (0.2-1.3); Blood Urea Nitrogen 20 mg/dL (7-17); Calcium 8.7 mg/dL (8.4-10.2); Carbon Dioxide 24 mmol/L (22-30); Chloride 101 mmol/L (98-107); Estimated CRCL calculation 27 ml/min; Estimated Glomerular Filt Rate 47; Glucose 102 mg/dL (65-110); Potassium 3.4 mmol/L (3.4-5.0); Sodium 129 mmol/L (137-145)
[2022-06-10 07:22] LABS: Folic Acid > 20.0 ng/mL (2.76->20)
[2022-06-10] MEDS: ASCORBIC ACID 500 MG TABLET PO (08:28)
[2022-06-10] MEDS: METOPROLOL TARTRATE 12.5 MG TABLET PO ×2 (08:28→20:44)
[2022-06-10] MEDS: IRBESARTAN 150 MG TABLET PO (08:28)
[2022-06-10] MEDS: APIXABAN 2.5 MG TABLET BY MOUTH ×2 (08:28→16:49)
[2022-06-10] MEDS: VITAMIN E 400 UNIT CAPSULE PO (08:28)
[2022-06-10] MEDS: THERAPEUTIC MULTIVITAMINS/MINERALS TAB (*BKC) 1 TABLET PO (08:28)
[2022-06-10] MEDS: VITAMIN B COMPLEX CAPSULE 1 CAP PO (08:29)
[2022-06-10] MEDS: SODIUM CHLORIDE 500 MG TABLET PO (08:56)
[2022-06-10 12:13] LABS: Sodium 133 mmol/L (137-145)
--- NOTE | 2022-06-10 16:52 | PM.IMPN ---
Progress Note: A&P Assessment and Plan (1) Fall from ground level: Code(s): W18.30XA - Fall on same level, unspecified, initial encounter Status: Acute Assessment and Plan: Patient reportedly slid out of bed and onto the floor, landing on her buttocks. Was reportedly on the floor for 10 hours before being found by her neighbor. Has had frequent falls, reportedly 3 in the past [address] showed no acute findings. Fall precautions in place. Continue PT/ OT. Planning for SNF following discharge. Do not feel the patient is able to care for herself independently at home. (2) Rhabdomyolysis: Code(s): M62.82 - Rhabdomyolysis Status: Acute Assessment and Plan: Mild rhabdomyolysis with a CK of 1182 on admission. AST and ALT are also slightly elevated due to the rhabdo. she has been rehydrated with IV fluids. CK has improved to 480. LFTs have normalized. IV fluids discontinued as patient has been adequately rehydrated and is tolerating oral intake. (3) Generalized weakness: Code(s): R53.1 - Weakness Status: Acute Assessment and Plan: patient's family unsure what has triggered recent falls. Reportedly, patient is typically quite independent and active. Over the past week, she has had 3 falls and unsure what triggered this. No indications to suggest underlying infection. Perhaps related to polymyalgia rheumatica, however patient's family states this is well controlled. TSH, B12, and folate within normal limits. May be overall physical deconditioning. Continue PT/OT (4) Acute on chronic renal failure: Code(s): N17.9 - Acute kidney failure, unspecified; N18.9 - Chronic kidney disease, unspecified Status: Acute Assessment and Plan: Review of prior labs and office visits demonstrates baseline to be around 1.3. Presumably due to rhabdomyolysis in addition to mild dehydration. Renal function has returned to baseline following IV fluid rehydration. Continue to monitor BMP (5) Benign essential hypertension: Code(s): I10 - Essential (primary) hypertension Status: Acute Assessment and Plan: Blood pressures are stable. Continue home metoprolol and irbesartan (6) Chronic anticoagulation: Code(s): Z79.01 - termite control service representative (current) use of anticoagulants Status: Acute Assessment and Plan: Patient on apixaban due to paroxysmal atrial fibrillation and history of DVT. With her frequent falls concern is that the risks of anticoagulation may outweigh the benefits at this juncture. discussion with patient and family on 06/09 regarding risk versus benefits of continued anticoagulation. For now will continue with apixaban with fall precautions implemented and close monitoring. Family will consider and would like time to discuss. Subjective Date/time seen: 06/10/22 16:52 Interval history: date of service: 06/10/2022 Nery Agrawal is an 87-year-old female with a history of hypertension, CKD, DVT and paroxysmal atrial fibrillation on chronic anticoagulation, hyperlipidemia, and polymyalgia rheumatica who is seen in follow-up for rhabdomyolysis secondary to fall. She is feeling better today. She has been sitting up in the chair for is feeling comfortable. She participated in therapy today. She has been able to ambulate back and forth to the bathroom. She feels that she is slowly getting somewhat stronger. She denies any pain. No nausea, vomiting, fever, or chills. Tolerating her diet. She does admit to feeling a bit sad today about the changes that her upcoming with her living situation. Review of Systems Review of Systems: All systems reviewed & are unremarkable except as noted in HPI and below Exam Narrative: General: thin, well-appearing 87-year-old female, sitting up in chair, comfortable, NARD Neuro: awake, alert and oriented x3, speech clear, no focal neuro deficits noted, pleasantly confused
[2022-06-11 05:37] LABS: Hematocrit 34.7 % (37.0-47.0); Hemoglobin 11.5 g/dL (12.0-15.0); Mean Corpuscular HGB Conc 33.1 g/dl (32-36); Mean Corpuscular Hemoglobin 31.3 pg (26-34); Mean Corpuscular Volume 94.6 fl (80-100); Mean Platelet Volume 10.7 fl (7.4-10.4); Platelet Count Result 158 k/mm3 (150-375); Red Blood Count 3.67 M/mm3 (4.2-5.4); White Blood Count 10.6 K/mm3 (4.5-10.0)
[2022-06-11 05:48] LABS: Alanine Aminotransferase 31 U/L (6-35); Alkaline Phosphatase 80 U/L (38-126); Anion Gap 2 mmol/L (8-16); Aspartate Amino Transferase 32 U/L (14-36); Bilirubin,Total 0.6 mg/dL (0.2-1.3); Blood Urea Nitrogen 22 mg/dL (7-17); Calcium 8.9 mg/dL (8.4-10.2); Carbon Dioxide 25 mmol/L (22-30); Chloride 105 mmol/L (98-107); Creatine Kinase 116 U/L (30-135); Estimated CRCL calculation 27 ml/min; Estimated Glomerular Filt Rate 47; Glucose 100 mg/dL (65-110); Potassium 3.8 mmol/L (3.4-5.0); Sodium 132 mmol/L (137-145)
[2022-06-11 06:00] VITALS: BP 147/58; PULSE 65; RESP 21; TEMP 36.3; O2SAT 100
[2022-06-11 06:05] VITALS: BP 162/72; PULSE 68; RESP 21; TEMP 36.8; O2SAT 100
[2022-06-11 06:15] VITALS: BP 147/65; PULSE 89; RESP 21; TEMP 36.6; O2SAT 100
[2022-06-11 08:15] LABS: Glucose Point of Care 92 mg/dl (65-105)
[2022-06-11] MEDS: VITAMIN E 400 UNIT CAPSULE PO (08:24)
[2022-06-11] MEDS: ASCORBIC ACID 500 MG TABLET PO (08:24)
[2022-06-11] MEDS: METOPROLOL TARTRATE 12.5 MG TABLET PO (08:24)
[2022-06-11] MEDS: IRBESARTAN 150 MG TABLET PO (08:25)
[2022-06-11] MEDS: APIXABAN 2.5 MG TABLET BY MOUTH (08:25)
[2022-06-11] MEDS: THERAPEUTIC MULTIVITAMINS/MINERALS TAB (*BKC) 1 TABLET PO (08:25)
[2022-06-11] MEDS: VITAMIN B COMPLEX CAPSULE 1 CAP PO (08:25)
[2022-06-11] MEDS: SODIUM CHLORIDE 500 MG TABLET PO (08:25)
[2022-06-11 12:00] VITALS: BP 122/55; PULSE 82
[2022-06-11 12:02] LABS: Glucose Point of Care 154 mg/dl (65-105)
[2022-06-11 12:05] VITALS: BP 120/61; PULSE 90
[2022-06-11 12:10] VITALS: BP 107/43; PULSE 91
--- NOTE | 2022-06-11 14:08 | PM.DS ---
DS: Admitting Diagnosis Discharge Date 06/11/2022 Admitting Diagnosis Rhabdomyolysis DS: Discharge Diagnosis Discharge Diagnosis (1) Fall from ground level: Code(s): W18.30XA - Fall on same level, unspecified, initial encounter Status: Acute Assessment and Plan: Patient reportedly slid out of bed and onto the floor, landing on her buttocks. Was reportedly on the floor for 10 hours before being found by her neighbor. Has had frequent falls, reportedly 3 in the past [address] showed no acute findings. Fall precautions implemented. Participated in PT/OT during admission and will continue therapy on discharge at SNF. (2) Rhabdomyolysis: Code(s): M62.82 - Rhabdomyolysis Status: Resolved Assessment and Plan: Mild rhabdomyolysis with a CK of 1182 on admission. AST and ALT were also slightly elevated due to the rhabdo. She was rehydrated with IV fluids. CK normalized. LFTs normalized. (3) Generalized weakness: Code(s): R53.1 - Weakness Status: Acute Assessment and Plan: patient's family unsure what has triggered recent falls. Reportedly, patient is typically quite independent and active. Over the past week, she has had 3 falls and unsure what triggered this. No indications to suggest underlying infection. Perhaps related to polymyalgia rheumatica, however patient's family states this is well controlled. TSH, B12, and folate within normal limits. Most likely overall physical deconditioning. Continue PT/OT (4) Acute on chronic renal failure: Code(s): N17.9 - Acute kidney failure, unspecified; N18.9 - Chronic kidney disease, unspecified Status: Acute Assessment and Plan: Review of prior labs and office visits demonstrates baseline to be around 1.3. Renal function presumably worsened due to rhabdomyolysis in addition to mild dehydration. Renal function returned to baseline following IV fluid rehydration. (5) Benign essential hypertension: Code(s): I10 - Essential (primary) hypertension Status: Acute Assessment and Plan: Blood pressures remained stable. Continue home metoprolol and irbesartan (6) Chronic anticoagulation: Code(s): Z79.01 - [facility] (current) use of anticoagulants Status: Acute Assessment and Plan: Patient on apixaban due to paroxysmal atrial fibrillation and history of DVT. With her frequent falls, concern is that the risks of anticoagulation may outweigh the benefits at this juncture. Discussion with patient and family on 06/09 regarding risk versus benefits of continued anticoagulation. Patient and family opted to discontinue Eliquis due to patient's fall risk/risk for bleeding. Aware of risk for stroke with discontinuation of Eliquis, however felt that bleeding risk is higher at this point (7) UTI (urinary tract infection): Code(s): N39.0 - Urinary tract infection, site not specified Status: Acute Assessment and Plan: Following completion of discharge plans, patient began to complain of dysuria. She had no additional urinary symptoms and no fever. She did have very mild leukocytosis. UA was found to be grossly abnormal consistent with infection. Given the fact that she has a bed available for SNF, decision has been made to treat with p.o. cefdinir for 7 days while awaiting culture results. Urine cultures will be monitored and patient aware that she will be contacted by phone if any changes to treatment plan are required. Patient has no history of resistant UTIs. DS: Summary Hospital Course Hospital Course: Date of admission: 06/07/2022 Date of discharge: 06/11/2022 Nery Agrawal is an 87-year-old female with a history of hypertension, CKD,? DVT and paroxysmal atrial fibrillation on chronic anticoagulation, hyperlipidemia, and polymyalgia rheumatica who presented to the emergency department on 06/07/2022 after suffering a fall at home. Abhishek
[2022-06-11 15:14] LABS: EDCOVIDSCREEN Negative (Negative)
[2022-06-11 15:32] LABS: Appearance Urine Cloudy (Clear); Bilirubin Urine Negative (Negative); Blood Urine 2+ (Negative); Color Urine Yellow (Yellow); Glucose Urine UA Negative (Negative); Ketones Urine Trace mg/dL (Negative); Leukocyte Esterase Ur 2+ LEU/UL (Negative); Nitrate Urine Negative (Negative); Protein Urine 3+ mg/dL (Negative); Urobilinogen Urine 0.2 mg/dL (<2.0); pH Urine 5.5 (5.0-9.0)
[2022-06-11 15:44] LABS: Bacteria Urine Trace /hpf; Mucus Urine Rare /lpf; RBC Urine 21-50 /hpf (0-2); WBC Clumps Urine Present /HPF; WBC Urine >75 /hpf
[2022-06-11 15:47] LABS: Add Urine Microscopic? YES
== END 2022-06-11 16:44 | DRG 558 ==
LOC: ANHED 12:51 → ANH2MED 15:32
PROVIDERS: Physician Assistant; Admitting Provider Family Medicine; Emergency Provider Emergency Medicine; PCP Internal Medicine; Visit Provider Physician Assistant
DX: M62.82 Rhabdomyolysis (principal); N17.9 Acute kidney failure, unspecified; N39.0 Urinary tract infection, site not specified; W06.XXXA Fall from bed, initial encounter; B96.4 Proteus (mirabilis) (morganii) as the cause of diseases classified elsewhere; I48.0 Paroxysmal atrial fibrillation; M35.3 Polymyalgia rheumatica; I12.9 Hypertensive chronic kidney disease with stage 1 through stage 4 chronic kidney disease, or unspecified chronic kidney disease; N18.9 Chronic kidney disease, unspecified; E86.0 Dehydration; D72.829 Elevated white blood cell count, unspecified; E78.5 Hyperlipidemia, unspecified; M19.90 Unspecified osteoarthritis, unspecified site; Z96.642 Presence of left artificial hip joint; Z91.81 History of falling; Z79.01 Long term (current) use of anticoagulants; Z86.718 Personal history of other venous thrombosis and embolism; Z98.42 Cataract extraction status, left eye; Z98.41 Cataract extraction status, right eye; Z96.1 Presence of intraocular lens
CPT/HCPCS: 36415; 51701; 70450; 73100; 73502; 73562; 80048; 80053; 81001; 82550; 82607; 82746; 82948; 83605; 83735; 84295; 84443; 85025; 85027; 87077; 87086; 87186; 87426; 87636; 93005; 93970; 96360; 96361; 97110; 97116; 97161; 97165; 97530; 97535; 99285; A9270; C9803; J7030; J7120

== ENCOUNTER 2022-07-05 09:21 | Inpatient (IN) | payer MEDICARE, SELFPAY ==
[2022-07-05] VITALS (18 sets, daily range): BP systolic 134–159; BP diastolic 63–88; PULSE 56–87; RESP 13–22; TEMP 36–36.6; O2SAT 98–100
--- NOTE | ~2022-07-05 | CT_ITS ---
EXAMINATION: CT brain wo con DATE: 07/05/2022 09:29 INDICATION: Head injury. Fall. TECHNIQUE: Computed tomography (CT) of the head was performed without intravenous contrast. The mA wa s adjusted according to patient size. Iterative reconstruction technique was employed. The dose-lengt h product was 605.33 mGy-cm. COMPARISON: Head CT 06/07/2022 FINDINGS: There are scattered areas of low attenuation in the cerebral white matter. There is low att enuation in the right basal ganglia and right frontoparietal engel radiata suspicious for acute infa rct. There is no intracranial hemorrhage or abnormal intracranial mass lesion. The ventricles are nor mal in size. There are likely changes of ocular lens replacement surgeries. There is mucosal thickeni ng in the paranasal sinuses. There is a left cheek hematoma. The mastoid air cells are normal. IMPRESSION: 1. Low-attenuation in the right basal ganglia and right frontoparietal engel radiata suspicious for acute infarct. I called this result to Dr. Law. 2. Stable moderate nonspecific cerebral white matter disease, which likely represents chronic small v essel ischemic disease. Reviewed, dictated and finalized at location A. H REPAIR PERSON IMPRESSION: 1. Low-attenuation in the right basal ganglia and right frontoparietal engel r adiata suspicious for acute infarct. I called this result to Dr. Law. 2. Stable moderate nonspecific cerebral white matter disease, which likely repr esents chronic small vessel ischemic disease.
--- NOTE | ~2022-07-05 | XR_ITS ---
EXAMINATION: XR hand LT 2V DATE: 07/05/2022 14:07 INDICATION: Left hand pain and swelling. TECHNIQUE: 2 views of left hand on 3 radiographs were obtained. COMPARISON: None. FINDINGS: Scapholunate dissociation is noted. No fracture. There is diffuse osteopenia. There is alana re osteoarthritis of triscaphe joint and mild osteoarthritis of first metacarpophalangeal joint and s ome of the interphalangeal joints. 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 Reviewed, dictated and finalized at location A. RA SUPERVISOR
--- NOTE | ~2022-07-05 | XR_ITS ---
EXAMINATION: XR knee LT 3V DATE: 07/08/2022 16:12 INDICATION: Left knee pain. TECHNIQUE: 3 views of left knee were obtained. COMPARISON: Left knee radiographs 06/14/2022 FINDINGS: Bone alignment is normal. No fracture. There is severe osteoarthritis of lateral compartmen t and mild osteoarthritis of medial and patellofemoral compartments. There is chondrocalcinosis of me dial meniscus. There is a large knee joint effusion. IMPRESSION: 1. Severe left knee osteoarthritis. 2. Large knee joint effusion. Reviewed, dictated and finalized at location A. NSIC DOCUMENT EXAMINER
--- NOTE | ~2022-07-05 | XR_ITS ---
EXAMINATION: XR hip LT 2V w AP pelvis DATE: 07/05/2022 11:14 INDICATION: Left hip pain. Fall. TECHNIQUE: An anteroposterior view of the pelvis and 2 views of left hip were obtained. COMPARISON: Left hip radiographs 06/07/2022 FINDINGS: There is a bipolar left hip hemiarthroplasty in near-anatomic alignment. No fracture. No pe riprosthetic lucency to suggest loosening or infection. There is lumbar levocurvature and severe spon dylosis. There is moderate right hip osteoarthritis. IMPRESSION: 1. Bipolar left hip hemiarthroplasty in near-anatomic alignment. 2. Moderate right hip osteoarthritis. Reviewed, dictated and finalized at location A. FING ACCOUNT MANAGER
--- NOTE | ~2022-07-05 | XR_ITS ---
EXAMINATION: XR chest 1V portable DATE: 07/05/2022 10:41 INDICATION: Head injury. TECHNIQUE: A single frontal view of the chest was obtained. COMPARISON: Chest single view 12/15/2019, chest CT 05/04/2020 FINDINGS: The chest demonstrates clear lungs without pneumonia, pleural effusion, or pneumothorax. Th e heart size is normal. IMPRESSION: 1. No acute cardiopulmonary disease. Reviewed, dictated and finalized at location A. INE COUNTER AGENT
--- NOTE | ~2022-07-05 | MR_ITS ---
EXAMINATION: MR brain/brain stem wo/w con DATE: 07/05/2022 17:14 INDICATION: CVA. TECHNIQUE: Magnetic resonance imaging (MRI) of the brain and brainstem was performed without and with 12 cc IV MultiHance intravenous contrast. Sequences included sagittal and axial T1-weighted SE, axia l diffusion-weighted FS SE, axial T2*-weighted GRE, axial T2-weighted FLAIR Propeller, and axial T2-w eighted Propeller. Apparent diffusion coefficient (ADC) maps were created. COMPARISON: CT dated 07/05/2022. FINDINGS: There is diffusion restriction in the right parietal engel radiata and the right caudate n ucleus and lentiform nucleus, consistent with acute infarction. No ventriculomegaly or midline shift. No mass effect. No intracranial hemorrhage. There are scattered moderate periventricular and subcort ical white matter changes, most likely related to small vessel ischemic disease (microangiopathy). No abnormal contrast enhancement submitted no parenchymal masses or mass effect. There is mucosal thick ening of the paranasal sinuses. Orbits are symmetric without disconjugate gaze. IMPRESSION: 1. Acute infarctions of the right parietal coronal radiata and basal ganglia. No hemorrhage. 2: Moderate sinus disease. 3: Chronic age-related findings. Reviewed, dictated and finalized at location A. LE RANCHER IMPRESSION: 1. Acute infarctions of the right parietal coronal radiata and basal ganglia. N o hemorrhage. 2: Moderate sinus disease. 3: Chronic age-related findings.
--- NOTE | ~2022-07-05 | CT_ITS ---
EXAMINATION: CTA brain carotid DATE: 07/05/2022 10:24 INDICATION: Acute cerebral infarct. TECHNIQUE: Computed tomographic angiography (CTA) of the head was performed with 100 mL Omnipaque-350 intravenous contrast. CTA of the neck was performed with intravenous contrast. Automated exposure co ntrol and iterative reconstruction technique were employed. The dose-length product was 978.71 mGy-cm . Maximum intensity projection and volume rendered 3D-reconstructions were created by the technM-DAQ t on a separate workstation. COMPARISON: Head CT 07/05/2022 FINDINGS: HEAD CTA: There are scattered areas of low attenuation in the cerebral white matter. There is low att enuation in the right basal ganglia and right frontoparietal engel radiata suspicious for acute infa rct. There is no intracranial hemorrhage or abnormal intracranial mass lesion. The ventricles are normal in size. There are likely changes of ocular lens replacement surgeries. There is mucosal t hickening in the paranasal sinuses. There is a left cheek hematoma with active extravasation of contr ast. The mastoid air cells are normal. Left vertebral artery is dominant. There is no significant yas nosis of basilar artery or the posterior cerebral arteries. The posterior communicating arteries are normal. There is no significant stenosis of the intracranial internal carotid arteries or anterior or middle cerebral arteries. Anterior communicating artery is normal. There is no aneurysm. NECK CTA: There are no pathologically enlarged lymph nodes. There are nodules in the thyroid measurin g up to 6 mm, likely not clinically significant. There is no significant stenosis of the vertebral ar teries. There is plaque in the proximal internal carotid arteries. There is 0% stenosis of the proxim al right internal carotid artery relative to normal distal artery lumen diameter (NASCET criteria). T here is 0% stenosis of the proximal left internal carotid artery relative to normal distal artery lum en diameter. There is severe cervical spondylosis. IMPRESSION: 1. Low-attenuation in the right basal ganglia and right frontoparietal engel radiata suspicious for acute infarct. 2. Moderate nonspecific cerebral white matter disease, which likely represents chronic small vessel i schemic disease. 3. No aneurysm or significant intracranial arterial stenosis. 4. 0% stenosis of the proximal internal carotid arteries relative to normal distal artery lumen diame ters (NASCET criteria). 5. Left cheek hematoma with active extravasation of contrast. Reviewed, dictated and finalized at location A. L CANS SUPERVISOR IMPRESSION: 1. Low-attenuation in the right basal ganglia and right frontoparietal engel r adiata suspicious for acute infarct. 2. Moderate nonspecific cerebral white matter disease, which likely represents chronic small vessel ischemic disease. 3. No aneurysm or significant intracranial arterial stenosis. 4. 0% stenosis of the proximal internal carotid arteries relative to normal dis aki artery lumen diameters (NASCET criteria). 5. Left cheek hematoma with active extravasation of contrast.
--- NOTE | ~2022-07-05 | CT_ITS ---
EXAMINATION: CT facial & cervical spine wo DATE: 07/05/2022 09:31 INDICATION: Head injury. Left facial weakness. TECHNIQUE: Computed tomography (CT) of the maxillofacial region and cervical spine was performed with out intravenous contrast. Automated exposure control and iterative reconstruction technique were empl oyed. The dose-length product was 185.10 mGy-cm. COMPARISON: CT maxillofacial 01/21/20 FINDINGS: MAXILLOFACIAL CT: There are likely changes of ocular lens replacement surgeries. There is a hematoma in the left cheek. There is mucosal thickening in the paranasal sinuses. There is leftward deviation the nasal septum. No fracture. CERVICAL SPINE CT: Bone alignment is normal. There is developmental anterior and posterior fusion at C2-C3. There is sev erely decreased disc height from C3-C4 through C7-T1 with endplate remodeling. The following disc lev els are specifically discussed: C2-C3: There is ankylosis of the uncovertebral joints without hypertrophy. There is ankylosis of the facet joints without hypertrophy. There is no neural foraminal stenosis. There is no central canal st enosis. C3-C4: There is severe bilateral uncovertebral joint osteoarthritis. There is severe bilateral facet joint osteoarthritis. There is mild bilateral neural foraminal stenosis. There is mild central canal stenosis. C4-C5: There is severe bilateral uncovertebral joint osteoarthritis. There is severe bilateral facet joint osteoarthritis. There is mild bilateral neural foraminal stenosis. There is mild central canal stenosis. C5-C6: There is severe right and moderate left uncovertebral joint osteoarthritis. There is severe bi lateral facet joint osteoarthritis. There is mild bilateral neural foraminal stenosis. There is mild central canal stenosis. C6-C7: There is severe bilateral uncovertebral joint osteoarthritis. There is severe bilateral facet joint osteoarthritis. There is mild bilateral neural foraminal stenosis. There is mild central canal stenosis. C7-T1: There is severe right and moderate left uncovertebral joint osteoarthritis. There is severe bi lateral facet joint osteoarthritis. There is mild bilateral neural foraminal stenosis. There is mild central canal stenosis. IMPRESSION: 1. No fracture. 2. Severe cervical spondylosis. Reviewed, dictated and finalized at location A. ESTATE INTERN
--- NOTE | 2022-07-05 09:22 | ECG_ITS ---
Measurements Intervals [place] Rate: 77 P: -40 SC: 119 QRS: -24 QRSD: 102 T: 51 QT: 416 QTc: 471 Interpretive Statements BASELINE ARTIFACT, SUBOPTIMAL ECG QUALITY SUSPECT SINUS RHYTHM WITH SINUS ARRHYTHMIA LEFTWARD AXIS ABNORMAL ECG COMPARED TO ECG 06/07/2022 11:56:48 NO GROSS CHANGES Electronically Signed On 07-05-2022 15:27:29 MEDICATION AIDE by Nathanael Herron M.D.
[2022-07-05 09:37] LABS: Glucose Point of Care 108 mg/dl (65-105)
[2022-07-05 09:40] LABS: Basophils Percent Auto 0.5 % (0.2-1.2); Eosinophils Absolute Auto 0.1 K/mm3 (0-0.3); Eosinophils Percent Auto 2.4 % (0-4.4); Hematocrit 34.9 % (37.0-47.0); Hemoglobin 11.3 g/dL (12.0-15.0); Immature Granulocyte Absolute 0.02 K/mm3 (0.00-0.031); Immature Granulocyte Percent A 0.4 % (0-0.5); Lymphocytes Absolute Auto 1.39 K/mm3 (0.9-3.2); Lymphocytes Percent Auto 25.2 % (18.3-44.2); Mean Corpuscular HGB Conc 32.4 g/dl (32-36); Mean Corpuscular Hemoglobin 31.4 pg (26-34); Mean Corpuscular Volume 96.9 fl (80-100); Mean Platelet Volume 11.3 fl (7.4-10.4); Monocytes Absolute Auto 0.6 K/mm3 (0.1-0.6); Monocytes Percent Auto 10.5 % (2.6-8.5); Neutrophils Absolute Auto 3.4 K/mm3 (1.3-6.7); Platelet Count Result 144 k/mm3 (150-375); Red Cell Distribution Width 13.2 % (11.5-14.5); White Blood Count 5.5 K/mm3 (4.5-10.0)
[2022-07-05 09:51] LABS: INR 1.1; Prothrombin Time 13.4 Seconds (11.1-14.7)
--- NOTE | 2022-07-05 09:54 | ED.NEUROSD ---
HPI - Neuro Symptoms/Deficit General Chief Complaint: Suspected CVA Stated Complaint: fall 729 Time Seen by Provider: 07/05/22 09:23 History of Present Illness HPI Narrative: 87-year-old female with history of atrial fibrillation that was stopped Eliquis 2 weeks ago presenting to the emergency department for evaluation after having a ground-level fall this morning with a new facial droop. Patient's last normal was last night when she was seen by family. Patient woke up this morning and had no notice of any facial droop but patient was not seen by nursing staff. Patient does have frequent falls and had a fall again this morning injuring her left face. EMS was called and some left-sided facial droop was noted. Patient denies any complaints other than facial pain. Due to concern of an acute stroke patient was sent to CT as a code stroke. CT was concerning for acute stroke at the basal ganglia/engel radiata. No facial or neck fractures were seen on head neck CT. Patient does have history of chronic kidney disease, type 2 diabetes, high cholesterol, valvular disease, atrial fibrillation. Related Data Home Medications Medication Instructions Recorded Confirmed ascorbate calcium (vitamin C) 500 500 mg PO DAILY 04/19/19 07/05/22 mg tablet vitamin B complex 1 tablet PO DAILY 04/19/19 07/05/22 multivit with 1 tablet PO DAILY 09/21/19 07/05/22 [id number] 8 mg iron-400 mcg-300 mcg tablet (Centrum Silver Women) calcium carbonate 600 mg-vitamin 1 tablet PO DAILY 01/02/21 07/05/22 D3 20 mcg (800 unit) tablet vitamin E (dl, acetate) 180 mg 180 mg PO DAILY 01/02/21 07/05/22 (400 unit) capsule irbesartan 300 mg tablet 300 mg PO DAILY 07/05/22 07/05/22 metoprolol tartrate 25 mg tablet 12.5 mg PO BID 07/05/22 07/05/22 rosuvastatin 10 mg tablet 40 mg PO HS 07/05/22 07/05/22 sitagliptin phosphate 100 mg 50 mg PO DAILY 07/05/22 07/05/22 tablet (Januvia) Allergies Allergy/AdvReac Type Severity Reaction Status Date / Time No Known Allergies Allergy Unknown Verified 06/07/22 11:58 Review of Systems Review of Systems: CONSTITUTIONAL: Denies fever, chills, or sweats. EYES: Denies visual changes, redness, or discharge. ENT: Denies rhinorrhea, congestion, sore throat, or otalgia. CARDIOVASCULAR: Denies chest pain, palpitations, or edema. RESPIRATORY: Denies cough or dyspnea. GASTROINTESTINAL: Denies abdominal pain, nausea, vomiting, or diarrhea. GENITOURINARY: Denies dysuria or hematuria. SKIN: Facial injury MUSCULOSKELETAL: Denies back pain, joint pain, or myalgia. NEUROLOGIC: See [facility] Past Medical History Medical History (Updated 07/05/22 @ 18:56 by Omar Law MD) Benign essential hypertension BMI 28.0-28.9,adult Cellulitis Chronic kidney disease, stage 3 Baseline creatinine around 1.20. Deep venous thrombosis Degenerative joint disease Diastolic dysfunction Recent echo showed mild mitral valve regurgitation, grade 1 diastolic dysfunction, ejection fraction of 69%. Hard of hearing Hyperlipidemia Kidney stones Memory loss Parathyroid adenoma Status post resection. Paroxysmal atrial fibrillation Followed by Dr. Alejo Del Rio. The patient had 1 episode atrial fibrillation following her hip replacement surgery in May 2018. Polymyalgia rheumatica In remission Valvular heart disease Echocardiogram May 2018 demonstrated EF of 70-75%, grade 1 diastolic dysfunction, mild LVH, moderate mitral regurgitation, mild aortic insufficiency, mild pulmonary hypertension with RVSP of 40-45, mild tricuspid regurgitation, mild pulmonic insufficiency Surgical History Surgical History (Updated 07/05/22 @ 15:04 by Disha Mcdermott NP) History of bunionectomy of both great toes History of left hip replacement May 2018 secondary to fracture from fall History of parathyroidectomy History of removal of pigmented skin lesion Status post cataract extraction of both eyes with insertion of intraoc
[2022-07-05 10:00] LABS: Alanine Aminotransferase 19 U/L (6-35); Albumin Level 3.7 g/dL (3.5-5.1); Alkaline Phosphatase 104 U/L (38-126); Anion Gap 5 mmol/L (8-16); Aspartate Amino Transferase 29 U/L (14-36); Bilirubin,Total 0.7 mg/dL (0.2-1.3); Blood Urea Nitrogen 19 mg/dL (7-17); Calcium 9.1 mg/dL (8.4-10.2); Carbon Dioxide 23 mmol/L (22-30); Chloride 108 mmol/L (98-107); Estimated CRCL calculation 26 ml/min; Estimated Glomerular Filt Rate 47; Glucose 105 mg/dL (65-110); Potassium 4.5 mmol/L (3.4-5.0); Sodium 136 mmol/L (137-145)
[2022-07-05 10:07] LABS: Troponin I < 0.012 ng/mL (0.000-0.034)
[2022-07-05 12:23] LABS: Influenza A QL RT-PCR Negative (Negative); Influenza B QL RT-PCR Negative (Negative); SARS-CoV-2 RNA PCR Negative
[2022-07-05] MEDS: ASPIRIN 81 MG CHEWABLE TABLET 324 MG PO (13:32)
[2022-07-05] MEDS: SODIUM CHLORIDE 0.9% IV 1,000 ML 75 ML IV CONT (13:33)
--- NOTE | 2022-07-05 13:41 | PM.IMHP ---
H&P: HPI History of Present Illness Date/Time: 07/05/22 13:41 Chief Complaint: Fall Narrative: This is an 87-year-old female patient who was just discharged from this hospital on 06/11/2022 after she sustained a fall. The patient has a history of atrial fibrillation and has been having history of falls. The patient was taken off of her Eliquis due to the falls. 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 The patient had a ground level fall this morning. She denied any chest pain or palpitation she denied any dizziness. No fever no chills. No presyncope. The patient woke up this morning and did not notice any facial droop but was not seen by any of the nursing staff. The patient fell and landed on her left side. EMS was called and she presented with new onset of left facial droop. She denied any facial pain the patient did receive 2 sutures to her left forehead in the emergency room. The left side of her body slightly weaker than the right. She has left pronator drifting. She complains of left hip and left arm pain. Left hand x-ray shows. Scapholunate dissociation. 2. Polyarticular osteoarthritis. Ortho has been consulted. Hip and pelvis x-ray was read as follows1. Bipolar left hip hemiarthroplasty in near-anatomic alignment. 2. Moderate right hip osteoarthritis. Chest x-ray was read as no acute cardiopulmonary disease. Head and neck CTa was read as follows. Low-attenuation in the right basal ganglia and right frontoparietal engel radiata suspicious for acute infarct. 2. Moderate nonspecific cerebral white matter disease, which likely represents chronic small vessel ischemic disease. 3. No aneurysm or significant intracranial arterial stenosis. 4. 0% stenosis of the proximal internal carotid arteries relative to normal distal artery lumen diameters (NASCET criteria). 5. Left cheek hematoma with active extravasation of contrast. The patient has left-sided weakness as well as a left facial droop. She has a left frontal lobe hematoma laceration. The laceration was repaired by the ED physician with 2 sutures. Head cervical spine facial bones CT read as no fracture. Severe Cervical spondylosis. Head CT read as the followingLow-attenuation in the right basal ganglia and right frontoparietal engel radiata suspicious for acute infarct. I called this result to Dr. Law. 2. Stable moderate nonspecific cerebral white matter disease, which likely represents chronic small vessel ischemic disease. Neurology has been consulted. The patient was given 4 chewable baby aspirin. The patient stated that she was thirsty attempted to give her drink through the strong the patient began choking. I explained that she needed to be NPO until she has a swallow study. The patient is being admitted to inpatient status on the date of service of 07/05/2022. Review of Systems Review of Systems: See HPI All systems reviewed & are unremarkable except as noted in HPI and below Constitutional: Constitutional: Reports as per HPI and Reports no additional constitutional complaints Eyes: Eyes: Reports as per HPI and Reports no additional eye complaints ENT: Reports system reviewed and no additional complaints, except as documented and Reports Normal hearing present Cardiovascular: Cardiovascular: Reports no additional cardiovascular complaints Respiratory: Respiratory: Reports no additional respiratory complaints and Reports no additional respiratory complaints Gastrointestinal: Gastrointestinal: Reports as per HPI and Reports no additional gastrointestinal complaints Musculoskeletal: Musculoskeletal: Reports no additional musculoskeletal complaints Integumentary/Breasts: Skin/Breast: Reports system reviewed and no additional complaints, except as docu and Reports as per HPI Neurologic: Reports system reviewed and no additional complaints, except as documented, Reports as per HPI and Reports Normal hearing present Psychiatri
[2022-07-05] MEDS: IPRATROPIUM BR 0.02% INH SOLN 0.5 MG/2.5 ML VIAL INHALATION ×2 (14:11→20:44)
[2022-07-05] MEDS: ALBUTEROL SULFATE NEB 2.5 MG/3 ML INH INHALATION ×2 (14:11→20:44)
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
[2022-07-05 14:33] LABS: Appearance Urine Clear (Clear); Bilirubin Urine Negative (Negative); Blood Urine Negative (Negative); Color Urine Yellow (Yellow); Glucose Urine UA Negative (Negative); Ketones Urine Negative (Negative); Leukocyte Esterase Ur Negative LEU/UL (Negative); Nitrate Urine Negative (Negative); Protein Urine Negative (Negative); Urobilinogen Urine 0.2 mg/dL (<2.0)
[2022-07-05 15:04] LABS: Add Urine Microscopic? NO
--- NOTE | 2022-07-05 16:16 | ADMGEN ---
This patient, Nery Agrawal, was admitted to Medical Room 345-01. Patient/family oriented to hospital policies and general routines including ID bracelet, bed and alarms, visiting hours, pain management, procedures, bathroom and other care routines, personal items, smoking policy, room service/diet, and visiting hours. Information on how to activate the Rapid Response Team has been discussed. Patient/Family are encouraged to report perceived risks to care and to ask questions if they do not understand what they are told or what they should do.
--- NOTE | 2022-07-05 16:36 | PCSTNOTE ---
Please refer to the Bedside Swallow Evaluation in the EMR. Please note, silent aspiration cannot be ruled out at bedside.
[2022-07-05 16:46] LABS: Glucose Point of Care 98 mg/dl (65-105)
[2022-07-05] MEDS: METOPROLOL TARTRATE 12.5 MG TABLET PO (18:53)
[2022-07-05 20:21] LABS: Glucose Point of Care 134 mg/dl (65-105)
[2022-07-05] MEDS: ROSUVASTATIN 10 MG TABLET 40 MG PO (21:39)
[2022-07-06] VITALS (17 sets, daily range): BP systolic 139–161; BP diastolic 62–77; PULSE 59–88; RESP 17–20; TEMP 36.7–36.9; O2SAT 97–99
--- NOTE | 2022-07-06 | ECHO_ITS ---
Patient Info Name: Nery Agrawal Age: 87 years : 1935 Gender: Female Ht: 60 in Wt: 140 lbs BSA: 1.66 m2 HR: 83 bpm BP: 142 / 65 mmHg Heart Rhythm: Sinus Rhythm Technical Quality: Good Exam Date: 07/06/2022 7:36 AM Exam Location: [facility] Patient Status: Inpatient Admit Date: 07/05/2022 Staff Ordering Physician: Disha Mcdermott NP Pediatric Medical Assistant: Jackeline Flores RDCS Attending Provider: Gaston Linder MD Referring Physician: Sharron RIOS; Exam Type: CA echo dop bubble study w con Study Info Indications I63.231 - Cerebral infarction due to unspecified occlusion or stenosis of right carotid arteries Complete two-dimentional, color flow and Doppler transthoracic echocardiogram is performed with agitated saline and with contrast to opacify the left ventricle and to improve the delineation of the left ventricle endocardial borders. Contrast/Agitated Saline Contrast/Ag. Saline: Agitated Saline Amount: 4.00 ml Administered By: Jackeline Flores [facility] Summary 1. Left ventricular chamber dimension is normal. 2. Left ventricular systolic function is normal, estimated at 65-70%. 3. There is mildly increased left ventricular wall thickness. 4. Left ventricular septal wall motion is abnormal with septal motion related to bundle branch block. 5. The left ventricular diastolic function is grade I diastolic dysfunction. 6. There is trace mitral valve regurgitation. 7. No evidence for [id number] shunt at the atrial level with and without Valsalva. Recommendations * Consider transesophageal echocardiogram if clinically indicated. Left Ventricle Left ventricular chamber dimension is normal. Left ventricular systolic function is normal, estimated at 65-70%. There is mildly increased left ventricular wall thickness. Left ventricular septal wall motion is abnormal with septal motion related to bundle branch block. The left ventricular diastolic function is grade I diastolic dysfunction. Right Ventricle Right ventricular chamber dimension is normal. Right ventricular systolic function is normal. Left Atria Left atrial chamber dimension is normal. Right Atria Right atrial chamber dimension is normal. Atrial Septum No evidence for [id number] shunt at the atrial level with and without Valsalva. Aortic Valve The aortic valve is probable trileaflet. There is mild aortic valve sclerosis. There is no aortic valve stenosis. There is mild aortic valve regurgitation. Pulmonic Valve The pulmonic valve is not well visualized. There is mild pulmonic regurgitation. Mitral Valve The mitral valve has normal leaflets. There is trace mitral valve regurgitation. The mitral valve annulus is mildly calcified. Tricuspid Valve The tricuspid valve leaflets are normal. There is mild tricuspid valve regurgitation. No pulmonary hypertension, estimated pulmonary arterial systolic pressure is 29 mmHg. Pericardium/Pleural The pericardium appears epicardial fat pad. There is small pericardial effusion. Inferior Vena Cava Normal inferior vena cava with >50% collapse upon inspiration consistent with normal right atrial pressure, 5 mmHg. Aorta The aortic root size at the sinus of Valsalva is normal. There is mild aortic atherosclerosis. Left Ventricular Outflow Tract Name Value
[2022-07-06] MEDS: IPRATROPIUM BR 0.02% INH SOLN 0.5 MG/2.5 ML VIAL INHALATION ×3 (02:50→21:36)
[2022-07-06] MEDS: ALBUTEROL SULFATE NEB 2.5 MG/3 ML INH INHALATION ×3 (02:50→21:36)
[2022-07-06 06:55] LABS: Basophils Percent Auto 0.6 % (0.2-1.2); Eosinophils Absolute Auto 0.2 K/mm3 (0-0.3); Eosinophils Percent Auto 3.6 % (0-4.4); Hematocrit 31.7 % (37.0-47.0); Hemoglobin 10.5 g/dL (12.0-15.0); Immature Granulocyte Absolute 0.02 K/mm3 (0.00-0.031); Immature Granulocyte Percent A 0.4 % (0-0.5); Immature Platelet Fraction Pct 5.9 % (0.9-11.2); Lymphocytes Absolute Auto 1.11 K/mm3 (0.9-3.2); Lymphocytes Percent Auto 21.9 % (18.3-44.2); Mean Corpuscular HGB Conc 33.1 g/dl (32-36); Mean Corpuscular Hemoglobin 31.3 pg (26-34); Mean Corpuscular Volume 94.6 fl (80-100); Mean Platelet Volume 11.1 fl (7.4-10.4); Monocytes Absolute Auto 0.5 K/mm3 (0.1-0.6); Monocytes Percent Auto 9.5 % (2.6-8.5); Neutrophils Absolute Auto 3.2 K/mm3 (1.3-6.7); Platelet Count Result 129 k/mm3 (150-375); Red Blood Count 3.35 M/mm3 (4.2-5.4); Red Cell Distribution Width 13.2 % (11.5-14.5); White Blood Count 5.1 K/mm3 (4.5-10.0)
[2022-07-06 07:05] LABS: Alanine Aminotransferase 17 U/L (6-35); Albumin Level 3.3 g/dL (3.5-5.1); Alkaline Phosphatase 93 U/L (38-126); Anion Gap 7 mmol/L (8-16); Aspartate Amino Transferase 27 U/L (14-36); Bilirubin,Total 0.6 mg/dL (0.2-1.3); Blood Urea Nitrogen 14 mg/dL (7-17); Calcium 8.7 mg/dL (8.4-10.2); Carbon Dioxide 23 mmol/L (22-30); Chloride 107 mmol/L (98-107); Estimated CRCL calculation 29 ml/min; Estimated Glomerular Filt Rate 52; Glucose 88 mg/dL (65-110); Magnesium 1.6 mg/dL (1.6-2.3); Potassium 3.9 mmol/L (3.4-5.0); Sodium 137 mmol/L (137-145)
[2022-07-06 07:06] LABS: Lactic Acid Reflex 0.6 mmol/L (0.7-2.0)
[2022-07-06] MEDS: PERFLUTREN LIPID MICROSPHERES 1.5 ML VIAL DILUTED TO 10 ML TOTAL VOLUME IV PUSH (07:30)
[2022-07-06 07:39] LABS: Hemoglobin A1C 5.5 % (<5.7)
--- NOTE | 2022-07-06 07:58 | PM.IMPN ---
Progress Note: A&P Assessment and Plan (1) CVA (cerebral vascular accident): Code(s): I63.9 - Cerebral infarction, unspecified Status: Acute Assessment and Plan: Acute CVA Head CTA was read1. Low-attenuation in the right basal ganglia and right frontoparietal engel radiata suspicious for acute infarct. 2. Moderate nonspecific cerebral white matter disease, which likely represents chronic small vessel ischemic disease. 3. No aneurysm or significant intracranial arterial stenosis. 4. 0% stenosis of the proximal internal carotid arteries relative to normal distal artery lumen diameters (NASCET criteria). 5. Left cheek hematoma with active extravasation of contrast. -neurology has been consulted -continue with daily aspirin, start Lipitor 80 mg p.o., follow-up lipid panel Patient has passed the swallowing test, without the risk of aspiration MRI suggest Acute infarctions of the right parietal coronal radiata and basal ganglia. No hemorrhage. -PT and OT evaluation greatly be appreciated -health care coordinator for possible rehab. f/u echo Paroxysmal AFib -she does have a history of having AFib and is currently in sinus rhythm. The patient was recently taken off of her anticoagulation due to her frequent falls. Given current acute stroke, patient need to take a blood thinner, manage per neurologist hold hypertension medication your hypertension permission, except systolic BP above 220 or diastolic above 110 day (2) CKD (chronic kidney disease): Qualifiers: Chronic kidney disease stage: stage 2 (mild) Qualified Code(s): N18.2 - Chronic kidney disease, stage 2 (mild) Code(s): N18.9 - Chronic kidney disease, unspecified Status: Acute Assessment and Plan: -patient is at her baseline will continue to monitor (3) A-fib: Qualifiers: Atrial fibrillation type: unspecified Qualified Code(s): I48.91 - Unspecified atrial fibrillation Code(s): I48.91 - Unspecified atrial fibrillation Status: Acute Assessment and Plan: The patient is currently in sinus rhythm. Will resume blood thinner if okay for neurologist. (4) Diastolic dysfunction: Code(s): I51.89 - Other ill-defined heart diseases Status: Acute Assessment and Plan: Repeat echo with bubble study. (5) Hyperlipidemia: Qualifiers: Hyperlipidemia type: mixed hyperlipidemia Qualified Code(s): E78.2 - Mixed hyperlipidemia Code(s): E78.5 - Hyperlipidemia, unspecified Status: Acute Assessment and Plan: Continue with rosuvastatin (6) Benign essential hypertension: Code(s): I10 - Essential (primary) hypertension Status: Acute Assessment and Plan: Continue with metoprolol and (7) DM type 2 (diabetes mellitus, type 2): Qualifiers: Diabetes mellitus complication status: without complication Diabetes mellitus care home insulin use: without care home use Qualified Code(s): E11.9 - Type 2 diabetes mellitus without complications Code(s): E11.9 - Type 2 diabetes mellitus without complications Status: Acute Assessment and Plan: Accu-Cheks AC and HS with sliding scale insulin hypoglycemic protocol. -check A1c. -continue with Januvia (8) Left wrist injury: Code(s): S69.92XA - Unspecified injury of left wrist, hand and finger(s), initial encounter Status: Acute Assessment and Plan: Ortho has been consulted.1. Scapholunate dissociation. Subjective Date/time seen: 07/06/22 07:58 I saw and examined patient. Patient denies headache, vision change, no new focal weakness. The patient has weakness of left arm and the left leg. Patient in as a palpitation, chest pain, shortness of breath Review of Systems Review of Systems: All systems reviewed & are unremarkable except as noted in HPI and below Constitutional: Constitutional: Reports as per HPI and Reports no additional constitutional complaints
[2022-07-06] MEDS: ASCORBIC ACID 500 MG TABLET PO (08:38)
[2022-07-06] MEDS: IRBESARTAN 150 MG TABLET 300 MG PO (08:38)
[2022-07-06] MEDS: VITAMIN E 400 UNIT CAPSULE PO (08:39)
[2022-07-06] MEDS: VITAMIN B COMPLEX CAPSULE 1 CAP PO (08:39)
[2022-07-06] MEDS: METOPROLOL TARTRATE 12.5 MG TABLET PO ×2 (08:40→16:32)
[2022-07-06 08:44] LABS: Glucose Point of Care 100 mg/dl (65-105)
--- NOTE | 2022-07-06 09:04 | PCPTNOTE ---
Physical therapy is waiting on ortho reccomendations for weightbearing status will see after weight bearing status is clarified.
[2022-07-06] MEDS: THERAPEUTIC MULTIVITAMINS/MINERALS TAB (*BKC) 1 TABLET PO (09:37)
[2022-07-06 12:16] LABS: Glucose Point of Care 117 mg/dl (65-105)
--- NOTE | 2022-07-06 15:54 | PCOTNOTE ---
Occupational therapy evaluation not completed due to waiting on ortho consult; will complete when weightbearing status is confirmed.
[2022-07-06 17:00] LABS: Glucose Point of Care 150 mg/dl (65-105)
[2022-07-06] MEDS: SODIUM CHLORIDE 0.9% IV 1,000 ML 75 ML IV CONT (18:28)
[2022-07-06] MEDS: ROSUVASTATIN 10 MG TABLET 40 MG PO (20:15)
[2022-07-06 20:21] LABS: Glucose Point of Care 139 mg/dl (65-105)
[2022-07-07] VITALS (19 sets, daily range): BP systolic 143–162; BP diastolic 70–82; PULSE 52–96; RESP 14–20; TEMP 36.1–37; O2SAT 98–100
[2022-07-07] MEDS: ALBUTEROL SULFATE NEB 2.5 MG/3 ML INH INHALATION ×4 (01:43→20:41)
[2022-07-07] MEDS: IPRATROPIUM BR 0.02% INH SOLN 0.5 MG/2.5 ML VIAL INHALATION ×4 (01:43→20:41)
[2022-07-07 08:13] LABS: Glucose Point of Care 95 mg/dl (65-105)
[2022-07-07] MEDS: VITAMIN B COMPLEX CAPSULE 1 CAP PO (08:44)
[2022-07-07] MEDS: IRBESARTAN 150 MG TABLET 300 MG PO (08:44)
[2022-07-07] MEDS: ASCORBIC ACID 500 MG TABLET PO (08:44)
[2022-07-07] MEDS: CLOPIDOGREL BISULFATE 75 MG TABLET PO (08:45)
[2022-07-07] MEDS: ASPIRIN 81 MG ENTERIC TABLET PO (08:45)
[2022-07-07] MEDS: VITAMIN E 400 UNIT CAPSULE PO (08:45)
[2022-07-07] MEDS: METOPROLOL TARTRATE 12.5 MG TABLET PO ×2 (08:45→18:11)
[2022-07-07] MEDS: THERAPEUTIC MULTIVITAMINS/MINERALS TAB (*BKC) 1 TABLET PO (08:45)
--- NOTE | 2022-07-07 10:48 | PCPTNOTE ---
[id number] waiting on ortho consult, checked with nursing not aware ortho has seen patient. Will check on patient again tomorrow.
--- NOTE | 2022-07-07 11:25 | PM.IMPN ---
Progress Note: A&P Assessment and Plan (1) CVA (cerebral vascular accident): Code(s): I63.9 - Cerebral infarction, unspecified Status: Acute Assessment and Plan: Acute CVA Head CTA was read1. Low-attenuation in the right basal ganglia and right frontoparietal engel radiata suspicious for acute infarct. 2. Moderate nonspecific cerebral white matter disease, which likely represents chronic small vessel ischemic disease. 3. No aneurysm or significant intracranial arterial stenosis. 4. 0% stenosis of the proximal internal carotid arteries relative to normal distal artery lumen diameters (NASCET criteria). 5. Left cheek hematoma with active extravasation of contrast. -neurology has been consulted. f/u recs -continue with daily aspirin 81 mg , start Lipitor 40 mg p.o. plavix 75 mg daily po follow-up lipid panel Patient has passed the swallowing test, without the risk of aspiration MRI suggest Acute infarctions of the right parietal coronal radiata and basal ganglia. No hemorrhage. -PT and OT evaluation greatly be appreciated -career and technology education teacher for possible rehab. f/u echo Paroxysmal AFib -she does have a history of having AFib and is currently in sinus rhythm. The patient was recently taken off of her anticoagulation due to her frequent falls. Given current acute stroke, patient need to take a blood thinner, manage per neurologist resume hypertension medication hypertension permission is over and optimize med to control BP at target range irbesartan 100 mg daily p.o., metoprolol 12.5 mg b.i.d. p.o. add norvasc 10 mg daily po (2) CKD (chronic kidney disease): Qualifiers: Chronic kidney disease stage: stage 2 (mild) Qualified Code(s): N18.2 - Chronic kidney disease, stage 2 (mild) Code(s): N18.9 - Chronic kidney disease, unspecified Status: Acute Assessment and Plan: -patient is at her baseline will continue to monitor (3) A-fib: Qualifiers: Atrial fibrillation type: unspecified Qualified Code(s): I48.91 - Unspecified atrial fibrillation Code(s): I48.91 - Unspecified atrial fibrillation Status: Acute Assessment and Plan: The patient is currently in sinus rhythm. Will resume blood thinner if okay for neurologist. (4) Diastolic dysfunction: Code(s): I51.89 - Other ill-defined heart diseases Status: Acute Assessment and Plan: Repeat echo with bubble study. (5) Hyperlipidemia: Qualifiers: Hyperlipidemia type: mixed hyperlipidemia Qualified Code(s): E78.2 - Mixed hyperlipidemia Code(s): E78.5 - Hyperlipidemia, unspecified Status: Acute Assessment and Plan: Continue with rosuvastatin (6) Benign essential hypertension: Code(s): I10 - Essential (primary) hypertension Status: Acute Assessment and Plan: Continue with metoprolol and (7) DM type 2 (diabetes mellitus, type 2): Qualifiers: Diabetes mellitus care home insulin use: without care home use Diabetes mellitus complication status: without complication Qualified Code(s): E11.9 - Type 2 diabetes mellitus without complications Code(s): E11.9 - Type 2 diabetes mellitus without complications Status: Acute Assessment and Plan: Accu-Cheks AC and HS with sliding scale insulin hypoglycemic protocol. -check A1c. -continue with Januvia (8) Left wrist injury: Code(s): S69.92XA - Unspecified injury of left wrist, hand and finger(s), initial encounter Status: Acute Assessment and Plan: Ortho has been consulted.1. Scapholunate dissociation. Subjective Date/time seen: 07/07/22 11:25 patient feels better today, has no new issue even overnight, denies headache, no new focal deficits. blood pressure is not well controlled yet Exam Narrative: GENERAL: Pleasant, in no acute distress. Well-nourished. - EYES: EOMI. Anicteric. - HENT: Moist mucous membranes. Left facial taryn
--- NOTE | 2022-07-07 14:22 | PCOTNOTE ---
Waiting on ortho consult before completing OT evaluation. Will check again tomorrow.
[2022-07-07] MEDS: amLODIPine BESYLATE 5 MG TABLET 10 MG PO (16:18)
[2022-07-07 16:41] LABS: Glucose Point of Care 157 mg/dl (65-105)
[2022-07-07] MEDS: SODIUM CHLORIDE 0.9% IV 1,000 ML 75 ML IV CONT ×2 (17:22→21:47)
[2022-07-07] MEDS: ROSUVASTATIN 10 MG TABLET 40 MG PO (21:47)
[2022-07-08] VITALS (18 sets, daily range): BP systolic 119–155; BP diastolic 67–129; PULSE 70–93; RESP 18–20; TEMP 36.3–36.6; O2SAT 97–100
[2022-07-08] MEDS: ALBUTEROL SULFATE NEB 2.5 MG/3 ML INH INHALATION ×3 (08:27→20:57)
[2022-07-08] MEDS: IPRATROPIUM BR 0.02% INH SOLN 0.5 MG/2.5 ML VIAL INHALATION ×3 (08:28→20:57)
[2022-07-08 09:09] LABS: Glucose Point of Care 94 mg/dl (65-105)
[2022-07-08] MEDS: IRBESARTAN 150 MG TABLET 300 MG PO (10:47)
[2022-07-08] MEDS: CLOPIDOGREL BISULFATE 75 MG TABLET PO (10:47)
[2022-07-08] MEDS: amLODIPine BESYLATE 5 MG TABLET 10 MG PO (10:47)
[2022-07-08] MEDS: ASPIRIN 81 MG ENTERIC TABLET PO (10:47)
[2022-07-08] MEDS: ASCORBIC ACID 500 MG TABLET PO (10:47)
[2022-07-08] MEDS: VITAMIN E 400 UNIT CAPSULE PO (10:48)
[2022-07-08] MEDS: THERAPEUTIC MULTIVITAMINS/MINERALS TAB (*BKC) 1 TABLET PO (10:48)
[2022-07-08] MEDS: METOPROLOL TARTRATE 12.5 MG TABLET PO ×2 (10:48→17:36)
[2022-07-08] MEDS: VITAMIN B COMPLEX CAPSULE 1 CAP PO (10:48)
[2022-07-08] MEDS: SODIUM CHLORIDE 0.9% IV 1,000 ML 75 ML IV CONT (10:49)
[2022-07-08 12:31] LABS: Glucose Point of Care 102 mg/dl (65-105)
--- NOTE | 2022-07-08 13:00 | PCPTNOTE ---
Spoke with hospitalist regarding pt mobility and pending ortho consult. Hospitalist OK patient participating in therapy with L wrist remaining non-weight bearing until cleared by ortho doctor. RN aware
--- NOTE | 2022-07-08 14:52 | PM.CNOR ---
Assessment and Plan Assessment and plan (1) Left wrist injury: Code(s): S69.92XA - Unspecified injury of left wrist, hand and finger(s), initial encounter <HAMLET Morocho - Last Filed: 07/09/22 07:26> Status: Acute <HAMLET Mroocho - Last Filed: 07/09/22 07:26> Assessment and Plan: Left wrist arthritis. X-ray was obtained in the emergency due to redness in the wrist. The patient denies any significant pain or complaints. It appears benign on examination. 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 No further treatment for the wrist required. <Slade Page MD - Last Filed: 07/08/22 16:59> (2) Left knee pain: Code(s): M25.562 - Pain in left knee <HMALET Morocho - Last Filed: 07/09/22 07:26> Status: Acute <HAMLET Morocho - Last Filed: 07/09/22 07:26> Assessment and Plan: Severe left knee pain. Known history of arthritis over many years. Symptoms have worsened recently. Previously she was walking fairly well with her walker. She has had multiple falls recently with associated bruising in the anterior knee. X-rays show no fractures but severe valgus arthritis. I aspirated and injected the knee. She tolerated this well. I obtained 60 mL of slightly blood-tinged serous fluid. She may resume activities as tolerated. Consider repeat injection every 3 months as needed. <Slade Page MD - Last Filed: 07/08/22 16:59> History of Present Illness HPI Consult date: 07/09/22 <HAMLET Morocho - Last Filed: 07/09/22 07:26> 07/08/22 <Slade Page MD - Last Filed: 07/08/22 16:59> Chief complaint: CVA/Facial Hematoma <HAMLET Morocho - Last Filed: 07/09/22 07:26> Narrative: Patient resting comfortably in chair at the time of my visit. Patient was in the ER one month ago for falling a lot. She went to assisted living and then suffered a stroke on Friday. She fell 07/05/22 onto her left side. Her entire left side of her body was affected. She is right handed. She was not using her hand like usual so she had an xray in the ER. She also has left knee pain. History of arthritis and a previous fall one month ago. No numbness or tingling in her hand. Patient is a poor historian and her daughter was at the bedside acting as an independent historian. <HAMLET Morocho - Last Filed: 07/09/22 07:26> Review of Systems Review of Systems: All systems reviewed & are unremarkable except as noted in HPI and below <HAMLET Morocho - Last Filed: 07/09/22 07:26> [facility] Past Medical History Medical History: Medical History (Updated 07/08/22 @ 15:41 by HAMLET Morocho) Benign essential hypertension BMI 28.0-28.9,adult Cellulitis Chronic kidney disease, stage 3 Baseline creatinine around 1.20. Deep venous thrombosis Degenerative joint disease Diastolic dysfunction Recent echo showed mild mitral valve regurgitation, grade 1 diastolic dysfunction, ejection fraction of 69%. Hard of hearing Hyperlipidemia Kidney stones Memory loss Parathyroid adenoma Status post resection. Paroxysmal atrial fibrillation Followed by Dr. Alejo Del Rio. The patient had 1 episode atrial fibrillation following her hip replacement surgery in May 2018. Polymyalgia rheumatica In remission Valvular heart disease Echocardiogram May 2018 demonstrated EF of 70-75%, grade 1 diastolic dysfunction, mild LVH, moderate mitral regurgitation, mild aortic insufficiency, mild pulmonary hypertension with RVSP of 40-45, mild tricuspid regurgitation, mild pulmonic insufficiency <HAMLET Morocho - Last Filed: 07/09/22 07:26> Surgical History Surgical History: Surgical History (Updated 07/05/22 @ 15:04 by Disha Mcdermott NP) History of bunionectomy of both great toes History of left hip replacement May 2018 secondary to fracture
[2022-07-08] MEDS: methylPREDNISolone ACETATE 80 MG/ML VIAL IM (16:51)
[2022-07-08 17:02] LABS: Glucose Point of Care 134 mg/dl (65-105)
--- NOTE | 2022-07-08 17:20 | PM.IMPN ---
Progress Note: A&P Assessment and Plan (1) CVA (cerebral vascular accident): Code(s): I63.9 - Cerebral infarction, unspecified Status: Acute Assessment and Plan: Acute CVA Head CTA was read1. Low-attenuation in the right basal ganglia and right frontoparietal engel radiata suspicious for acute infarct. 2. Moderate nonspecific cerebral white matter disease, which likely represents chronic small vessel ischemic disease. 3. No aneurysm or significant intracranial arterial stenosis. 4. 0% stenosis of the proximal internal carotid arteries relative to normal distal artery lumen diameters (NASCET criteria). 5. Left cheek hematoma with active extravasation of contrast. -neurology has been consulted. f/u recs -continue with daily aspirin 81 mg , start Lipitor 40 mg p.o., katia hold plavix since we are starting Xarelto Neurology to modify antiplatelets and AC at will Patient has passed the swallowing test, without the risk of aspiration MRI suggest Acute infarctions of the right parietal coronal radiata and basal ganglia. No hemorrhage. -PT and OT evaluation greatly be appreciated -career development manager for possible rehab. Echo showed grade 1 diastolic dysfunction. Paroxysmal AFib -she does have a history of having AFib and is currently in sinus rhythm. The patient was recently taken off of her anticoagulation due to her frequent falls. Discussed with the patient an d daughter beside about anticoagulation, Daughter noted the patient was taken off anticoagulation due to frequent falls, she's had 4 falls this month. However discussed that given atrial fibrillation and a new stroke patient may benefit from full anticoagulation Her daughter agreed patient was started back on Xarelto. However advised to follow with Cardiology of discharge for possible left atrial appendage occlusion device. Severe left pain Orthopedic aspirated 60mls of blood-stained serosal fluid. f/u outpatient Left wrist injury Scapholunate dissociation concervative managemetn per ortho continue pain control OT followin g resume hypertension medication hypertension permission is over and optimize med to control BP at target range irbesartan 100 mg daily p.o., metoprolol 12.5 mg b.i.d. p.o. add norvasc 10 mg daily po orthostatic vital signs unremarkable. DVT prophylaxis on Xarelto (2) CKD (chronic kidney disease): Qualifiers: Chronic kidney disease stage: stage 2 (mild) Qualified Code(s): N18.2 - Chronic kidney disease, stage 2 (mild) Code(s): N18.9 - Chronic kidney disease, unspecified Status: Acute Assessment and Plan: -patient is at her baseline will continue to monitor (3) A-fib: Qualifiers: Atrial fibrillation type: unspecified Qualified Code(s): I48.91 - Unspecified atrial fibrillation Code(s): I48.91 - Unspecified atrial fibrillation Status: Acute Assessment and Plan: The patient is currently in sinus rhythm. Will resume blood thinner if okay for neurologist. (4) Diastolic dysfunction: Code(s): I51.89 - Other ill-defined heart diseases Status: Acute Assessment and Plan: Repeat echo with bubble study. (5) Hyperlipidemia: Qualifiers: Hyperlipidemia type: mixed hyperlipidemia Qualified Code(s): E78.2 - Mixed hyperlipidemia Code(s): E78.5 - Hyperlipidemia, unspecified Status: Acute Assessment and Plan: Continue with rosuvastatin (6) Benign essential hypertension: Code(s): I10 - Essential (primary) hypertension Status: Acute Assessment and Plan: Continue with metoprolol and (7) DM type 2 (diabetes mellitus, type 2): Qualifiers: Diabetes mellitus skilled nursing insulin use: without rn long term care use Diabetes mellitus complication status: without complication Qualified Code(s): E11.9 - Type 2 diabetes mellitus without complications Code(s): E11.9 - Type 2 diabetes mellitus without complic
[2022-07-08] MEDS: ROSUVASTATIN 10 MG TABLET 40 MG PO (19:40)
[2022-07-09] VITALS (11 sets, daily range): BP systolic 128–135; BP diastolic 67–72; PULSE 72–84; RESP 16–18; TEMP 36.6; O2SAT 98
[2022-07-09] MEDS: ALBUTEROL SULFATE NEB 2.5 MG/3 ML INH INHALATION ×2 (03:06→11:28)
[2022-07-09] MEDS: IPRATROPIUM BR 0.02% INH SOLN 0.5 MG/2.5 ML VIAL INHALATION ×2 (03:06→11:28)
[2022-07-09 08:51] LABS: Glucose Point of Care 142 mg/dl (65-105)
[2022-07-09] MEDS: IRBESARTAN 150 MG TABLET 300 MG PO (09:45)
[2022-07-09] MEDS: SODIUM CHLORIDE 0.9% IV 1,000 ML 75 ML IV CONT (09:45)
[2022-07-09] MEDS: ASPIRIN 81 MG ENTERIC TABLET PO (09:45)
[2022-07-09] MEDS: METOPROLOL TARTRATE 12.5 MG TABLET PO ×2 (09:45→16:56)
[2022-07-09] MEDS: amLODIPine BESYLATE 5 MG TABLET 10 MG PO (09:46)
[2022-07-09] MEDS: VITAMIN B COMPLEX CAPSULE 1 CAP PO (09:46)
[2022-07-09] MEDS: VITAMIN E 400 UNIT CAPSULE PO (09:46)
[2022-07-09] MEDS: ASCORBIC ACID 500 MG TABLET PO (09:46)
[2022-07-09] MEDS: THERAPEUTIC MULTIVITAMINS/MINERALS TAB (*BKC) 1 TABLET PO (09:46)
--- NOTE | 2022-07-09 10:07 | PM.PNORT ---
Progress Note: A&P Assessment and Plan (1) Left knee pain: Code(s): M25.562 - Pain in left knee Status: Acute (2) Left wrist injury: Code(s): S69.92XA - Unspecified injury of left wrist, hand and finger(s), initial encounter Status: Acute Plan Patient resting comfortably. Notes no pain in the wrist and significant improvement in pain and mobility of the knee. She may follow up outpatient if she would like knee injections every 3 months as needed. Subjective Subjective Date/Time Seen: 07/09/22 10:07 Interval history: Patient resting comfortably in bed. She notes her left knee is feeling significantly better. She is able to move it without pain. No pain with turning for the bedpan. She is very pleased with her progress. No pain in the left wrist as well. Review of Systems Review of Systems: All systems reviewed & are unremarkable except as noted in HPI and below Exam Narrative: 87 y/o female. Resting comfortably in chair. Alert and oriented x3. Mildly confused. Left wrist: No swelling, redness, warmth. No tenderness to palpation of the left wrist. Some decreased active range of motion. Likely due to stroke. No pain with passive range of motion. Normal wrist motion passively. Negative tinels. Normal light touch sensation. Distal pulses palpable. Left knee: Valgus deformity. Moderate swelling and ecchymosis. No warmth. Active range of motion 10-100 degrees. Tenderness at the bruised area of the knee. No pain with varus or valgus stress. No instability. Distal neurovascularly intact. Objective Data Vital Signs Vital Signs: Vital Signs - 24 hr 07/08/22 10:48 07/08/22 11:27 07/08/22 11:28 Temperature Pulse Rate 93 Respiratory Rate Blood Pressure 119/67 139/78 Pulse Oximetry Oxygen Delivery 07/08/22 11:28 07/08/22 10:48 07/08/22 13:07 Temperature Pulse Rate Respiratory Rate Blood Pressure 155/129 H Pulse Oximetry Oxygen Delivery Room Air Room Air 07/08/22 14:28 07/08/22 14:44 07/08/22 12:00 Temperature Pulse Rate 71 73 73 Respiratory Rate 18 18 Blood Pressure Pulse Oximetry Oxygen Delivery 07/08/22 14:00 07/08/22 17:36 07/08/22 16:00 Temperature 97.4 F L Pulse Rate 71 90 89 Respiratory Rate 18 Blood Pressure 134/77 Pulse Oximetry 100 Oxygen Delivery 07/08/22 20:00 07/08/22 20:57 07/08/22 21:10 Temperature Pulse Rate 70 72 Respiratory Rate 18 18 Blood Pressure Pulse Oximetry Oxygen Delivery Room Air 07/08/22 22:00 07/09/22 00:00 07/08/22 20:00 Temperature 97.8 F Pulse Rate 76 84 81 Respiratory Rate 18 Blood Pressure 131/73 Pulse Oximetry 97 Oxygen Delivery 07/09/22 03:06 07/09/22 03:20 07/09/22 04:00 Temperature Pulse Rate 75 83 84 Respiratory Rate 18 18 Blood Pressure Pulse Oximetry Oxygen Delivery 07/09/22 06:00 07/09/22 09:45 Temperature 97.9 F Pulse Rate 76 76 Respiratory Rate 18 Blood Pressure 128/72 Pulse Oximetry 98 Oxygen Delivery Intake/Output Intake/Output: Intake & Output 07/06/22 07/07/22 07/08/22 07/09/22 23:59 23:59 23:59 23:59 Intake Total 1720 2840 2100 1000 Output Total 650 Balance 1070 2840 2100 1000 Meds/Results Medications: Active Medications Generic Name Dose Route Start Last Admin Trade Name Freq PRN Reason Stop Dose Admin Albuterol 2.5 mg 07/05/22 14:00 07/09/22 08:06 Albuterol Sulfate Neb 2.5 Mg/3 Ml Inh INHALATION Not Given Q6HRT [facility] Amlodipine Besylate 10 mg 07/07/22 11:35 07/09/22 09:46 Amlodipine Besylate 5 Mg Tablet PO 10 mg QAM [facility] Administration Ascorbic Acid 500 mg 07/06/22 09:00 07/09/22 09:46 Ascorbic Acid 500 Mg Tablet PO 500 mg DAILY [facility] Administration Aspirin 81 mg 07/07/22 09:00 07/09/22 09:45 Aspirin 81 Mg Enteric Tablet PO 81 mg QAM [facility] Administration Calcium Carbonate 500 mg 07/06/22 09:00 07/09/22 09:46 Calcium
[2022-07-09 12:05] LABS: Glucose Point of Care 135 mg/dl (65-105)
--- NOTE | 2022-07-09 15:46 | PM.DS ---
DS: Admitting Diagnosis Discharge Date 07/09/22 Admitting Diagnosis Fall Acute CVA DS: Discharge Diagnosis Discharge Diagnosis (1) Left knee pain: Code(s): M25.562 - Pain in left knee Status: Acute (2) Acute CVA (cerebrovascular accident): Code(s): I63.9 - Cerebral infarction, unspecified Status: Acute (3) Facial laceration: Qualifiers: Encounter type: initial encounter Qualified Code(s): S01.81XA - Laceration without foreign body of other part of head, initial encounter Code(s): S01.81XA - Laceration without foreign body of other part of head, initial encounter Status: Acute (4) Left wrist injury: Code(s): S69.92XA - Unspecified injury of left wrist, hand and finger(s), initial encounter Status: Acute (5) CVA (cerebral vascular accident): Code(s): I63.9 - Cerebral infarction, unspecified Status: Acute DS: Summary Hospital Course Reason for hospitalization: Fall Acute CVA Hospital Course: ?87-year-old female patient who was just discharged from this hospital on 06/11/2022 after she sustained a fall.?The patient was taken off of her Eliquis due to the falls.Presented with new left sided facial droop.Neurology was consulted,found to have right hemispheric stroke with involvement of the basal ganglia and right frontoparietal coronal radiata with history of underlying atrial fibrillation.Plavix was discontinued, started on ASA, Xarelto, Statin. Ortho was consulted for severe left knee pain, her knee joint was aspirated and injected. Post procedure she had significant relief.Discharged to SNF in stable condition. Status at Discharge Overall status at discharge: patient is progressing back to baseline Time Spent with Patient Time attestation: Total time spent providing and/or coordinating discharge services: Time spent: Greater than 30 minutes Exam Narrative: ?GENERAL:? Pleasant,? in no acute distress. Well-nourished. - EYES: EOMI. Anicteric. - HENT: Moist mucous membranes.? Left facial droop - LUNGS: Clear to auscultation bilaterally, no wheezing, rhonchi, or rales. - CARDIOVASCULAR: Regular rate and rhythm. No murmur. No JVD. - ABDOMEN: Soft, non-tender and non-distended. No palpable masses. - EXTREMITIES: No edema. Peripheral pulses 2+. Non-tender. - NEUROLOGIC:? Weakness of the left arm and the left leg with strength grade 4 - PSYCHIATRIC: Awake, Alert and oriented x 3. Appropriate mood and affect. - SKIN: No rashes or lesions. Warm. - LYMPH: No cervical lymphadenopathy. DS: Data Data Completed and Pending Labs on day of discharge: Labs from last 24 hours 07/09/22 07/09/22 07/08/22 12:02 08:48 16:59 POC Capillary Glucose 135 H 142 H 134 H Discharge Plan Discharge Attending physician on discharge: Abbi Bernard Consulting providers: Reji Clark ; Slade Page Discharging Clinician: Abbi Bernard Anticipated Discharge Date/Time: 07/09/22 15:44 Patient Disposition: SNF Activity: as tolerated Diet: as tolerated and heart healthy Patient Instructions: Rivaroxaban (By mouth) Stand Alone Forms: General Discharge Information Follow-up/Referrals: Reji Clark MD [Physician] - 2 Weeks Slade Page MD [Physician] - 3 Weeks Discharge Medications: New amlodipine [Norvasc] 5 mg Tablet 10 mg PO QAM Qty: 30 0RF Xarelto 20 mg Tablet 20 mg PO DAILY@1700 Qty: 30 0RF aspirin 81 mg Tablet,Delayed Release (Dr/Ec) 81 mg PO QAM Qty: 30 0RF Continued Centrum Silver Women 8 mg iron-400 mcg-300 mcg tablet 1 tablet PO DAILY vitamin E (dl, acetate) 180 mg (400 unit) capsule 180 mg PO DAILY calcium carbonate-vitamin D3 600 mg(1,500mg) -800 unit tablet 1 tablet PO DAILY betamethasone dipropionate 0.05 % cream 1 applic topical BID PRN (Reason: itching) Qty: 15 2RF irbesartan 300 mg tablet 300 mg PO DAILY Rx Instructions: TAKE 1 TABLET BY MOUTH DAILY
[2022-07-09] MEDS: RIVAROXABAN 20 MG TABLET PO (16:56)
[2022-07-09 17:03] LABS: Glucose Point of Care 129 mg/dl (65-105)
[2022-07-09 17:21] LABS: EDCOVIDSCREEN Negative (Negative)
== END 2022-07-09 21:16 | DRG 65 ==
LOC: ANHED 09:39 → ANH3MED 13:56
PROVIDERS: Nurse Practitioner; Admitting Provider Family Medicine; Emergency Provider Emergency Medicine; PCP Internal Medicine; Visit Provider Internal Medicine
DX: I63.81 Other cerebral infarction due to occlusion or stenosis of small artery (principal); G81.94 Hemiplegia, unspecified affecting left nondominant side; R29.810 Facial weakness; S01.81XA Laceration without foreign body of other part of head, initial encounter; S69.92XA Unspecified injury of left wrist, hand and finger(s), initial encounter; I48.0 Paroxysmal atrial fibrillation; I12.9 Hypertensive chronic kidney disease with stage 1 through stage 4 chronic kidney disease, or unspecified chronic kidney disease; N18.30 Chronic kidney disease, stage 3 unspecified; E78.2 Mixed hyperlipidemia; E11.22 Type 2 diabetes mellitus with diabetic chronic kidney disease; R29.701 NIHSS score 1; I27.20 Pulmonary hypertension, unspecified; Z20.822 Contact with and (suspected) exposure to COVID-19; Z86.718 Personal history of other venous thrombosis and embolism; Z66 Do not resuscitate; Z96.642 Presence of left artificial hip joint; Z79.82 Long term (current) use of aspirin; Z79.899 Other long term (current) drug therapy; Z79.4 Long term (current) use of insulin; Z83.3 Family history of diabetes mellitus; Z87.891 Personal history of nicotine dependence
CPT/HCPCS: 12011; 36415; 70450; 70486; 70496; 70498; 70553; 71045; 72125; 73120; 73502; 73562; 80053; 81003; 82948; 83036; 83605; 83735; 84443; 84484; 85025; 85055; 85610; 85730; 87426; 87636; 92610; 93005; 94640; 96375; 97116; 97162; 97166; 97530; 97535; 99285; A9270; A9577; C8929; C9803; J1040; J7030; Q9957; Q9967

== ENCOUNTER 2022-08-15 07:39 | Emergency (ER) | payer MEDICARE, SELFPAY ==
[2022-08-15] VITALS (13 sets, daily range): BP systolic 143–152; BP diastolic 86–89; PULSE 85–105; RESP 12–20; TEMP 36.3; O2SAT 96–99
--- NOTE | ~2022-08-15 | US_ITS ---
EXAMINATION: US venous doppler UE DATE: 08/15/2022 09:51 INDICATION: Left upper limb edema. TECHNIQUE: Grayscale ultrasound images without and with compression and Doppler ultrasound images of the left upper extremity veins were obtained. COMPARISON: None. FINDINGS: The visualized portions of the left internal jugular vein, subclavian vein, axillary vein, brachial v eins, basilic vein, cephalic vein, radial vein, and ulnar vein are patent. IMPRESSION: 1. No deep venous thrombosis. Reviewed, dictated and finalized at location A.
--- NOTE | ~2022-08-15 | CT_ITS ---
CT Facial Bones and Cervical Spine Clinical Indication: Blunt trauma Technique: Contiguous axial scans were obtained through the facial bones and cervical spine followed by coronal and sagittal reconstructions. Dose reduction technique was used on this scan by utilizing automated exposure control and iterative reconstruction technique. The dose-length product (DLP) was 305.60 mGy-cm. COMPARISON: 07/05/2022 Findings: CT facial bones: No fractures are identified. There is mild bilateral ethmoid and sphenoid sinus dise ase. Remaining sinuses are clear. Intraorbital soft tissues appear normal. CT cervical spine: No fractures or subluxation. There is fusion across the C2-C3 disc space, as well as fusion of the bilateral C2-C3 facet joints. There is moderate to advanced degenerative disc and u ncovertebral degenerative change throughout the remainder of the cervical spine. There is multilevel mild facet arthropathy at the remaining cervical levels. There is probable mild bilateral neural fora arlen narrowing at C6-C7. Disc ossify complex present at C3-C4 probable mild canal stenosis. No preve rtebral soft tissue swelling. Impression: No fracture is seen in the facial bones. No fracture or subluxation of the cervical spine. Degenerative spondylosis of the cervical spine, similar to prior exam. Reviewed, dictated and finalized at location . Impression: No fracture is seen in the facial bones. No fracture or subluxation of the cervical spine. Degenerative spondylosis of the cervical spine, similar to prior exam.
--- NOTE | ~2022-08-15 | CT_ITS ---
CT head without contrast Indication: Head injury COMPARISON: 07/05/2022 Technique: Serial scans were obtained through the brain without the administration of contrast. Dose reduction technique was used on this scan by utilizing automated exposure control and iterative recon struction technique. The dose-length product (DLP) was 605.33 mGy-cm. Findings: Probable evolving subacute infarcts in the right engel radiata/periventricular white matte r. No definite acute infarct seen otherwise. No intracranial hemorrhage or mass lesion. The ventricle s and subarachnoid spaces are dilated, consistent with mild atrophy. Low attenuation regions are see n within the periventricular white matter bilaterally, likely representing changes from chronic micro vascular ischemic disease. There is no evidence of edema, mass effect or midline shift. The visuali zed paranasal sinuses and mastoid air cells are clear. Impression: Probable evolving subacute infarcts in the right engel radiata since 07/05/2022. If there is concern for additional acute ischemia, consider repeat MR at this time. No intracranial hemorrhage or mass lesion. Atrophy and chronic white matter changes, as above. Reviewed, dictated and finalized at location . Impression: Probable evolving subacute infarcts in the right engel radiata since 07/05/2022 . If there is concern for additional acute ischemia, consider repeat MR at this time. No intracranial hemorrhage or mass lesion. Atrophy and chronic white matter changes, as above.
--- NOTE | ~2022-08-15 | XR_ITS ---
AP view of the pelvis and AP and lateral views of the left hip Clinical history: Pain Findings: No acute fracture or dislocation is seen. Left hip arthroplasty in place. No hardware compl ication is evident. Right hip joint is intact. Soft tissues are unremarkable. Impression: No acute abnormality seen. Left hip arthroplasty in place. Reviewed, dictated and finalized at location . Impression: No acute abnormality seen. Left hip arthroplasty in place.
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
== END 2022-08-15 16:06 | disposition home or self-care (01) ==
PROVIDERS: Emergency Provider Emergency Medicine
DX: S00.83XA Contusion of other part of head, initial encounter (principal); S00.531A Contusion of lip, initial encounter; R60.9 Edema, unspecified; I12.9 Hypertensive chronic kidney disease with stage 1 through stage 4 chronic kidney disease, or unspecified chronic kidney disease; N18.30 Chronic kidney disease, stage 3 unspecified; I69.354 Hemiplegia and hemiparesis following cerebral infarction affecting left non-dominant side; I48.0 Paroxysmal atrial fibrillation; E78.5 Hyperlipidemia, unspecified; I38 Endocarditis, valve unspecified; M35.3 Polymyalgia rheumatica; E89.2 Postprocedural hypoparathyroidism; Z96.642 Presence of left artificial hip joint; Z87.442 Personal history of urinary calculi; Z86.718 Personal history of other venous thrombosis and embolism; Z98.42 Cataract extraction status, left eye; Z98.41 Cataract extraction status, right eye; Z96.1 Presence of intraocular lens; Z66 Do not resuscitate; Z79.01 Long term (current) use of anticoagulants; Z79.84 Long term (current) use of oral hypoglycemic drugs; M47.812 Spondylosis without myelopathy or radiculopathy, cervical region; W06.XXXA Fall from bed, initial encounter
CPT/HCPCS: 70450; 70486; 72125; 73502; 93971; 99284